=== PATIENT | male | born 1995 | race Caucasian/White ===

== ENCOUNTER 2020-03-03 11:52 | Emergency (ER) | payer SELFPAY ==
[2020-03-03 12:08] VITALS: BP 122/71; PULSE 85; RESP 16; TEMP 36.8; O2SAT 99
[2020-03-03 12:10] VITALS: BP 122/71; PULSE 85; RESP 16; TEMP 36.8; O2SAT 99
--- NOTE | 2020-03-03 12:21 | ED.URI ---
HPI - URI/Sore Throat General Chief Complaint: Upper Respiratory Infection Stated Complaint: Cold Sx Source: patient and RN notes reviewed Mode of arrival: ambulatory Limitations: no limitations History of Present Illness HPI Narrative: This is a 24-year-old white male that presented today complaining of sinus congestion and pain. Patient notes that he started having symptoms on Saturday. He did attempt to get an appointment at his doctor's office but was unable to. Patient was concerned about possible upper respiratory infection. Patient also complains of tenderness over sinuses and clear rhinorrhea. I will treat patient with antihistamine in my opinion it is too early to treat with antibiotics. The patient denies SOB, CP, palpitation, extremity numbness, lightheadedness, dizziness, constipation, diarrhea, chills, or fever. Patient did have to miss work due to his illness. Patient received a work statement and will return to work on Saturday03/07/2020. In my professional opinion patient does not need to be screened for COVID-19 he does not have a fever, dry cough, headache, loss of taste or smell, difficulty breathing, chest pain or aches or pains. MD elicited complaint: nasal congestion and sinus pain Related Data Allergies Allergy/AdvReac Type Severity Reaction Status Date / Time No Known Allergies Allergy Verified 03/03/20 12:01 Review of Systems Review of Systems: All systems reviewed & are unremarkable except as noted in HPI and below (10 point system review) Exam Narrative: Exam Narrative: GENERAL: This is a well-nourished, well-developed patient, in no apparent distress. HEAD: normocephalic, atraumatic. EYES: PERRL. Sclera clear/white. Vision is grossly intact. EARS: External ears normal, auditory canals clear and without drainage, TMs normal without perforation. Hearing grossly intact. NOSE: External nose normal with no obvious nasal discharge, nares without redness, patient has rhinorrhea, sinus tenderness THROAT: Mucous membranes moist, posterior pharynx clear. NECK: Neck supple, non-tender without lymphadenopathy, masses or thyromegaly. CARDIOVASCULAR: Regular rate and rhythm without murmurs, gallops, or rubs. RESPIRATORY: Clear to auscultation. Breath sounds equal bilaterally. No wheezes, rales, or rhonchi. GASTROINTESTINAL: Abdomen soft, non-tender, nondistended. Bowel sounds are active. No hepato-splenomegaly, or palpable masses. No guarding. SKIN: warm, intact with no suspicious lesions or rash, good texture and turgor. NEURO: awake, alert, and oriented to person, place and time. There were no obvious focal neurologic abnormalities. Steady gait EXTREMITIES: Normal range of motion. No edema. No calf tenderness. Negative Homans sign bilaterally. BACK: Nontender without deformity or crepitance. No flank tenderness. Const: General: no acute distress Course Course Emergency Course: Patient will discharge with antihistamine. Will not prescribe any antibiotics not deemed necessary at this time Vital Signs Vital signs: Vital Signs Temperature 98.2 F 03/03/20 12:08 Pulse Rate 85 03/03/20 12:08 Respiratory Rate 16 03/03/20 12:08 Blood Pressure 122/71 03/03/20 12:08 Pulse Oximetry 99 03/03/20 12:08 Temperature 98.2 F 03/03/20 12:10 Pulse Rate 85 03/03/20 12:10 Respiratory Rate 16 03/03/20 12:10 Blood Pressure 122/71 03/03/20 12:10 Pulse Oximetry 99 03/03/20 12:10 Discharge Plan Discharge Clinical Impression: Sinusitis, Upper respiratory infection Patient Disposition: Home, Self-Care Condition: Stable Instructions: Antibiotic Form, Sinusitis (ED) Additional Instructions: This is likely viral illness, no antibiotic is needed at this time. Treatment is aimed toward your specific symptoms. You must treat your symptoms in order to feel better while the virus runs it's course. Recommend antihistamine such as Benadryl at night time and Claritin/Zyrtec/Viktoriya during the
== END 2020-03-03 12:22 | disposition home or self-care (01) ==
PROVIDERS: Emergency Provider Nurse Practitioner; PCP Nurse Practitioner Family
DX: J32.9 Chronic sinusitis, unspecified (principal); J06.9 Acute upper respiratory infection, unspecified; J45.909 Unspecified asthma, uncomplicated; E11.9 Type 2 diabetes mellitus without complications
CPT/HCPCS: 99213; G0463

== ENCOUNTER 2020-11-10 16:28 | Emergency (ER) | payer OTHER, SELFPAY ==
--- NOTE | ~2020-11-10 | CT_ITS ---
EXAMINATION: CT abdomen pelvis wo con DATE: 11/10/2020 21:01 INDICATION: Abdominal pain. Vomiting. TECHNIQUE: Computed tomography (CT) of the abdomen and pelvis was performed without intravenous contr ast. Automated exposure control and iterative reconstruction technique were employed. The dose-length product was 202.18 mGy-cm. COMPARISON: None. FINDINGS: The visualized portions of the lung bases are clear without pneumonia or pleural effusion. The heart size is normal. No pericardial effusion. The liver, gallbladder, spleen, pancreas, adrenal glands, and kidneys are normal. There is no urolithiasis. There are no dilated loops of bowel. The ap pendix is normal. There are no pathologically enlarged lymph nodes. There is no free intraperitoneal fluid. There is mild thoracolumbar spondylosis. IMPRESSION: 1. No etiology for the patient's symptoms. Reviewed, dictated and finalized at location A.
--- NOTE | 2020-11-10 16:58 | ED.GENADULT ---
HPI - General Adult General Chief complaint: Nausea/Vomiting/Diarrhea Stated complaint: vomiting Time Seen by Provider: 11/10/20 16:33 Source: RN notes reviewed History of Present Illness HPI narrative: Patient presents emergency department from home for nausea vomiting. Patient states symptoms again yesterday morning if continued throughout today she has been unable to keep anything down denies any fevers or chills, chest pain shortness of breath abdominal pain diarrhea or any other symptoms states he is not taking medications for the symptoms Related Data Allergies Allergy/AdvReac Type Severity Reaction Status Date / Time No Known Allergies Allergy Verified 11/10/20 17:07 Review of Systems Review of Systems: Narrative: Gen.: Denies fevers or chills ENT: Denies congestion Respiratory: Denies shortness of breath or cough CV: Denies chest pain or palpitations GI: See HPI Musculoskeletal: Denies back pain or muscle pain Neuro: Denies numbness, tingling, weakness or focal weakness Skin: Denies rash Except as documented, all other systems reviewed and negative [facility] Past Medical History Medical History (Updated 11/10/20 @ 21:41 by Afshin Bass DO) Patient denies significant medical history Social History Social History (Updated 11/10/20 @ 16:59 by Afshin Bass DO) Smoking status: Current every day smoker Exam Narrative: Exam Narrative: APPEARANCE: No acute distress, nontoxic, resting in bed EYES: EOMI HEENT: Normocephalic, atraumatic, OMM RESPIRATORY: No respiratory distress Clear to auscultation bilaterally with no rhonchi wheezing or rales. CARDIOVASCULAR: Regular rate and rhythm without murmurs rubs or gallops. ABDOMINAL: Soft, nontender, nondistended, no rebound or guarding MUSCULOSKELETAl: Moves all extremities. No clubbing, cyanosis or edema. NEURO: Awake and alert. Following commands, speech normal, no focal deficits SKIN:: Warm, dry. No rashes lesions or abrasions PSYCHIATRIC: Normal affect/mood, Course Course Emergency Course: Patient able to eat and drink in ED states he is feeling better this time patient does states he has a history of recurrent nausea vomiting has never had formal work-up for Will refer to GI Discussed with patient results of workup and diagnosis. Repeat abdominal exam is soft and nontender. Discussed need for follow-up with primary care, proper use of medication, and reasons to return to the emergency department. Patient understands and agrees to current treatment plan Vital Signs Vital signs: Vital Signs Temperature 98.3 F 11/10/20 17:00 Pulse Rate 51 L 11/10/20 17:00 Respiratory Rate 20 11/10/20 17:00 Blood Pressure 142/70 H 11/10/20 17:00 Pulse Oximetry 95 11/10/20 17:00 Temperature 98.3 F 11/10/20 17:00 Pulse Rate 56 L 11/10/20 21:38 Respiratory Rate 18 11/10/20 21:38 Blood Pressure 105/55 L 11/10/20 21:38 Pulse Oximetry 99 11/10/20 21:38 Medical Decision Making Vital Signs Vital Signs: Vital Signs Temperature 98.3 F 11/10/20 17:00 Pulse Rate 51 L 11/10/20 17:00 Respiratory Rate 20 11/10/20 17:00 Blood Pressure 142/70 H 11/10/20 17:00 Pulse Oximetry 95 11/10/20 17:00 Temperature 98.3 F 11/10/20 17:00 Pulse Rate 56 L 11/10/20 21:38 Respiratory Rate 18 11/10/20 21:38 Blood Pressure 105/55 L 11/10/20 21:38 Pulse Oximetry 99 11/10/20 21:38 Lab Data Result diagrams: 11/10/20 17:02 11/10/20 20:14 Labs: Lab Results 11/10/20 11/10/20 11/10/20 Range/Units 17:02 17:02 18:21 WBC 15.4 H (4.5-10.0) K/mm3 RBC 5.76 (4.6-6.20) M/mm3 Hgb 17.8 (14.0-18.0) g/dL Hct 50.9 (42.0-52.0) % MCV 88.4 (80-100) fl MCH 30.9 (26-34) pg MCHC 35.0 (32-36) g/dl RDW 12.2 (11.5-14.5) % Plt Count 428 H (150-375) k/mm3 MPV 9.3 (7.4-10.4) fl Immature Gran % (Auto) 0.3 (0-0.5) % Neut % (Auto) 80.0 H (45.5-73.1) % Lymph % (A
[2020-11-10 17:00] VITALS: BP 142/70; PULSE 51; RESP 20; TEMP 36.8; O2SAT 95
[2020-11-10 17:10] LABS: Basophils Percent Auto 0.2 % (0.2-1.2); Eosinophils Percent Auto 0.1 % (0-4.4); Hematocrit 50.9 % (42.0-52.0); Hemoglobin 17.8 g/dL (14.0-18.0); Immature Granulocyte Absolute 0.05 K/mm3 (0.00-0.031); Immature Granulocyte Percent A 0.3 % (0-0.5); Lymphocytes Absolute Auto 1.63 K/mm3 (0.9-3.2); Lymphocytes Percent Auto 10.6 % (18.3-44.2); Mean Corpuscular Hemoglobin 30.9 pg (26-34); Mean Corpuscular Volume 88.4 fl (80-100); Mean Platelet Volume 9.3 fl (7.4-10.4); Monocytes Absolute Auto 1.4 K/mm3 (0.1-0.6); Monocytes Percent Auto 8.8 % (2.6-8.5); Neutrophils Absolute Auto 12.3 K/mm3 (1.3-6.7); Platelet Count Result 428 k/mm3 (150-375); Red Blood Count 5.76 M/mm3 (4.6-6.20); Red Cell Distribution Width 12.2 % (11.5-14.5); White Blood Count 15.4 K/mm3 (4.5-10.0)
[2020-11-10] MEDS: SODIUM CHLORIDE 0.9% IV 1,000 ML 999 ML IV CONT ×3 (17:21→21:36)
[2020-11-10] MEDS: ONDANSETRON INJ 4 MG/2 ML VIAL IV PUSH (17:21)
[2020-11-10 18:00] LABS: Alanine Aminotransferase 20 U/L (4-50); Albumin Level 5.4 g/dL (3.5-5.1); Alkaline Phosphatase 101 U/L (38-126); Aspartate Amino Transferase 29 U/L (17-59); Bilirubin,Total 2.1 mg/dL (0.2-1.3); Blood Urea Nitrogen 56 mg/dL (9-20); Calcium 10.4 mg/dL (8.4-10.2); Carbon Dioxide > 40 mmol/L (22-30); Chloride 72 mmol/L (98-107); Estimated Glomerular Filt Rate > 60; Glucose 168 mg/dL (75-110); Lipase 31 U/L (23-300); Potassium 3.3 mmol/L (3.4-5.0); Sodium 132 mmol/L (137-145)
[2020-11-10 18:22] VITALS: BP 143/78; PULSE 52; RESP 22; O2SAT 96
[2020-11-10 18:39] LABS: Add Urine Microscopic? YES; Appearance Urine Clear (Clear); Bacteria Urine Trace /hpf; Bilirubin Urine Negative (Negative); Blood Urine Negative (Negative); Color Urine Yellow (Yellow); Glucose Urine UA Negative (Negative); Ketones Urine 1+ mg/dL (Negative); Leukocyte Esterase Ur Negative LEU/UL (Negative); Mucus Urine Rare /lpf; Nitrate Urine Negative (Negative); Protein Urine 3+ mg/dL (Negative); RBC Urine 0-2 /hpf (0-2); Squamous Epithelial Cell Urine Rare /hpf (Few); Urobilinogen Urine Negative mg/dL (<2.0); WBC Urine 0-3 /hpf
[2020-11-10] MEDS: SODIUM CHLORIDE 0.9% IV 50 ML 100 ML (19:31)
[2020-11-10] MEDS: PROMETHAZINE HCL 25 MG/ML AMPUL 12.5 MG IV PUSH (19:31)
[2020-11-10 19:32] VITALS: BP 113/62; PULSE 52; O2SAT 97
[2020-11-10 20:36] LABS: Anion Gap 12 mmol/L (8-16); Blood Urea Nitrogen 45 mg/dL (9-20); Calcium 8.9 mg/dL (8.4-10.2); Carbon Dioxide 37 mmol/L (22-30); Chloride 84 mmol/L (98-107); Estimated Glomerular Filt Rate > 60; Glucose 143 mg/dL (75-110); Potassium 3.7 mmol/L (3.4-5.0); Sodium 133 mmol/L (137-145)
[2020-11-10 21:38] VITALS: BP 105/55; PULSE 56; RESP 18; O2SAT 99
[2020-11-10 22:55] VITALS: BP 137/73; PULSE 62; RESP 16; O2SAT 94
== END 2020-11-10 22:55 | disposition home or self-care (01) ==
PROVIDERS: Emergency Provider Emergency Medicine; PCP Nurse Practitioner Family
DX: R11.2 Nausea with vomiting, unspecified (principal); F17.200 Nicotine dependence, unspecified, uncomplicated
CPT/HCPCS: 36415; 74176; 80048; 80053; 81001; 83690; 85025; 96361; 96374; 96375; 99284; J2405; J2550; J7030

== ENCOUNTER 2021-02-17 17:37 | Emergency (ER) | payer OTHER, SELFPAY ==
[2021-02-17 17:46] VITALS: BP 119/70; PULSE 88; RESP 20; TEMP 36.7; O2SAT 100
--- NOTE | 2021-02-17 18:24 | ED.GENADULT ---
HPI - General Adult General Chief complaint: Wound/Laceration Stated complaint: insect bite Time Seen by Provider: 02/17/21 18:18 Source: patient and RN notes reviewed Mode of arrival: ambulatory Limitations: no limitations History of Present Illness HPI narrative: Patient presents today no work note. 4 days ago he was stung by a few wasps, 1 to the back of the neck, 1 to the back of the left leg, and 1 to the back of the right shoulder. For the days following this, he states he experienced some nausea and vomiting with decreased appetite and some body aches. He has not felt like going to work. The nausea and vomiting has since resolved, but the body aches have persisted. The bee stings themselves have been healing properly without any signs of infection. He has not been taking any medication for his body aches, joint aches. Patient also states he has had joint aches in the past does not necessarily believe that his current joint aches are related to the wasp stings. MD complaint: Joint pain, work note Related Data Allergies Allergy/AdvReac Type Severity Reaction Status Date / Time No Known Allergies Allergy Verified 11/10/20 17:07 Review of Systems Review of Systems: CONSTITUTIONAL: Denies fever, chills, or sweats. EYES: Denies visual changes, redness, or discharge. ENT: Denies rhinorrhea, congestion, sore throat, or otalgia. CARDIOVASCULAR: Denies chest pain, palpitations, or edema. RESPIRATORY: Denies cough or dyspnea. GASTROINTESTINAL: Denies abdominal pain, nausea, vomiting, or diarrhea. GENITOURINARY: Denies dysuria or hematuria. SKIN: Denies rash, itching, or wounds. MUSCULOSKELETAL: Denies back pain.+ Joint aches, body aches NEUROLOGIC: Denies headache, numbness, tingling, or weakness. PSYCH: Denies depression or anxiety. [facility] Past Medical History Medical History (Updated 02/17/21 @ 18:29 by Ivette Rivera, FIRST PRESS OPERATOR, ) Patient denies significant medical history Social History Social History (Updated 11/10/20 @ 16:59 by Afshin Bass DO) Smoking status: Current every day smoker Comments At time of signature, I have reviewed and agree with nursing past medical, surgical, social and family history unless otherwise noted. Please see nursing chart for further information. There is no relevant family history pertinent to the presenting complaint Exam Narrative: GENERAL: Well-appearing, well-nourished, and in no acute distress. HEAD: Normocephalic, atraumatic. EYES: EOMI. No redness or drainage. Conjunctivae normal. ENT: Mucous membranes pink and moist. NECK: Normal AROM. Supple. No lymphadenopathy. CHEST: No respiratory distress. Clear to auscultation. HEART: Regular rate and rhythm. No murmur appreciated. Normal peripheral pulses. ABDOMEN: Soft, nontender, nondistended, normal active bowel sounds. MUSCULOSKELETAL: No bony tenderness. EXTREMITIES: Normal range of motion. No edema. SKIN: Warm, dry, no rash. Capillary refill normal. Normal skin turgor. Stings to the back of the neck and shoulder are not visualized. Insect sting to the left popliteal fossa is healing appropriately without signs of bacterial infection. NEURO: No focal deficits. Alert and oriented x3. Gait steady. PSYCH: Normal affect. No signs of depression or anxiety. Course Vital Signs Vital signs: Vital Signs Temperature 98.0 F 02/17/21 17:46 Pulse Rate 88 02/17/21 17:46 Respiratory Rate 20 02/17/21 17:46 Blood Pressure 119/70 02/17/21 17:46 Pulse Oximetry 100 02/17/21 17:46 Temperature 98.0 F 02/17/21 17:46 Pulse Rate 88 02/17/21 17:46 Respiratory Rate 20 02/17/21 17:46 Blood Pressure 119/70 02/17/21 17:46 Pulse Oximetry 100 02/17/21 17:46 Reviewed Medical Decision Making Differential Diagnosis Differential Diagnosis: Viral syndrome, rheumatological disorder, nausea and vomiting, gastroenteritis, food poisoning, Vital Signs Vital Signs: Vital Signs Temperature 98.0 F 1
== END 2021-02-17 18:34 | disposition home or self-care (01) ==
PROVIDERS: Emergency Provider Nurse Practitioner; PCP Nurse Practitioner Family
DX: M25.541 Pain in joints of right hand (principal); F17.200 Nicotine dependence, unspecified, uncomplicated
CPT/HCPCS: 99212; G0463

== ENCOUNTER 2021-04-13 14:58 | Inpatient (IN) | payer OTHER, SELFPAY ==
[2021-04-13] VITALS (9 sets, daily range): BP systolic 136–167; BP diastolic 85–109; PULSE 79–100; RESP 12–18; TEMP 36.3–36.9; O2SAT 96–99; BMI 21.3
--- NOTE | ~2021-04-13 | XR_ITS ---
EXAMINATION: XR chest 2V DATE: 04/19/2021 13:50 INDICATION: Smoker presenting with cough and leukocytosis TECHNIQUE: PA and lateral views of the chest were obtained. COMPARISON: None FINDINGS: The lungs are clear with no focal airspace opacities, pulmonary edema, pleural effusion or pneumothor ax. The cardiomediastinal silhouette is normal. Mild anterior wedging of a couple adjacent mid thorac ic vertebral bodies. IMPRESSION: 1. No acute cardiopulmonary disease. Reviewed, dictated and finalized at location A. ITY MANAGER
--- NOTE | ~2021-04-13 | CT_ITS ---
EXAMINATION: CT BRAIN W/O DATE: 04/20/2021 13:18 INDICATION: Hyponatremia TECHNIQUE: Computed tomography (CT) of the head was performed without intravenous contrast. The dose- length product was 605.33 mGy-cm. Automated exposure control and iterative reconstruction technique w ere employed. COMPARISON: CT dated 06/10/2013 FINDINGS: Normal brain parenchymal volume for age. Normal bridges-white differentiation. No acute intrac ranial hemorrhage, infarction, mass or mass effect. No ventriculomegaly or midline shift. Midline sagittal images demonstrate a normal corpus callosum, c raniovertebral junction and sella turcica. Basilar cisterns are patent. Paranasal sinuses and mastoids are pneumatized. No depressed skull fractures. IMPRESSION: 1. No acute intracranial abnormality. Reviewed, dictated and finalized at location B. AL MANAGER
--- NOTE | ~2021-04-13 | CT_ITS ---
EXAMINATION: CT abdomen pelvis w con DATE: 04/13/2021 17:05 INDICATION: Abdomen pain TECHNIQUE: Computed tomography (CT) of the abdomen and pelvis was performed with 100 cc Omnipaque 350 intravenous contrast. The dose-length product was 207.53 mGy-cm. Automated exposure control and iter ative reconstruction technique were employed. COMPARISON: CT dated 11/10/2020 FINDINGS: Lung bases are normal. No significant pleural or pericardial effusion. Heart size is normal . No significant vascular abnormality. No lymphadenopathy. Fatty infiltration of the liver. The spleen, pancreas, adrenal glands and kidneys are normal. Gallbla dder is present. Nonobstructive bowel gas pattern. No abnormal pelvic masses or fluid collections. No free air or free fluid. No acute osseous abnormality. IMPRESSION: 1. No acute abdominal abnormality. No findings to account for patient's symptoms. Reviewed, dictated and finalized at location A. ARY WORKER IMPRESSION: 1. No acute abdominal abnormality. No findings to account for patient's symptom s.
--- NOTE | 2021-04-13 15:12 | ED.GENADULT ---
HPI - General Adult General Chief complaint: Nausea/Vomiting/Diarrhea Stated complaint: n/v Time Seen by Provider: 04/13/21 15:00 Source: RN notes reviewed History of Present Illness HPI narrative: Patient presents emergency room from home for weakness. Patient states he has been having nausea and vomiting for the past 6 days he states that with this he has had progressive weakness states he has a history of hypokalemia and states it feels the same as prior states nausea vomiting is associated with diffuse abdominal pain described as cramping denies any fevers or chills chest pain shortness of breath cough diarrhea or any other symptoms Related Data Allergies Allergy/AdvReac Type Severity Reaction Status Date / Time No Known Allergies Allergy Verified 11/10/20 17:07 Review of Systems Review of Systems: Gen.: Denies fevers or chills ENT: Denies congestion Respiratory: Denies shortness of breath or cough CV: Denies chest pain or palpitations GI: See HPI Musculoskeletal: Denies back pain or muscle pain Neuro: Denies numbness, tingling, weakness or focal weakness Skin: Denies rash Except as documented, all other systems reviewed and negative [facility] Past Medical History Medical History Patient denies significant medical history Social History Social History Smoking status: Current every day smoker Exam Narrative: APPEARANCE: No acute distress, nontoxic, resting in bed HEENT: Normocephalic, atraumatic, OMM RESPIRATORY: No respiratory distress, clear to auscultation bilaterally with no rhonchi wheezing or rales CARDIOVASCULAR: RRR s murmur ABDOMINAL: Soft nondistended diffusely tender palpation no rebound or guarding MUSCULOSKELETAl: Moves all extremities. No clubbing, cyanosis or edema. NEURO: Awake and alert. Following commands, speech normal, no focal deficits SKIN:: Warm, dry. Normal Color PSYCHIATRIC: Normal affect/mood Course Course Emergency Course: Discussed with pharmacy currently out of potassium bee to make potassium drip and 400 mL pharmacy states can give 100 mL peripherally and will put in pharmacist will put in order Discussed with CORINNA Muñoz for Dr Carrion presentation work-up agrees with admission at this time Discussed with patient and family results of workup and diagnosis. Discussed need for admission. Patient and family understand and agree to current treatment plan Vital Signs Vital signs: Vital Signs Temperature 97.3 F L 04/13/21 15:03 Pulse Rate 92 04/13/21 15:03 Respiratory Rate 16 04/13/21 15:03 Blood Pressure 167/109 H 04/13/21 15:03 Pulse Oximetry 98 04/13/21 15:03 Temperature 97.3 F L 04/13/21 15:03 Pulse Rate 90 04/13/21 16:24 Respiratory Rate 12 04/13/21 16:24 Blood Pressure 152/92 H 04/13/21 16:24 Pulse Oximetry 99 04/13/21 16:24 Medical Decision Making Vital Signs Vital Signs: Vital Signs Temperature 97.3 F L 04/13/21 15:03 Pulse Rate 92 04/13/21 15:03 Respiratory Rate 16 04/13/21 15:03 Blood Pressure 167/109 H 04/13/21 15:03 Pulse Oximetry 98 04/13/21 15:03 Temperature 97.3 F L 04/13/21 15:03 Pulse Rate 90 04/13/21 16:24 Respiratory Rate 12 04/13/21 16:24 Blood Pressure 152/92 H 04/13/21 16:24 Pulse Oximetry 99 04/13/21 16:24 Lab Data Result diagrams: 04/13/21 15:14 04/13/21 15:14 Labs: Lab Results 04/13/21 04/13/21 04/13/21 Range/Units 15:14 15:14 15:14 WBC 13.9 H (4.5-10.0) K/mm3 RBC 5.57 (4.6-6.20) M/mm3 Hgb 18.0 (14.0-18.0) g/dL Hct 47.5 (42.0-52.0) % MCV 85.3 (80-100) fl MCH 32.3 (26-34) pg MCHC 37.9 H (32-36) g/dl RDW 11.5 (11.5-14.5) % Plt Count 477 H (150-375) k/mm3 MPV 9.3 (7.4-10.4) fl Immature Gran % (Auto) 0.8 H (0-0.5) % Neut % (Auto) 70.5 (45.5-73.1) % Lymph % (Auto) 17.6 L (1
[2021-04-13 15:22] LABS: Basophils Percent Auto 0.3 % (0.2-1.2); Eosinophils Absolute Auto 0.1 K/mm3 (0-0.3); Eosinophils Percent Auto 0.8 % (0-4.4); Hematocrit 47.5 % (42.0-52.0); Immature Granulocyte Absolute 0.11 K/mm3 (0.00-0.031); Immature Granulocyte Percent A 0.8 % (0-0.5); Lymphocytes Absolute Auto 2.44 K/mm3 (0.9-3.2); Lymphocytes Percent Auto 17.6 % (18.3-44.2); Mean Corpuscular HGB Conc 37.9 g/dl (32-36); Mean Corpuscular Hemoglobin 32.3 pg (26-34); Mean Corpuscular Volume 85.3 fl (80-100); Mean Platelet Volume 9.3 fl (7.4-10.4); Monocytes Absolute Auto 1.4 K/mm3 (0.1-0.6); Neutrophils Absolute Auto 9.8 K/mm3 (1.3-6.7); Neutrophils Percent Auto 70.5 % (45.5-73.1); Platelet Count Result 477 k/mm3 (150-375); Red Blood Count 5.57 M/mm3 (4.6-6.20); Red Cell Distribution Width 11.5 % (11.5-14.5); White Blood Count 13.9 K/mm3 (4.5-10.0)
--- NOTE | 2021-04-13 15:40 | ECG_ITS ---
Measurements Intervals [place] Rate: 82 P: 63 UT: 135 QRS: 59 QRSD: 83 T: 20 QT: 520 QTc: 609 Interpretive Statements SINUS RHYTHM ST-T WAVE ABNORMALITY IN INFERIOR LEADS- CONSIDER ISCHEMIA BASELINE ARTIFACT- I, II, AVR, AVL, AVF, V5 ABNORMAL ECG Electronically Signed On 04-13-2021 22:00:09 [employer] by Mehrdad Rosenthal D.O.
[2021-04-13 15:41] LABS: Alanine Aminotransferase 25 U/L (4-50); Albumin Level 5.1 g/dL (3.5-5.1); Alkaline Phosphatase 91 U/L (38-126); Aspartate Amino Transferase 41 U/L (17-59); Bilirubin,Total 1.6 mg/dL (0.2-1.3); Blood Urea Nitrogen 27 mg/dL (9-20); Calcium 9.8 mg/dL (8.4-10.2); Carbon Dioxide > 40 mmol/L (22-30); Chloride 58 mmol/L (98-107); Estimated CRCL calculation 106 ml/min; Estimated Glomerular Filt Rate > 60; Glucose 254 mg/dL (65-110); Lipase 88 U/L (23-300); Magnesium 2.2 mg/dL (1.6-2.3); Potassium 2.8 mmol/L (3.4-5.0); Sodium 120 mmol/L (137-145)
[2021-04-13 15:55] LABS: Platelet Estimate Adequate (Adequate)
[2021-04-13] MEDS: SODIUM CHLORIDE 0.9% IV 1,000 ML 999 ML IV CONT (16:20)
[2021-04-13 16:25] LABS: Add Urine Microscopic? YES; Appearance Urine Cloudy (Clear); Bilirubin Urine Negative (Negative); Blood Urine Negative (Negative); Color Urine Amber (Yellow); Glucose Urine UA 3+ mg/dL (Negative); Ketones Urine 1+ mg/dL (Negative); Leukocyte Esterase Ur Negative LEU/UL (Negative); Mucus Urine Moderate /lpf; Nitrate Urine Negative (Negative); Protein Urine 2+ mg/dL (Negative); Specific Grav Ur 1.023 (1.001-1.035); Squamous Epithelial Cell Urine Rare /hpf (Few)
[2021-04-13 16:42] LABS: Alveolar/Arterial O2 Gradient 17.4 mmHg; Base Excess ABG 16.8 mEq/l (+/-2.0); Fractional Inspired Oxygen 21 %; HCO3 ABG 41.5 mEq/l (22.0-26.0); Oxygen Content ABG 22.3 %vol (16.0-22.0); Oxygen Saturation ABG 96.7 % (95.0-100.0); PCO2 ABG 46.7 mmHg (35.0-45.0); PO2 ABG 76.4 mmHg (80.0-100.0); PO2 FiO2 Ratio Arterial Blood 3.64 %; Total Hemoglobin 17.1 g/dL (12.0-18.0)
[2021-04-13 16:45] LABS: Device ROOM AIR; Modified Allen's Test Pass; Site Drawn LEFT RADIAL; pH ABG 7.567 (7.350-7.450)
[2021-04-13] MEDS: POTASSIUM CHLORIDE 20 MEQ TABLET 40 MEQ PO (17:30)
--- NOTE | 2021-04-13 19:16 | PC.NURSE ---
IV NS not fully infused, sent up to floor.
--- NOTE | 2021-04-13 19:36 | ADMGEN ---
This patient, Jose L Enriquez, was admitted to IMU Room 207-01 at 1930 on 04/13/21. Patient/family oriented to hospital policies and general routines including ID bracelet, bed and alarms, visiting hours, pain management, procedures, bathroom and other care routines, personal items, smoking policy, room service/diet, and visiting hours. Information on how to activate the Rapid Response Team has been discussed. Patient/Family are encouraged to report perceived risks to care and to ask questions if they do not understand what they are told or what they should do.
--- NOTE | 2021-04-13 20:00 | PM.IMHP ---
H&P: HPI History of Present Illness Date/Time: 04/13/21 20:00 Chief Complaint: Nausea, vomiting, and weakness. Narrative: This is a 26-year-old male smoker with history of GERD, diabetes, asthma, depression, and anxiety who presented to the emergency department earlier today from home for evaluation of nausea, vomiting, and weakness. Per patient report he began having nausea and vomiting last Saturday though he is unable to further qualify. It sounds as though he has not been able to keep much down and over the past couple of days he has gotten increasingly more weak with lightheadedness/dizziness upon standing. He has also noticed that his heart seems to be racing and that his urine output has decreased with darker colored urine. Within the last day or so he developed cramps in his legs similar to when he was hospitalized earlier this year at [facility] with hypokalemia and he came in today for evaluation. He was found to have several electrolyte abnormalities including a sodium of 120, potassium 2.8, chloride 58, and a serum carbon dioxide of greater than 40. He has potassium supplements at home that he will take if he feels that he needs them but he does not take them daily. According to the external medication history, he has not had any prescriptions filled since November 2020. He does not have visually take any [id number] medications or supplements though does admit to occasionally taking Tums for GERD or MiraLax if he feels as though he is getting constipated. No known personal or family history of genetic kidney disorder. Review of Systems Review of Systems: Twelve systems were reviewed. Weight has remained stable. No fever, chills, or sweats. No recent cold or flu symptoms. He denies sick contacts. No chest pain or shortness of breath. No cough. No diarrhea. No dysuria. Except as documented, all other systems were reviewed and are negative. [facility] Past Medical History Medical History (Updated 04/13/21 @ 21:15 by Wanda Tariq PA-C) Anxiety Asthma Depression Gastroesophageal reflux disease Tobacco dependence Type 2 diabetes mellitus Surgical History Surgical History (Updated 04/13/21 @ 21:03 by Wanda Tariq PA-C) No history of previous surgery Family History Family History (Updated 04/13/21 @ 21:03 by Wanda G. Gerling, PA-C) Mother Thyroid disease Social History Social History (Updated 04/13/21 @ 21:04 by Wanda Tariq PA-C) Social History: Surrogate decision maker: Tobi Whitlock, father. Code status: Full code. Smoking packs per day: 1 Smoking cigarettes per day: 20.0 Years smoked: 8 Smoking pack-years: 8.00 Smoking status: Current every day smoker Tobacco type: cigarettes Second hand tobacco smoke exposure: Yes Alcohol intake: former Substance use type: marijuana Additional living arrangements comments: Resides in [place]. Additional occupation/education comments: Works for an [employer]. Meds Home Medications and Allergies Home Medications Medication Instructions Recorded Confirmed Type famotidine [Pepcid] 20 mg PO DAILY #14 tablet 11/10/20 Rx Allergies Allergy/AdvReac Type Severity Reaction Status Date / Time No Known Allergies Allergy Verified 11/10/20 17:07 Vital Signs Vital Signs - 24 hr 04/13/21 15:03 04/13/21 16:24 04/13/21 18:24 Temperature 97.3 F L Pulse Rate 92 90 79 Respiratory Rate 16 12 Blood Pressure 167/109 H 152/92 H 136/88 Pulse Oximetry 98 99 04/13/21 18:25 04/13/21 18:27 04/13/21 20:00 Temperature 98.2 F Pulse Rate 96 99 100 Respiratory Rate 18 Blood Pressure 155/101 H 146/90 H 138/95 H Pulse Oximetry 97 04/13/21 20:18 Temperature Pulse Rate Respiratory Rate Blood Pressure Pulse Oximetry 98 Exam Narrative: General: Well-developed male supine in bed in no distress. Weight: 58.2 kg. BMI: 21.4. HEENT: PERRL, EOMI. Sclerae anicteric. Tacky mucous membranes. Neck: Supple. Res
[2021-04-13 20:06] LABS: Glucose Point of Care 135 mg/dl (65-105)
[2021-04-13 22:18] LABS: Total Protein Urine Random 11 mg/dL
[2021-04-13 22:20] LABS: Potassium Urine Random 35.8 meq/L; Sodium Urine Random 80 meq/L
[2021-04-13 22:30] LABS: Hemoglobin A1C 6.1 % (<5.7)
[2021-04-13 22:37] LABS: Blood Urea Nitrogen 23 mg/dL (9-20); Calcium 9.4 mg/dL (8.4-10.2); Carbon Dioxide > 40 mmol/L (22-30); Chloride 64 mmol/L (98-107); Estimated CRCL calculation 114 ml/min; Estimated Glomerular Filt Rate > 60; Glucose 164 mg/dL (65-110); Magnesium 2.2 mg/dL (1.6-2.3); Phosphorus 2.6 mg/dL (2.5-4.5); Potassium 2.5 mmol/L (3.4-5.0); Sodium 120 mmol/L (137-145)
[2021-04-13 23:25] LABS: Glucose Point of Care 181 mg/dl (65-105)
[2021-04-13] MEDS: POTASSIUM CHLORIDE 20 MEQ PACKET (FOR LIQUID) 40 MEQ PO (23:26)
[2021-04-14] VITALS (11 sets, daily range): BP systolic 122–137; BP diastolic 58–84; PULSE 64–94; RESP 16–18; TEMP 36.2–36.6; O2SAT 9–100
[2021-04-14 00:37] LABS: Free T4 Free Thyroxine Reflex 1.82 ng/dL (0.78-2.19)
[2021-04-14] MEDS: FAMOTIDINE 20 MG/2 ML VIAL IV PUSH ×3 (01:10→20:09)
[2021-04-14 01:26] LABS: Total Triiodothyronine (T3) 1.22 NG/ML (0.97-1.69)
[2021-04-14] MEDS: SODIUM CHLORIDE 0.9% IV 1,000 ML 125 ML IV CONT ×3 (01:35→17:36)
[2021-04-14 04:58] LABS: Hematocrit 39.1 % (42.0-52.0); Hemoglobin 14.6 g/dL (14.0-18.0); Mean Corpuscular HGB Conc 37.3 g/dl (32-36); Mean Corpuscular Hemoglobin 31.5 pg (26-34); Mean Corpuscular Volume 84.4 fl (80-100); Mean Platelet Volume 9.2 fl (7.4-10.4); Platelet Count Result 425 k/mm3 (150-375); Red Blood Count 4.63 M/mm3 (4.6-6.20); Red Cell Distribution Width 11.6 % (11.5-14.5); White Blood Count 14.1 K/mm3 (4.5-10.0)
[2021-04-14 05:20] LABS: Blood Urea Nitrogen 19 mg/dL (9-20); Calcium 9.1 mg/dL (8.4-10.2); Carbon Dioxide > 40 mmol/L (22-30); Chloride 76 mmol/L (98-107); Estimated CRCL calculation 114 ml/min; Estimated Glomerular Filt Rate > 60; Glucose 133 mg/dL (65-110); Magnesium 2.2 mg/dL (1.6-2.3); Potassium 3.4 mmol/L (3.4-5.0); Sodium 120 mmol/L (137-145)
[2021-04-14] MEDS: KCL 20 MEQ/SW 100 ML 100 ML 50 MEQ IVPB ×2 (07:34→10:19)
[2021-04-14 09:48] LABS: Glucose Point of Care 114 mg/dl (65-105)
[2021-04-14 12:49] LABS: Glucose Point of Care 133 mg/dl (65-105)
--- NOTE | 2021-04-14 13:17 | PM.CNNEP ---
Assessment and Plan Assessment and plan (1) Hyponatremia: Code(s): E87.1 - Hypo-osmolality and hyponatremia Status: Acute Assessment and Plan: history would suggest hypovolemia as etiology however, minimal improvement with normal saline IVFs TSH and cortisol okay check SPEP and UPEP; follow-up on serum/urine omolality continue IVFs for now noted initiation of salt tabs... follow repeat sodium levels (2) Hypokalemia: Code(s): E87.6 - Hypokalemia Status: Acute Assessment and Plan: presumably due to GI loss and diminished oral intake improving with K+ supplementation monitor magnesium as well (3) Metabolic alkalosis: Code(s): E87.3 - Alkalosis Status: Chronic Assessment and Plan: somewhat of a chronic issue from review of records related to GI issues(?) versus some other etiology.... follow for now (4) Nausea and vomiting: Code(s): R11.2 - Nausea with vomiting, unspecified Status: Acute Assessment and Plan: supportive treatment IVFs and IV antiemetics Will continue to follow History of Present Illness Reason for Consult Consult date: 04/14/21 Reason for consult: hyponatremia and hypokalemia Chief Complaint Chief complaint: Hypnoatremia,Hypokalemia, Nausea Vomiting, Prolong History of Present Illness Narrative: The patient is a 26-year-old male with a past medical history as outlined below who presented to [facility] Emergency room with complaints of nausea, vomiting, and generalized weakness According to the patient, he started having issues and problems with nausea and vomiting about a week ago but he is unable to give details in terms of how many times he vomited and how long each episode lasted. In any case, due to the nausea and vomiting, he has had poor oral intake for last several days if not longer. He reports that he has also noted increasing weakness and has had difficulty with lightheadedness and dizziness as well. He also reports subjective symptoms of tachycardia and that his urine output seems to be less than normal. He subsequently presented to the hospital emergency room for further evaluation Workup and evaluation emergency room demonstrated the patient be hemodynamically stable) effect a somewhat hypertensive) but in moderate distress secondary to the nausea vomiting and fatigue. Routine blood test demonstrated multiple electrolyte abnormalities including a sodium of 120, potassium of 2.8 climb a chloride of 58, and a serum carbon dioxide greater than 40. from review of his records, some of these electrolyte abnormalities are not a new finding. He was given supplemental potassium as well as IV fluids and subsequently admitted to the hospital for further evaluation and therapy. Since admission, his potassium has been slowly improving with aggressive supplementation but his serum sodium has been slow to do so in spite of IV fluid resuscitation. His nausea and vomiting appear to be doing better as he was eating a meal at the time of my visit without any problems/issues. Renal consultation was requested due to his hyponatremia as well as hypokalemia on presentation to the hospital. As already mentioned, his potassium appears to be improving with aggressive supplementation but his sodium level has not changed all that significantly. As already mentioned, he denies any history of excessive free water intake and if anything, his fluid intake has been suboptimal in the last week given his nausea and vomiting. He is not on any specific medications with regard to SSRIs, seizure medications, or narcotics although his urine tox screen did show evidence of marijuana and opioids. Currently, at the time my visit, he appears to be in no acute distress. Review of Systems Review of Systems: As per HPI. [facility] Past Medical History Medical History (Updated 04/15/21 @ 07:06 by Zheng Reza MD) Anxiety Ast
[2021-04-14 13:43] LABS: Amphetamine Screen Urine Negative (Negative); Barbiturate Screen Urine Negative (Negative); Benzodiazepines Screen Urine Negative (Negative); Cannabinoid Screen Urine Positive (Negative); Cocaine Screen Urine Negative (Negative); Methadone Screen Urine Negative (Negative); Opiate Screen Urine Positive (Negative); Phencyclidine Screen Urine Negative (Negative)
[2021-04-14 13:46] LABS: Potassium Urine Random 36.6 meq/L; Sodium Urine Random 36 meq/L
[2021-04-14 17:03] LABS: Glucose Point of Care 138 mg/dl (65-105)
[2021-04-14] MEDS: SODIUM CHLORIDE 1 GM TABLET PO (17:37)
[2021-04-14 18:10] LABS: Albumin Level 3.7 g/dL (3.5-5.1); Anion Gap 7 mmol/L (8-16); Blood Urea Nitrogen 21 mg/dL (9-20); Calcium 8.3 mg/dL (8.4-10.2); Carbon Dioxide 33 mmol/L (22-30); Chloride 82 mmol/L (98-107); Estimated CRCL calculation 91 ml/min; Estimated Glomerular Filt Rate > 60; Glucose 115 mg/dL (65-110); Phosphorus 1.2 mg/dL (2.5-4.5); Potassium 3.4 mmol/L (3.4-5.0); Sodium 122 mmol/L (137-145)
--- NOTE | 2021-04-14 18:45 | PM.IMPN ---
Progress Note: A&P Assessment and Plan (1) Volume depletion: Code(s): E86.9 - Volume depletion, unspecified Status: Acute Assessment and Plan: The patient originally presented to the emergency department with complaints of persistent nausea vomiting and weakness since last Saturday. He reports several day of vomiting and poor oral intake. Urine toxicology screen is positive for opiates and cannabinoid. At presentation patient was stable and afebrile. He was actually hypertensive with a blood pressure of 167/109. Repeat blood pressure was 152/92 in the emergency department. Initial chemistry revealed profound electrolyte disturbances with hyponatremia serum sodium of 120, potassium of 2.5, chloride of 64, bicarbonate of 40, BUN 23, creatinine 0.7. Calcium magnesium and phosphorous were normal 9.4, 2.2 and 2.6 respectively. Patient was started on supplementation with potassium is potassium was normalized this morning. (2) Hypokalemia: Code(s): E87.6 - Hypokalemia Status: Acute Assessment and Plan: Patient has reported persistent vomiting for several days. Urine tox screen is positive for cannabinoid. He may have had hyperemesis disorder secondary to cannabinoid ingestion. Potassium was improved after repletion. (3) Hyponatremia: Code(s): E87.1 - Hypo-osmolality and hyponatremia Status: Acute Assessment and Plan: The etiology of his hypo natremia isn't clear. His urine toxicology revealed opiates and cannabinoid. He is hypertensive at presentation with a blood pressure of 167/109. He started on high IV fluids with mild improvement of serum sodium from 120-122. Nephrology has been consulted. (4) Hypochloremia: Code(s): E87.8 - Other disorders of electrolyte and fluid balance, not elsewhere classified Status: Acute Assessment and Plan: Patient presents significant metabolic alkalosis and hypochloremia. Currently being evaluated by Nephrology for and hydrated electrolytic disorder. (5) Metabolic alkalosis: Code(s): E87.3 - Alkalosis Status: Acute Assessment and Plan: As above. (6) Prolonged QT interval: Code(s): R94.31 - Abnormal electrocardiogram [ECG] [EKG] Status: Acute Assessment and Plan: Repeat EKG after correction of potassium (7) Gastroesophageal reflux disease: Code(s): K21.9 - Gastro-esophageal reflux disease without esophagitis Status: Acute Assessment and Plan: Start PPI. (8) Type 2 diabetes mellitus with hyperglycemia: Code(s): E11.65 - Type 2 diabetes mellitus with hyperglycemia Status: Acute Assessment and Plan: His A1c 6.1. Send C-peptide. Nonicteric Accu-Cheks every 6 hours. Start insulin sliding scale coverage. (9) Tobacco dependence: Code(s): F17.200 - Nicotine dependence, unspecified, uncomplicated Status: Acute Assessment and Plan: Counseled. (10) Nausea and vomiting: Code(s): R11.2 - Nausea with vomiting, unspecified Status: Acute Assessment and Plan: If Zofran p.r.n.. Patient counseled to stop cannabinoid likely the culprit. Additional Plan The patient presented to the emergency department today with nausea, vomiting, and progressive weakness since last Saturday. He is quite dehydrated with multiple electrolyte abnormalities as detailed above with evidence of metabolic alkalosis on ABG. At this time he will be admitted to the IMU for closer monitoring given electrolyte abnormalities and prolonged QT (due to electrolyte abnormalities?). His electrolytes will be replaced and monitored closely and he will be hydrated overnight. Will check urine electrolytes given multiple abnormalities. I did offer him some water this evening and he began to vomit again thus we will continue with NPO status for now as I am hesitant to give him any antiemetics given his long QT. CT of the abdomen pelvis did not show any a
[2021-04-14] MEDS: PANTOPRAZOLE 40 MG TABLET PO (20:09)
[2021-04-14] MEDS: POTASSIUM/PHOSPHORUS/SODIUM 1.5 GM PACKET 1 PACKET PO (20:09)
--- NOTE | 2021-04-14 20:45 | PC.NURSE ---
This patient, Jose L Enriquez, was transferred to [facility] on 04/14/21 at 2035. Personal belongings sent with patient. Report given to Lesa JIMENEZ. Appropriate documentation sent with patient.
--- NOTE | 2021-04-14 22:19 | PC.NURSE ---
This patient, Jose L Enriquez, was received from [ IMU] on 04/14/21 at 2030. Patient/family oriented to unit policies and routines
[2021-04-15] VITALS (13 sets, daily range): BP systolic 124–141; BP diastolic 66–85; PULSE 76–94; RESP 16; TEMP 36.3–36.7; O2SAT 98–99
[2021-04-15] MEDS: SODIUM CHLORIDE 0.9% IV 1,000 ML 125 ML IV CONT (03:26)
[2021-04-15 06:46] LABS: Hematocrit 35.4 % (42.0-52.0); Hemoglobin 12.9 g/dL (14.0-18.0); Mean Corpuscular HGB Conc 36.4 g/dl (32-36); Mean Corpuscular Hemoglobin 32.7 pg (26-34); Mean Corpuscular Volume 89.6 fl (80-100); Mean Platelet Volume 9.4 fl (7.4-10.4); Platelet Count Result 303 k/mm3 (150-375); Red Blood Count 3.95 M/mm3 (4.6-6.20); Red Cell Distribution Width 11.6 % (11.5-14.5); White Blood Count 10.3 K/mm3 (4.5-10.0)
[2021-04-15 08:15] LABS: Glucose Point of Care 133 mg/dl (65-105)
[2021-04-15] MEDS: SODIUM CHLORIDE 1 GM TABLET PO (08:48)
[2021-04-15] MEDS: FAMOTIDINE 20 MG/2 ML VIAL IV PUSH ×2 (08:48→20:35)
[2021-04-15] MEDS: POTASSIUM CHLORIDE 20 MEQ PACKET (FOR LIQUID) 40 MEQ PO (08:48)
[2021-04-15] MEDS: PANTOPRAZOLE 40 MG TABLET PO ×2 (08:48→20:35)
[2021-04-15 09:00] LABS: Anion Gap 5 mmol/L (8-16); Blood Urea Nitrogen 11 mg/dL (9-20); Calcium 8.8 mg/dL (8.4-10.2); Carbon Dioxide 36 mmol/L (22-30); Chloride 88 mmol/L (98-107); Estimated CRCL calculation 114 ml/min; Estimated Glomerular Filt Rate > 60; Glucose 119 mg/dL (65-110); Magnesium 1.8 mg/dL (1.6-2.3); Potassium 3.8 mmol/L (3.4-5.0); Sodium 129 mmol/L (137-145)
--- NOTE | 2021-04-15 09:33 | PM.IMPN ---
Progress Note: A&P Assessment and Plan (1) Volume depletion: Code(s): E86.9 - Volume depletion, unspecified Status: Acute Assessment and Plan: The patient originally presented to the emergency department with complaints of persistent nausea vomiting and weakness since last Saturday. He reports several days of vomiting and poor oral intake. Urine toxicology screen is positive for opiates and cannabinoid. At presentation patient was stable and afebrile. He was actually hypertensive with a blood pressure of 167/109. Repeat blood pressure was 152/92 in the emergency department. Blood pressure today is 138/85. Initial chemistry revealed profound electrolyte disturbances with hyponatremia serum sodium of 120, potassium of 2.5, chloride of 64, bicarbonate of 40, BUN 23, creatinine 0.7. Calcium magnesium and phosphorous were normal 9.4, 2.2 and 2.6 respectively. Patient was started on IV fluid resuscitation, was repleted with potassium. His serum sodium improved from 120 to 129 within the last 24 hours. (2) Hypokalemia: Code(s): E87.6 - Hypokalemia Status: Acute Assessment and Plan: Patient has reported persistent vomiting for several days. Urine tox screen is positive for cannabinoid. He may have had hyperemesis disorder secondary to cannabinoid ingestion. Potassium was improved after repletion. Patient was counseled to quit using marijuana. (3) Hyponatremia: Code(s): E87.1 - Hypo-osmolality and hyponatremia Status: Acute Assessment and Plan: Initially with mild improvement of serum sodium from 120 to 122. Overnight the serum sodium had improved from 120 to 129 with the last 24 hours. IV normal saline and salt tablets were stopped. Patient was started on dextrose and receive 1 dose of DDAVP per Renal recommendation. Will follow-up the next serum sodium closely. (4) Hypochloremia: Code(s): E87.8 - Other disorders of electrolyte and fluid balance, not elsewhere classified Status: Acute Assessment and Plan: Patient presents significant metabolic alkalosis and hypochloremia. This seems to have been a chronic issue for him. He is improving with IV fluid resuscitation. Follow-up Nephrology recommendations. (5) Metabolic alkalosis: Code(s): E87.3 - Alkalosis Status: Chronic Assessment and Plan: As above. (6) Prolonged QT interval: Code(s): R94.31 - Abnormal electrocardiogram [ECG] [EKG] Status: Acute Assessment and Plan: Repeat EKG today. (7) Gastroesophageal reflux disease: Code(s): K21.9 - Gastro-esophageal reflux disease without esophagitis Status: Acute Assessment and Plan: Continue PPI. give tums as needed for indigestion. (8) Type 2 diabetes mellitus with hyperglycemia: Code(s): E11.65 - Type 2 diabetes mellitus with hyperglycemia Status: Acute Assessment and Plan: His A1c 6.1. C-peptide is pending. TSH was normal. random cortisol was low at 15. We will send cosyntropin stimulation test per Nephrology recommendation. (9) Tobacco dependence: Code(s): F17.200 - Nicotine dependence, unspecified, uncomplicated Status: Acute Assessment and Plan: Counseled. (10) Nausea and vomiting: Code(s): R11.2 - Nausea with vomiting, unspecified Status: Acute Assessment and Plan: Continue Zofran p.r.n.. Patient counseled to stop cannabinoid which appears to be the culprit. Subjective Date/time seen: 04/15/21 09:33 S: Patient was examined at the bedside. He is feeling better. He still reports some low back pain with vomiting. Muscle pain is improving. Review of Systems Review of Systems: All systems reviewed & are unremarkable except as noted in HPI and below Constitutional: Constitutional: Reports as per HPI, Reports fatigue, Reports lethargy and Reports poor appetite Eyes: Eyes: Reports as per HPI and Reports no additional eye co
[2021-04-15] MEDS: DEXTROSE 5% IN WATER 500 ML 180 ML IV CONT (10:41)
[2021-04-15] MEDS: DESMOPRESSIN ACETATE 4 MCG/ML AMP 2 MCG IV PUSH ×2 (10:42→14:41)
--- NOTE | 2021-04-15 11:23 | PM.PNNEP ---
Progress Note: A&P Assessment and Plan (1) Hyponatremia: Code(s): E87.1 - Hypo-osmolality and hyponatremia Status: Acute Assessment and Plan: Hyponatremia. TSH okay, and cortisol is below 15. Will check Cortrosyn stim test. check SPEP and UPEP; follow-up on serum/urine omolality Sodium corrected from 120-129 over the last 24hours. Will give D5W for 2hours and a shot of DDAVP and follow his sodium levels. He is getting salt tablets plus saline. Will check a sodium level after the D 5 W is in. Then go from there. (2) Hypokalemia: Code(s): E87.6 - Hypokalemia Status: Acute Assessment and Plan: presumably due to GI loss and diminished oral intake (3) Metabolic alkalosis: Code(s): E87.3 - Alkalosis Status: Chronic Assessment and Plan: somewhat of a chronic issue from review of records May be due to GI issues. May be due to hypokalemia. follow for now (4) Nausea and vomiting: Code(s): R11.2 - Nausea with vomiting, unspecified Status: Acute Assessment and Plan: This is improved. Getting D5W now. Depending on sodium level may restart saline or half-normal saline after that. Subjective Date/time seen: 04/15/21 11:23 Interval history: Patient feels better. He still has some lower back pain that came with vomiting. Exam Narrative: GENERAL APPEARANCE: well developed well nourished male in no acute distress HEENT: normocephalic, atraumatic, CARDIOVASCULAR: RRR, normal S1 and S2, no rub or gallop RESPIRATORY: clear ABDOMEN: soft, nontender, nondistended, positive bowel sounds present EXTREMITIES: no evidence of cyanosis, clubbing, or edema Objective Data Vital Signs Vital Signs: Vital Signs - 24 hr 04/14/21 12:00 04/14/21 16:00 04/14/21 20:50 Temperature 36.6 C 36.6 C Pulse Rate 77 77 85 Respiratory Rate 18 16 Blood Pressure 127/58 L 137/84 Pulse Oximetry 100 100 04/14/21 23:19 04/15/21 06:00 04/15/21 08:00 Temperature 36.5 C Pulse Rate 76 76 Respiratory Rate 16 16 Blood Pressure 124/66 Pulse Oximetry 99 99 99 Intake/Output Intake/Output: Intake & Output 04/12/21 04/13/21 04/14/21 04/15/21 23:59 23:59 23:59 23:59 Intake Total 3500 1790 Output Total 1400 600 Balance 2100 1190 Meds/Results Medications: Active Medications Generic Name Dose Route Start Last Admin Trade Name Freq PRN Reason Stop Dose Admin Dextrose 12.5 gm 04/13/21 21:13 Dextrose 50% 25 Gm/50 Ml Syringe IV PUSH PRN PRN Hypoglycemia Protocol Diphenhydramine HCl 25 mg 04/14/21 18:56 Diphenhydramine Hcl Cap 25 Mg Capsule PO Q6H PRN nausea and vomiting Famotidine 20 mg 04/13/21 21:00 04/15/21 08:48 Famotidine 20 Mg/2 Ml Vial IV PUSH 20 mg Q12HR JANNA Administration Glucagon 1 mg 04/13/21 21:13 Glucagon For Inj 1 Mg Vial IM PRN PRN Hypoglycemia Protocol Glucose 15 gm 04/13/21 21:13 Glucose Oral Gel 15 Gm Of Glucse In 37.5 Gm Tube PO PRN PRN Hypoglycemia Protocol Dextrose 1,000 mls @ 100 mls/hr 04/13/21 21:13 Dextrose 5% 1,000 Ml IVPB PRN PRN Hypoglycemia Protocol Dextrose 500 mls @ 180 mls/hr 04/15/21 09:50 04/15/21 10:41 Dextrose 5% In Water IV CONT 04/15/21 11:49 180 mls/hr .[id number] JANNA Administration Insulin Aspart 2 - 5 units 04/14/21 08:00 04/15/21 08:03 Insulin Aspart (*Bkc) 100 Units/Ml SUB-Q Not Given TIDWM JANNA Protocol Pantoprazole Sodium 40 mg 04/14/21 21:00 04/15/21 08:48 Pantoprazole 40 Mg Tablet PO 40 mg Q12HR JANNA Administration Potassium Chloride 40 meq 04/15/21 09:00 04/15/21 08:48 Potassium Chloride 20 Meq Packet (For Liquid) PO 40 meq DAILY JANNA Administration Radiology Results: ITS Impressions Abdomen/Pelvis CT 04/13/21 17:07 IMPRESSION: 1. No acute abdominal abnormality. No findings to account for patient's symptom
[2021-04-15 11:54] LABS: Glucose Point of Care 138 mg/dl (65-105)
[2021-04-15 12:47] LABS: Sodium 129 mmol/L (137-145)
[2021-04-15 12:51] LABS: Anion Gap 5 mmol/L (8-16); Blood Urea Nitrogen 11 mg/dL (9-20); Calcium 8.7 mg/dL (8.4-10.2); Carbon Dioxide 35 mmol/L (22-30); Chloride 88 mmol/L (98-107); Estimated CRCL calculation 114 ml/min; Estimated Glomerular Filt Rate > 60; Glucose 106 mg/dL (65-110); Potassium 3.8 mmol/L (3.4-5.0); Sodium 128 mmol/L (137-145)
[2021-04-15 12:51] LABS: Phosphorus 1.4 mg/dL (2.5-4.5)
[2021-04-15] MEDS: diphenhydrAMINE HCl CAP 25 MG CAPSULE PO (12:58)
--- NOTE | 2021-04-15 13:19 | PM.EVENT ---
Event Note Event Note Event Note: Patient repeat serum sodium is 129. Will repeat DDAVP single dose and start dextrose at 180 cc/hour follow-up serum sodium 1 hour after DDAVP. His phosphorous remains low at 1.6. We will start supplementation with Neutra-Phos a pack 3 times a day for 2 days. Case was discussed with Dr. Varela, power technician.
--- NOTE | 2021-04-15 14:07 | ECG_ITS ---
Measurements Intervals [place] Rate: 68 P: 26 NV: 141 QRS: 27 QRSD: 83 T: 9 QT: 440 QTc: 470 Interpretive Statements SINUS RHYTHM NONSPECIFIC ST ELEVATION IN ANTERIOR LEADS BORDERLINE T WAVE ABNORMALITY- INFERIOR LEADS BORDERLINE ECG Electronically Signed On 04-15-2021 15:58:55 COMMODITIES CLERK by Mehrdad Rosenthal D.O.
[2021-04-15] MEDS: POTASSIUM/PHOSPHORUS/SODIUM 1.5 GM PACKET 1 PACKET PO ×2 (14:41→18:01)
[2021-04-15] MEDS: DEXTROSE 5% 1,000 ML 1,000 ML 180 ML IV CONT ×2 (14:41→23:09)
[2021-04-15 15:11] LABS: Sodium 123 mmol/L (137-145)
[2021-04-15 16:38] LABS: Glucose Point of Care 112 mg/dl (65-105)
[2021-04-15 16:49] LABS: Phosphorus 1.8 mg/dL (2.5-4.5)
[2021-04-15 20:18] LABS: Sodium 121 mmol/L (137-145)
[2021-04-16] VITALS (7 sets, daily range): BP systolic 132–145; BP diastolic 70–86; PULSE 79–93; RESP 16–18; TEMP 36.2–36.6; O2SAT 99–100
[2021-04-16] MEDS: DEXTROSE 5% 1,000 ML 1,000 ML 180 ML IV CONT ×2 (03:36→18:07)
[2021-04-16 05:01] LABS: Osmolality, Urine 711 mOsm/kg (50-1200)
[2021-04-16 06:11] LABS: C-Peptide 1.43 ng/mL (0.80-3.85)
[2021-04-16 06:51] LABS: Hematocrit 34.6 % (42.0-52.0); Hemoglobin 12.9 g/dL (14.0-18.0); Mean Corpuscular HGB Conc 37.3 g/dl (32-36); Mean Corpuscular Hemoglobin 33.2 pg (26-34); Mean Corpuscular Volume 89.2 fl (80-100); Mean Platelet Volume 9.5 fl (7.4-10.4); Platelet Count Result 358 k/mm3 (150-375); Red Blood Count 3.88 M/mm3 (4.6-6.20); Red Cell Distribution Width 11.6 % (11.5-14.5); White Blood Count 12.1 K/mm3 (4.5-10.0)
[2021-04-16 07:07] LABS: Albumin Level 3.6 g/dL (3.5-5.1); Anion Gap 4 mmol/L (8-16); Blood Urea Nitrogen 7 mg/dL (9-20); Calcium 8.8 mg/dL (8.4-10.2); Carbon Dioxide 31 mmol/L (22-30); Chloride 87 mmol/L (98-107); Estimated CRCL calculation 132 ml/min; Estimated Glomerular Filt Rate > 60; Glucose 166 mg/dL (65-110); Magnesium 1.6 mg/dL (1.6-2.3); Phosphorus 1.7 mg/dL (2.5-4.5); Potassium 3.7 mmol/L (3.4-5.0); Sodium 122 mmol/L (137-145)
[2021-04-16 08:42] LABS: Glucose Point of Care 135 mg/dl (65-105)
--- NOTE | 2021-04-16 09:04 | PM.IMPN ---
Progress Note: A&P Assessment and Plan (1) Volume depletion: Code(s): E86.9 - Volume depletion, unspecified Status: Acute Assessment and Plan: The patient originally presented to the emergency department with complaints of persistent nausea vomiting and weakness since last Saturday. He reports several days of vomiting and poor oral intake. Urine toxicology screen is positive for opiates and cannabinoid. At presentation patient was stable and afebrile. He was actually hypertensive with a blood pressure of 167/109. Repeat blood pressure was 152/92 in the emergency department. Blood pressure today is 138/85. Initial chemistry revealed profound electrolyte disturbances with hyponatremia serum sodium of 120, potassium of 2.5, chloride of 64, bicarbonate of 40, BUN 23, creatinine 0.7. Calcium magnesium and phosphorous were normal 9.4, 2.2 and 2.6 respectively. Patient was started on IV fluid resuscitation, was repleted with potassium. His serum sodium improved from 120 to 129 within the last 24 hours. 04/16/2021 Patient is feeling slightly better now, will continue current treatment. Monitor electrolytes. (2) Hypokalemia: Code(s): E87.6 - Hypokalemia Status: Acute Assessment and Plan: Patient has reported persistent vomiting for several days. Urine tox screen is positive for cannabinoid. He may have had hyperemesis disorder secondary to cannabinoid ingestion. Potassium was improved after repletion. Patient was counseled to quit using marijuana. 04/16/2021 Improving slightly, will continue to monitor electrolytes. (3) Hyponatremia: Code(s): E87.1 - Hypo-osmolality and hyponatremia Status: Acute Assessment and Plan: Initially with mild improvement of serum sodium from 120 to 122. Overnight the serum sodium had improved from 120 to 129 with the last 24 hours. IV normal saline and salt tablets were stopped. Patient was started on dextrose and receive 1 dose of DDAVP per Renal recommendation. Will follow-up the next serum sodium closely. 04/16/2021 Sodium is still low, will continue to monitor. Nephrology consult noted (4) Hypochloremia: Code(s): E87.8 - Other disorders of electrolyte and fluid balance, not elsewhere classified Status: Acute Assessment and Plan: Patient presents significant metabolic alkalosis and hypochloremia. This seems to have been a chronic issue for him. He is improving with IV fluid resuscitation. Follow-up Nephrology recommendations. (5) Metabolic alkalosis: Code(s): E87.3 - Alkalosis Status: Chronic Assessment and Plan: As above. (6) Prolonged QT interval: Code(s): R94.31 - Abnormal electrocardiogram [ECG] [EKG] Status: Acute Assessment and Plan: Repeat EKG today. (7) Gastroesophageal reflux disease: Code(s): K21.9 - Gastro-esophageal reflux disease without esophagitis Status: Acute Assessment and Plan: Continue PPI. give tums as needed for indigestion. (8) Type 2 diabetes mellitus with hyperglycemia: Code(s): E11.65 - Type 2 diabetes mellitus with hyperglycemia Status: Acute Assessment and Plan: His A1c 6.1. C-peptide is pending. TSH was normal. random cortisol was low at 15. We will send cosyntropin stimulation test per Nephrology recommendation. (9) Tobacco dependence: Code(s): F17.200 - Nicotine dependence, unspecified, uncomplicated Status: Acute Assessment and Plan: Counseled. (10) Nausea and vomiting: Code(s): R11.2 - Nausea with vomiting, unspecified Status: Acute Assessment and Plan: Continue Zofran p.r.n.. Patient counseled to stop cannabinoid which appears to be the culprit. Additional Plan 04/16/2021 Patient is feeling slightly better. Decrease nausea and vomiting. Electrolytes are slightly better. Plan is to continue current plan of care and treatment. Repeat labs in the morning.
[2021-04-16] MEDS: POTASSIUM CHLORIDE 20 MEQ PACKET (FOR LIQUID) 40 MEQ PO (09:40)
[2021-04-16] MEDS: FAMOTIDINE 20 MG/2 ML VIAL IV PUSH ×2 (09:40→21:18)
[2021-04-16] MEDS: PANTOPRAZOLE 40 MG TABLET PO ×2 (09:41→21:18)
[2021-04-16] MEDS: POTASSIUM/PHOSPHORUS/SODIUM 1.5 GM PACKET 1 PACKET PO ×3 (09:41→18:07)
--- NOTE | 2021-04-16 11:04 | PM.PNNEP ---
Progress Note: A&P Assessment and Plan (1) Hyponatremia: Code(s): E87.1 - Hypo-osmolality and hyponatremia Status: Acute Assessment and Plan: Hyponatremia. TSH okay, and cortisol is below 15. Will check Cortrosyn stim test. check SPEP and UPEP; follow-up on serum/urine omolality Sodium corrected from 120-129 over the last 24hours. he was given D5W for 2hours and a shot of DDAVP and follow his sodium levels. the sodium level did not change. I talked with Dr. Hearn who ordered D5W for another 2hours. He did received more D5W overnight. Now sodium level is 122. He is urinating a lot he says. Will stop the D5W. He could over correct once again. Will check a sodium level at 1:00 p.m. and determine under go from there. (2) Hypokalemia: Code(s): E87.6 - Hypokalemia Status: Acute Assessment and Plan: presumably due to GI loss and diminished oral intake his phosphorus was low as well. This is being corrected (3) Metabolic alkalosis: Code(s): E87.3 - Alkalosis Status: Chronic Assessment and Plan: somewhat of a chronic issue from review of records May be due to GI issues. May be due to hypokalemia. This is improved. (4) Nausea and vomiting: Code(s): R11.2 - Nausea with vomiting, unspecified Status: Acute Assessment and Plan: This is improved. Subjective Date/time seen: 04/16/21 11:04 Interval history: Jose L feels okay. No chest pain or shortness of breath. Exam Narrative: GENERAL APPEARANCE: well developed well nourished male in no acute distress HEENT: normocephalic, atraumatic, CARDIOVASCULAR: RRR, normal S1 and S2, no rub or gallop RESPIRATORY: clear bilaterally ABDOMEN: soft, nontender, nondistended, positive bowel sounds present EXTREMITIES: no edema Objective Data Vital Signs Vital Signs: Vital Signs - 24 hr 04/15/21 12:00 04/15/21 12:25 04/15/21 12:30 Temperature Pulse Rate 94 Respiratory Rate Blood Pressure 141/69 H 137/79 Pulse Oximetry 04/15/21 12:35 04/15/21 15:45 04/15/21 16:00 Temperature 36.7 C Pulse Rate 78 92 Respiratory Rate 16 Blood Pressure 138/85 135/76 Pulse Oximetry 99 04/15/21 20:00 04/15/21 20:05 04/15/21 20:10 Temperature Pulse Rate Respiratory Rate Blood Pressure 130/84 135/84 124/79 Pulse Oximetry 04/15/21 21:59 04/15/21 23:03 04/16/21 06:00 Temperature 36.3 C L 36.6 C Pulse Rate 82 86 Respiratory Rate 16 16 Blood Pressure 130/84 132/74 Pulse Oximetry 99 98 99 04/16/21 08:00 Temperature Pulse Rate 86 Respiratory Rate 16 Blood Pressure Pulse Oximetry 99 Intake/Output Intake/Output: Intake & Output 04/13/21 04/14/21 04/15/21 04/16/21 23:59 23:59 23:59 23:59 Intake Total 3500 4005 1840 Output Total 1400 600 Balance 2100 3405 1840 Meds/Results Medications: Active Medications Generic Name Dose Route Start Last Admin Trade Name Freq PRN Reason Stop Dose Admin Dextrose 12.5 gm 04/13/21 21:13 Dextrose 50% 25 Gm/50 Ml Syringe IV PUSH PRN PRN Hypoglycemia Protocol Diphenhydramine HCl 25 mg 04/14/21 18:56 04/15/21 12:58 Diphenhydramine Hcl Cap 25 Mg Capsule PO 25 mg Q6H PRN Administration nausea and vomiting Enoxaparin Sodium 40 mg 04/16/21 09:00 Enoxaparin 40 Mg/0.4 Ml Syringe SUB-Q DAILY JANNA Famotidine 20 mg 04/13/21 21:00 04/16/21 09:40 Famotidine 20 Mg/2 Ml Vial IV PUSH 20 mg Q12HR JANNA Administration Glucagon 1 mg 04/13/21 21:13 Glucagon For Inj 1 Mg Vial IM PRN PRN Hypoglycemia Protocol Glucose 15 gm 04/13/21 21:13 Glucose Oral Gel 15 Gm Of Glucse In 37.5 Gm Tube PO PRN PRN Hypoglycemia Protocol Dextrose 1,000 mls @ 100 mls/hr 04/13/21 21:13 Dextrose 5% 1,000 Ml IVPB PRN PRN Hypoglycemia Protocol Dextrose 1,000 mls @ 180 mls/hr 04/15/21 13:20
[2021-04-16 12:19] LABS: Glucose Point of Care 136 mg/dl (65-105)
[2021-04-16] MEDS: ENOXAPARIN 40 MG/0.4 ML SYRINGE SUB-Q (13:09)
[2021-04-16 13:26] LABS: Sodium 130 mmol/L (137-145)
[2021-04-16] MEDS: DESMOPRESSIN ACETATE 4 MCG/ML AMP 2 MCG IV PUSH (14:50)
[2021-04-16] MEDS: NICOTINE (*PBKC) 21 MG PATCH 1 PATCH TRANSDERM (15:08)
[2021-04-16 16:15] LABS: Glucose Point of Care 212 mg/dl (65-105)
[2021-04-16 17:41] LABS: Sodium 133 mmol/L (137-145)
[2021-04-16 17:45] LABS: Phosphorus 2.1 mg/dL (2.5-4.5)
[2021-04-16] MEDS: INSULIN ASPART (*BKC) 100 UNITS/ML SUB-Q (18:04)
--- NOTE | 2021-04-16 18:07 | PM.EVENT ---
Event Note Event Note Event Note: Patient anxious due to somewhat prolonged hospital course and need for multiple blood draws a day. Will give ativan 0.5 mg po x1.
[2021-04-16] MEDS: LORazepam (*CRX) 0.5 MG TABLET PO (18:15)
[2021-04-16 21:00] LABS: Sodium 127 mmol/L (137-145)
[2021-04-17] VITALS (12 sets, daily range): BP systolic 130–145; BP diastolic 71–84; PULSE 62–114; RESP 14–18; TEMP 35.9–36.9; O2SAT 98–100
[2021-04-17 01:18] LABS: Sodium 129 mmol/L (137-145)
[2021-04-17 07:48] LABS: Hematocrit 38.2 % (42.0-52.0); Hemoglobin 13.7 g/dL (14.0-18.0); Mean Corpuscular HGB Conc 35.9 g/dl (32-36); Mean Corpuscular Hemoglobin 31.9 pg (26-34); Mean Platelet Volume 9.1 fl (7.4-10.4); Platelet Count Result 408 k/mm3 (150-375); Red Blood Count 4.29 M/mm3 (4.6-6.20); Red Cell Distribution Width 11.8 % (11.5-14.5); White Blood Count 13.1 K/mm3 (4.5-10.0)
[2021-04-17 07:54] LABS: Alanine Aminotransferase 42 U/L (4-50); Albumin Level 3.8 g/dL (3.5-5.1); Alkaline Phosphatase 55 U/L (38-126); Anion Gap 7 mmol/L (8-16); Aspartate Amino Transferase 38 U/L (17-59); Bilirubin,Total 0.3 mg/dL (0.2-1.3); Blood Urea Nitrogen 8 mg/dL (9-20); Carbon Dioxide 28 mmol/L (22-30); Chloride 94 mmol/L (98-107); Estimated CRCL calculation 131 ml/min; Estimated Glomerular Filt Rate > 60; Glucose 143 mg/dL (65-110); Potassium 4.3 mmol/L (3.4-5.0); Sodium 129 mmol/L (137-145)
[2021-04-17 08:05] LABS: Phosphorus 2.5 mg/dL (2.5-4.5)
[2021-04-17 08:16] LABS: Glucose Point of Care 141 mg/dl (65-105)
--- NOTE | 2021-04-17 09:17 | PM.PNNEP ---
Progress Note: A&P Assessment and Plan (1) Hyponatremia: Code(s): E87.1 - Hypo-osmolality and hyponatremia Status: Acute Assessment and Plan: Hyponatremia. TSH okay, and cortisol repeat is fine. check SPEP and UPEP; follow-up on serum/urine omolality 11/10/20 Na 132 04/13 Na 120 04/14 Na 120 04/15 Na 129 given d52 and ddavp 04/16 Na 122 then 130 then 133. given d5w and then 127 04/17 Na 129. on 2000 fluids and given ddavp 1mcg. (2) Hypokalemia: Code(s): E87.6 - Hypokalemia Status: Acute Assessment and Plan: presumably due to GI loss and diminished oral intake phos okay (3) Metabolic alkalosis: Code(s): E87.3 - Alkalosis Status: Chronic Assessment and Plan: resolved (4) Nausea and vomiting: Code(s): R11.2 - Nausea with vomiting, unspecified Status: Acute Assessment and Plan: This is improved. Subjective Date/time seen: 04/17/21 09:17 Interval history: Jose L feels okay. He had some belly pain last evening but since he slept well last night he has not had any more pain. He is a bit anxious. No chest pain or shortness of breath. Exam Narrative: GENERAL APPEARANCE: well developed well nourished male in no acute distress HEENT: normocephalic, atraumatic, CARDIOVASCULAR: RRR, normal S1 and S2, no rub RESPIRATORY: clear bilaterally ABDOMEN: soft, nontender, nondistended, positive bowel sounds present EXTREMITIES: no edema Or cyanosis Objective Data Vital Signs Vital Signs: Vital Signs - 24 hr 04/16/21 12:00 04/16/21 14:00 04/16/21 15:08 Temperature 36.2 C L Pulse Rate 85 84 Respiratory Rate 18 Blood Pressure 140/70 143/74 H Pulse Oximetry 100 04/16/21 16:00 04/16/21 22:00 04/17/21 00:41 Temperature 36.3 C L Pulse Rate 93 79 Respiratory Rate 16 Blood Pressure 135/70 Pulse Oximetry 100 98 04/17/21 06:00 Temperature 36.4 C Pulse Rate 77 Respiratory Rate 16 Blood Pressure 134/84 Pulse Oximetry 100 Intake/Output Intake/Output: Intake & Output 04/14/21 04/15/21 04/16/21 04/17/21 23:59 23:59 23:59 23:59 Intake Total 3500 4005 3320 200 Output Total 4930 710 4435 Balance 2100 3405 3320 -1300 Meds/Results Medications: Active Medications Generic Name Dose Route Start Last Admin Trade Name Freq PRN Reason Stop Dose Admin Dextrose 12.5 gm 04/13/21 21:13 Dextrose 50% 25 Gm/50 Ml Syringe IV PUSH PRN PRN Hypoglycemia Protocol Diphenhydramine HCl 25 mg 04/14/21 18:56 04/15/21 12:58 Diphenhydramine Hcl Cap 25 Mg Capsule PO 25 mg Q6H PRN Administration nausea and vomiting Enoxaparin Sodium 40 mg 04/16/21 09:00 04/16/21 13:09 Enoxaparin 40 Mg/0.4 Ml Syringe SUB-Q 40 mg DAILY JANNA Administration Famotidine 20 mg 04/13/21 21:00 04/16/21 21:18 Famotidine 20 Mg/2 Ml Vial IV PUSH 20 mg Q12HR JANNA Administration Glucagon 1 mg 04/13/21 21:13 Glucagon For Inj 1 Mg Vial IM PRN PRN Hypoglycemia Protocol Glucose 15 gm 04/13/21 21:13 Glucose Oral Gel 15 Gm Of Glucse In 37.5 Gm Tube PO PRN PRN Hypoglycemia Protocol Dextrose 1,000 mls @ 100 mls/hr 04/13/21 21:13 Dextrose 5% 1,000 Ml IVPB PRN PRN Hypoglycemia Protocol Insulin Aspart 2 - 5 units 04/14/21 08:00 04/17/21 08:57 Insulin Aspart (*Bkc) 100 Units/Ml SUB-Q Not Given TIDWM JANNA Protocol Nicotine 1 patch 04/16/21 09:00 04/16/21 15:08 Nicotine (*Pbkc) 21 Mg Patch TRANSDERM 1 patch QAM JANNA Administration Pantoprazole Sodium 40 mg 04/14/21 21:00 04/16/21 21:18 Pantoprazole 40 Mg Tablet PO 40 mg Q12HR JANNA Administration Potassium Chloride 40 meq 04/15/21 09:00 04/16/21 09:40 Potassium Chloride 20 Meq Packet (For Liquid) PO 40 meq DAILY JANNA Administration Radiology Results: ITS Impressions Abdomen/Pelvis CT 04/13/21 17:07 IMPRESSION
[2021-04-17] MEDS: PANTOPRAZOLE 40 MG TABLET PO ×2 (09:23→20:37)
[2021-04-17] MEDS: FAMOTIDINE 20 MG/2 ML VIAL IV PUSH ×2 (09:23→20:37)
[2021-04-17] MEDS: ENOXAPARIN 40 MG/0.4 ML SYRINGE SUB-Q (09:23)
[2021-04-17] MEDS: POTASSIUM CHLORIDE 20 MEQ PACKET (FOR LIQUID) 40 MEQ PO (09:23)
[2021-04-17] MEDS: NICOTINE (*PBKC) 21 MG PATCH 1 PATCH TRANSDERM (09:23)
[2021-04-17] MEDS: POTASSIUM/PHOSPHORUS/SODIUM 1.5 GM PACKET 1 PACKET PO (09:24)
[2021-04-17] MEDS: DESMOPRESSIN ACETATE 4 MCG/ML AMP 1 MCG IV PUSH (12:30)
[2021-04-17 12:34] LABS: Glucose Point of Care 161 mg/dl (65-105)
[2021-04-17 12:58] LABS: Sodium 130 mmol/L (137-145)
--- NOTE | 2021-04-17 14:48 | PM.IMPN ---
Progress Note: A&P Assessment and Plan (1) Volume depletion: Code(s): E86.9 - Volume depletion, unspecified Status: Acute Assessment and Plan: Presented to ED with complaints of persistent nausea vomiting and weakness since last Saturday with several days of vomiting and poor oral intake Urine toxicology screen is positive for opiates and cannabinoid Hypertensive on admission, now stable Initial chemistry revealed profound electrolyte disturbances, improved with IVF Monitor (2) Hypokalemia: Code(s): E87.6 - Hypokalemia Status: Acute Assessment and Plan: Resolved K+ 4.3 today Multifactorial, Likely 2/2 above and cannabinoid ingestion Patient was counseled to quit using marijuana Monitor (3) Hyponatremia: Code(s): E87.1 - Hypo-osmolality and hyponatremia Status: Acute Assessment and Plan: Initially with mild improvement of serum sodium from 120 to 122 Then improved from 120 to 129 within 24 hours IV normal saline and salt tablets were stopped Nephrology following, recommendations apprecaited Continue D5 S/P DDAVP x2 doses per Renal recommendation Na+ 129-->130 today Monitor closely (4) Hypochloremia: Code(s): E87.8 - Other disorders of electrolyte and fluid balance, not elsewhere classified Status: Acute Assessment and Plan: Patient presented with significant metabolic alkalosis and hypochloremia Appears chronic Improving with IV fluid resuscitation Nephrology following, recommendations appreciated (5) Metabolic alkalosis: Code(s): E87.3 - Alkalosis Status: Chronic Assessment and Plan: Treatment as above (6) Prolonged QT interval: Code(s): R94.31 - Abnormal electrocardiogram [ECG] [EKG] Status: Acute Assessment and Plan: Last ECG showed SR, nonspecific ST elevation on 04/15 (7) Gastroesophageal reflux disease: Code(s): K21.9 - Gastro-esophageal reflux disease without esophagitis Status: Acute Assessment and Plan: Continue PPI Tums as needed for indigestion (8) Type 2 diabetes mellitus with hyperglycemia: Code(s): E11.65 - Type 2 diabetes mellitus with hyperglycemia Status: Acute Assessment and Plan: A1c 6.1 C-peptide 1.43 TSH was normal Random cortisol was low at 15 ?cosyntropin stimulation test per Nephrology recommendation, no results Accuchecks, SSI Monitor (9) Tobacco dependence: Code(s): F17.200 - Nicotine dependence, unspecified, uncomplicated Status: Acute Assessment and Plan: Counseled NicoDerm available if needed (10) Nausea and vomiting: Code(s): R11.2 - Nausea with vomiting, unspecified Status: Acute Assessment and Plan: Continue Zofran p.r.n Patient counseled to stop cannabinoid which appears to be the culprit Additional Plan Discharge pending recovery Subjective Date/time seen: 04/17/21 14:48 Interval history: Pt seen this a.m.; labs, vs, diagnostic results, consult notes reviewed; pt noted with anxiety last evening; no new complaints; still feels weak Review of Systems Review of Systems: All systems reviewed & are unremarkable except as noted in HPI and below Exam Const: General: no acute distress, alert and awake Orientation/consciousness: patient oriented x3 HENMT: Head: normocephalic and atraumatic Ears: hearing grossly normal bilaterally and external ears normal Face and sinus: face symmetric Mouth: Yes Normal oral and palatal mucosa present Eyes: EOM: EOMs intact bilaterally Neck: Neck: full ROM, trachea midline and no JVD Resp: Effort & Inspection: normal respiratory effort Auscultation: clear to auscultation bilaterally Cardio: Jugular venous distension: no JVD Rate: regular rate Rhythm: regular rhythm Heart sounds: S1 normal heart sound present and S2 normal heart sound present GI: GI Palp: Yes Soft to palpation Percussion: Yes normal to percussion Auscultation: no
[2021-04-17] MEDS: LORazepam (*CRX) 0.5 MG TABLET 0.25 MG PO (16:49)
[2021-04-17 17:16] LABS: Glucose Point of Care 133 mg/dl (65-105)
[2021-04-17 18:43] LABS: Sodium 126 mmol/L (137-145)
[2021-04-17 19:02] LABS: Hematocrit 40.5 % (42.0-52.0); Hemoglobin 14.3 g/dL (14.0-18.0)
[2021-04-18] VITALS (11 sets, daily range): BP systolic 118–138; BP diastolic 60–93; PULSE 70–102; RESP 14–24; TEMP 36.1–37.6; O2SAT 97–100
[2021-04-18] MEDS: LORazepam (*CRX) 0.5 MG TABLET 0.25 MG PO ×2 (00:06→16:35)
[2021-04-18 00:35] LABS: Hemoglobin 14.3 g/dL (14.0-18.0)
[2021-04-18 05:12] LABS: Calcium/Creatinine Ratio, Ur 138 mg/g creat (10-240); Urine Calcium, Random 16.3 mg/dL (***); Urine Creatinine, Random 118 mg/dL (20-320)
[2021-04-18 06:46] LABS: Hemoglobin 13.9 g/dL (14.0-18.0); Mean Corpuscular HGB Conc 34.8 g/dl (32-36); Mean Corpuscular Volume 92.2 fl (80-100); Platelet Count Result 446 k/mm3 (150-375); Red Blood Count 4.34 M/mm3 (4.6-6.20); Red Cell Distribution Width 12.2 % (11.5-14.5); White Blood Count 16.5 K/mm3 (4.5-10.0)
[2021-04-18 06:56] LABS: Anion Gap 7 mmol/L (8-16); Blood Urea Nitrogen 13 mg/dL (9-20); Calcium 9.5 mg/dL (8.4-10.2); Carbon Dioxide 27 mmol/L (22-30); Chloride 97 mmol/L (98-107); Estimated CRCL calculation 114 ml/min; Estimated Glomerular Filt Rate > 60; Glucose 155 mg/dL (65-110); Potassium 4.7 mmol/L (3.4-5.0); Sodium 131 mmol/L (137-145)
--- NOTE | 2021-04-18 07:16 | WPDGICN ---
Assessment and Plan Assessment and plan (1) Nausea and vomiting: Code(s): R11.2 - Nausea with vomiting, unspecified Status: Acute Assessment and Plan: this was present for almost a week before admission and present the 1st few days here. Now he is able to eat without vomiting. He denies seen blood in his emesis (2) Blood in stool: Code(s): K92.1 - Melena Status: Acute Assessment and Plan: this occurred once yesterday after a bowel movement. Was bright red but not a large amount. He had never seen blood in his stools in the past. He does not have chronic diarrhea or other symptoms of chronic colitis (3) Hypokalemia: Code(s): E87.6 - Hypokalemia Status: Acute Assessment and Plan: this has resolved. The assumption is that it was likely due at least in part to his vomiting. He is being followed by Nephrology. He was also hyponatremic with a sodium of 120. Chloride at admission was 40. (4) Abdominal pain: Code(s): R10.9 - Unspecified abdominal pain Status: Acute Assessment and Plan: given that this has been present for about a year and now with vomiting and nausea, the possibility of peptic ulcer disease is significant. I will schedule him for an EGD to be done today GI Consult Note Consult date/time: 04/18/21 07:16 HPI: Jose L Enriquez is a 26 year old male Who was admitted several days ago with a history of having had nausea and vomiting for several days. Consequently he was found to have electrolyte disorders with low sodium and low potassium. He states that he is able to eat over the last few days but still does have some abdominal pain that has been present for the past year. This is an upper abdominal pain present in the epigastric area and generalized across the upper abdomen. It is not affected by anything in particular but waxes and wanes. He denies using NSAIDs on a regular basis. He has no history of peptic ulcer disease or gallbladder disease. He has similar situation in June of this year. He was hospitalized somewhere else with hypokalemia. He has had a about 10 lb weight loss in last year. He denies excessive physical work resulting in sweating. 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 Yesterday after having a fairly normal bowel movement without straining he passed some red blood. This occurred only once. A stool Hemoccult has been ordered. He had been started on Lovenox but it was discontinued Review of Systems Review of Systems: All systems reviewed & are unremarkable except as noted in HPI and below PMFSH Past Medical History Medical History Anxiety Asthma Depression Gastroesophageal reflux disease Tobacco dependence Type 2 diabetes mellitus Surgical History Surgical History No history of previous surgery Family History Family History Mother Thyroid disease Social History Social History Social History: Surrogate decision maker: Tobi Whitlock, father. Code status: Full code. Smoking packs per day: 1 Smoking cigarettes per day: 20.0 Years smoked: 8 Smoking pack-years: 8.00 Smoking status: Current every day smoker Tobacco type: cigarettes Second hand tobacco smoke exposure: Yes Alcohol intake: former Substance use type: marijuana Additional living arrangements comments: Resides in [place]. Additional occupation/education comments: Works for an [employer] auction. Meds Home Medications and Allergies Home Medications Medication Instructions Recorded Confirmed Type famotidine [Pepcid] 20 mg PO DAILY #14 tablet 11/10/20 04/14/21 Rx Allergies Allergy/AdvReac Type Severity Reaction Status Date / Time No Known Allergie
--- NOTE | 2021-04-18 08:07 | PM.PNNEP ---
Progress Note: A&P Assessment and Plan (1) Hyponatremia: Code(s): E87.1 - Hypo-osmolality and hyponatremia Status: Acute Assessment and Plan: Hyponatremia. TSH okay, and cortisol repeat is fine. check SPEP and UPEP; follow-up on serum/urine omolality 11/10/20 Na 132 04/13 Na 120 04/14 Na 120 04/15 Na 129 given d52 and ddavp 04/16 Na 122 then 130 then 133. given d5w and then 127 04/17 Na 129. on 1999cc fluids and given ddavp 1mcg. then 127 04/18 Na 131 Continue fluid restriction of 1999. (2) Hypokalemia: Code(s): E87.6 - Hypokalemia Status: Acute Assessment and Plan: presumably due to GI loss and diminished oral intake phos okay (3) Metabolic alkalosis: Code(s): E87.3 - Alkalosis Status: Chronic Assessment and Plan: resolved (4) Nausea and vomiting: Code(s): R11.2 - Nausea with vomiting, unspecified Status: Acute Assessment and Plan: This is improved. Now GI bleeding. GI involved Subjective Date/time seen: 04/18/21 08:07 Interval history: Jose L feels okay. He developed bloody stools yesterday. No more bloody stools overnight. GI has been consulted. He is NPO for scoping. He slept pretty well. No chest pain or shortness of breath. Exam Narrative: GENERAL APPEARANCE: well developed well nourished male in no acute distress HEENT: normocephalic, atraumatic, CARDIOVASCULAR: RRR, normal S1 and S2, no rub or gallop RESPIRATORY: clear to auscultation ABDOMEN: soft, nontender, nondistended, positive bowel sounds present EXTREMITIES: no edema Or cyanosis Objective Data Vital Signs Vital Signs: Vital Signs - 24 hr 04/17/21 08:10 04/17/21 12:00 04/17/21 14:16 Temperature 36.9 C Pulse Rate 104 H 101 H 86 Respiratory Rate 14 Blood Pressure 134/76 130/71 Pulse Oximetry 100 04/17/21 16:00 04/17/21 20:00 04/17/21 21:52 Temperature 35.9 C L Pulse Rate 95 86 101 H Respiratory Rate 18 Blood Pressure 145/80 H 142/73 H Pulse Oximetry 99 99 04/17/21 21:53 04/17/21 21:54 04/18/21 05:51 Temperature 35.9 C L 36.1 C L Pulse Rate 114 H 86 90 Respiratory Rate 18 18 Blood Pressure 133/81 145/80 H 131/60 Pulse Oximetry 100 99 100 Intake/Output Intake/Output: Intake & Output 04/15/21 04/16/21 04/17/21 04/18/21 23:59 23:59 23:59 23:59 Intake Total 4005 3320 2570 400 Output Total 600 1500 Balance 3405 3320 1070 400 Meds/Results Medications: Active Medications Generic Name Dose Route Start Last Admin Trade Name Freq PRN Reason Stop Dose Admin Dextrose 12.5 gm 04/13/21 21:13 Dextrose 50% 25 Gm/50 Ml Syringe IV PUSH PRN PRN Hypoglycemia Protocol Diphenhydramine HCl 25 mg 04/14/21 18:56 04/15/21 12:58 Diphenhydramine Hcl Cap 25 Mg Capsule PO 25 mg Q6H PRN Administration nausea and vomiting Famotidine 20 mg 04/13/21 21:00 04/17/21 20:37 Famotidine 20 Mg/2 Ml Vial IV PUSH 20 mg Q12HR JANNA Administration Glucagon 1 mg 04/13/21 21:13 Glucagon For Inj 1 Mg Vial IM PRN PRN Hypoglycemia Protocol Glucose 15 gm 04/13/21 21:13 Glucose Oral Gel 15 Gm Of Glucse In 37.5 Gm Tube PO PRN PRN Hypoglycemia Protocol Dextrose 1,000 mls @ 100 mls/hr 04/13/21 21:13 Dextrose 5% 1,000 Ml IVPB PRN PRN Hypoglycemia Protocol Insulin Aspart 2 - 5 units 04/17/21 17:00 04/18/21 08:06 Insulin Aspart (*Bkc) 100 Units/Ml SUB-Q Not Given TIDWM JANNA Protocol Lorazepam 0.25 mg 04/17/21 15:02 04/18/21 00:06 Lorazepam (*Crx) 0.5 Mg Tablet PO 0.25 mg TID PRN Administration Anxiety Nicotine 1 patch 04/16/21 09:00 04/17/21 09:23 Nicotine (*Pbkc) 21 Mg Patch TRANSDERM 1 patch QAM JANNA Administration Pantoprazole Sodium 40 mg 04/14/21 21:00 04/17/21 20:37 Pantoprazole 40 Mg Tablet PO 40 mg Q12HR JANNA Administration Potassium Chloride 4
[2021-04-18] MEDS: NICOTINE (*PBKC) 21 MG PATCH 1 PATCH TRANSDERM (08:14)
[2021-04-18] MEDS: FAMOTIDINE 20 MG/2 ML VIAL IV PUSH ×2 (08:16→21:07)
[2021-04-18] MEDS: POTASSIUM CHLORIDE 20 MEQ PACKET (FOR LIQUID) 40 MEQ PO (08:17)
[2021-04-18] MEDS: PANTOPRAZOLE 40 MG TABLET PO ×2 (08:17→21:07)
[2021-04-18 08:22] LABS: Glucose Point of Care 155 mg/dl (65-105)
--- NOTE | 2021-04-18 11:03 | PC.NURSE ---
On 04/18/21, the student, [ Sabra Olsen], provided care and completed [facility] documentation on this patient. I have reviewed the student's documentation and agree with the findings.
[2021-04-18 11:51] LABS: Glucose Point of Care 142 mg/dl (65-105)
[2021-04-18] MEDS: LACTATED RINGERS 1,000 ML 150 ML IV CONT (12:56)
[2021-04-18 12:57] LABS: Glucose Point of Care 121 mg/dl (65-105)
--- NOTE | 2021-04-18 13:17 | WPDANESEPPF ---
Anes - Initial Pre Proc Eval Procedure: Operation Date: 04/18/21 13:45 Proposed Procedures p Esophagogastroduodenoscopy - Cuco Gould MD Date/Time: 04/18/21 13:17 Surgeon: Dylon Carrion MD Pre Op Diagnosis: Hypnoatremia,Hypokalemia, Nausea Vomiting, Prolong Patient Data Age: 26 Gender: M Height: 1.65 m Weight: 58.1 kg Last Vital Signs Temp 97.1 F L 04/18/21 13:06 Pulse 85 04/18/21 13:06 Resp 18 04/18/21 13:06 BP 138/71 04/18/21 13:06 Pulse Ox 100 04/18/21 13:06 Allergies Allergy/AdvReac Type Severity Reaction Status Date / Time No Known Allergies Allergy Verified 11/10/20 17:07 Home Medications Medication Instructions Recorded Confirmed Type famotidine [Pepcid] 20 mg PO DAILY #14 tablet 11/10/20 04/14/21 Rx Laboratory Tests 04/13/21 04/14/21 04/17/21 21:57 12:37 17:13 WBC RBC Hgb Hct MCV MCH MCHC RDW Plt Count MPV Sodium Potassium Chloride Carbon Dioxide Anion Gap BUN Creatinine Estim Creat Clear Calc Estimated GFR Glucose POC Capillary Glucose 133 mg/dl H mg/dl (65-105) Calcium Ur Random Creatinine 118 mg/dL mg/dL (20-320) Ur Random Phosphorus 44 mg/dL mg/dL () Ur Random Calcium 16.3 mg/dL mg/dL () Calcium/Creat Ratio 138 mg/g creat mg/g creat (10-240) 04/17/21 04/17/21 04/18/21 17:30 17:33 00:12 WBC RBC Hgb 14.3 g/dL g/dL 14.3 g/dL g/dL (14.0-18.0) (14.0-18.0) Hct 40.5 % L % 40.0 % L % (42.0-52.0) (42.0-52.0) MCV MCH MCHC RDW Plt Count MPV Sodium 126 mmol/L L mmol/L (137-145) Potassium Chloride Carbon Dioxide Anion Gap BUN Creatinine Estim Creat Clear Calc Estimated GFR Glucose POC Capillary Glucose Calcium Ur Random Creatinine Ur Random Phosphorus Ur Random Calcium Calcium/Creat Ratio 04/18/21 04/18/21 04/18/21 05:57 05:57 07:58 WBC 16.5 K/mm3 H K/mm3 (4.5-10.0) RBC 4.34 M/mm3 L M/mm3 (4.6-6.20) Hgb 13.9 g/dL L g/dL (14.0-18.0) Hct 40.0 % L % (42.0-52.0) MCV 92.2 fl fl (80-100) MCH 32.0 pg pg (26-34) MCHC 34.8 g/dl g/dl (32-36) RDW 12.2 % % (11.5-14.5) Plt Count 446 k/mm3 H k/mm3 (150-375) MPV 9.0 fl fl (7.4-10.4) Sodium 131 mmol/L L mmol/L (137-145) Potassium 4.7 mmol/L mmol/L (3.4-5.0) Chloride 97 mmol/L L mmol/L (98-107) Carbon Dioxide 27 mmol/L mmol/L (22-30) Anion Gap 7 mmol/L L mmol/L (8-16) BUN 13 mg/dL D mg/dL (9-20) Creatinine 0.70 mg/dL mg/dL (0.7-1.3) Estim Creat Clear Calc 114 ml/min ml/min Estimated GFR > 60 (59 - ) Glucose 155 mg/dL H mg/dL (65-110) POC Capillary Glucose 155 mg/dl H mg/dl (65-105) Calcium 9.5 mg/dL mg/dL (8.4-10.2) Ur Random Creatinine Ur Random Phosphorus Ur Random Calcium Calcium/Creat Ratio 04/18/21 04/18/21 11:30 12:53 WBC RBC Hgb Hct MCV MCH MCHC RDW Plt Count MPV Sodium Potassium Chloride Carbon Dioxide Anion Gap BUN Creatinine Estim Creat Clear Calc Estimated GFR Glucose
--- NOTE | 2021-04-18 14:28 | PM.IMPN ---
Progress Note: A&P Assessment and Plan (1) Volume depletion: Code(s): E86.9 - Volume depletion, unspecified Status: Acute Assessment and Plan: Presented to ED with complaints of persistent nausea vomiting and weakness since last Saturday with several days of vomiting and poor oral intake Urine toxicology screen is positive for opiates (denies use) and cannabinoid Hypertensive on admission, now stable Initial chemistry revealed profound electrolyte disturbances, improved with IVF Monitor (2) Hypokalemia: Code(s): E87.6 - Hypokalemia Status: Acute Assessment and Plan: Resolved K+ 4.3-->4.7 today Multifactorial, Likely 2/2 above and cannabinoid ingestion Patient was counseled to quit using marijuana Monitor (3) Hyponatremia: Code(s): E87.1 - Hypo-osmolality and hyponatremia Status: Acute Assessment and Plan: Initially with mild improvement of serum sodium from 120 to 122 Then improved from 120 to 129 within 24 hours IV normal saline and salt tablets were stopped Nephrology following, recommendations appreciated Continue D5 S/P DDAVP x2 doses per Renal recommendation Na+ 129-->130-->131 today Monitor closely (4) Hypochloremia: Code(s): E87.8 - Other disorders of electrolyte and fluid balance, not elsewhere classified Status: Acute Assessment and Plan: Patient presented with significant metabolic alkalosis and hypochloremia Appears chronic Improving with IV fluid resuscitation Nephrology following, recommendations appreciated (5) Metabolic alkalosis: Code(s): E87.3 - Alkalosis Status: Chronic Assessment and Plan: Treatment as above (6) Prolonged QT interval: Code(s): R94.31 - Abnormal electrocardiogram [ECG] [EKG] Status: Acute Assessment and Plan: Last ECG showed SR, nonspecific ST elevation on 04/15 (7) Gastroesophageal reflux disease: Code(s): K21.9 - Gastro-esophageal reflux disease without esophagitis Status: Acute Assessment and Plan: Continue PPI Tums as needed for indigestion (8) Type 2 diabetes mellitus with hyperglycemia: Code(s): E11.65 - Type 2 diabetes mellitus with hyperglycemia Status: Acute Assessment and Plan: A1c 6.1 C-peptide 1.43 TSH was normal Random cortisol was low at 15 ?cosyntropin stimulation test per Nephrology recommendation, no results Accuchecks, SSI Monitor (9) Tobacco dependence: Code(s): F17.200 - Nicotine dependence, unspecified, uncomplicated Status: Acute Assessment and Plan: Counseled NicoDerm available if needed (10) Nausea and vomiting: Code(s): R11.2 - Nausea with vomiting, unspecified Status: Acute Assessment and Plan: Continue Zofran p.r.n Patient counseled to stop cannabinoid which appears to be the culprit GI consulted EGD today-->reflux esophagitis, biopsies taken (11) Blood in stool: Code(s): K92.1 - Melena Status: Acute Assessment and Plan: Reported small amount of bright red blood in the stool, no previous occurrences GI consulted Stool occult ordered Digital rectal exam per GI-->no masses and blood Lovenox d/c'd Additional Plan Discharge pending recovery Subjective Date/time seen: 04/18/21 14:28 Interval history: 04/17 Pt seen this a.m.; labs, vs, diagnostic results, consult notes reviewed; pt noted with anxiety last evening; no new complaints; still feels weak Pt seen this a.m.; pt reported blood in his stool last evening; melena Review of Systems Review of Systems: All systems reviewed & are unremarkable except as noted in HPI and below Exam Const: General: no acute distress, alert and awake Orientation/consciousness: patient oriented x3 HENMT: Head: normocephalic and atraumatic Ears: hearing grossly normal bilaterally and external ears normal Face and sinus: face symmetric Mouth: Yes Normal oral and palatal mucosa presen
[2021-04-18 14:41] LABS: Glucose Point of Care 124 mg/dl (65-105)
[2021-04-18 14:59] LABS: Chloride Rand Ur 60 mmol/L (32-290); Chloride/Creatinine Rand Ur 462 (23-275); Creatinine Random Urine 13 mg/dL (20-320)
[2021-04-18 15:13] LABS: Albumin 3.4 g/dL (3.8-4.8); Alpha 1 Globulin 0.3 g/dL (0.2-0.3); Alpha 2 Globulin 0.6 g/dL (0.5-0.9); Beta 1 Globulin 0.4 g/dL (0.4-0.6); Gamma Globulin 0.7 g/dL (0.8-1.7); Interpretation Consistent with; Protein, Total 5.7 g/dL (6.1-8.1)
[2021-04-18 16:39] LABS: Phosphorus 4.1 mg/dL (2.5-4.5)
[2021-04-18 16:42] LABS: Kappa\\Lambda Light Chains 1.33 (0.26-1.65); Lambda Light Chain 14.4 mg/L (5.7-26.3)
[2021-04-18 16:47] LABS: Glucose Point of Care 185 mg/dl (65-105)
[2021-04-19] VITALS (9 sets, daily range): BP systolic 118–132; BP diastolic 77–92; PULSE 69–104; RESP 16–20; TEMP 36.8–37.4; O2SAT 99–100
[2021-04-19 04:10] LABS: Sodium 134 mmol/L (137-145)
[2021-04-19 06:31] LABS: Hematocrit 40.4 % (42.0-52.0); Mean Corpuscular HGB Conc 34.7 g/dl (32-36); Mean Corpuscular Hemoglobin 32.4 pg (26-34); Mean Corpuscular Volume 93.5 fl (80-100); Mean Platelet Volume 8.8 fl (7.4-10.4); Platelet Count Result 480 k/mm3 (150-375); Red Blood Count 4.32 M/mm3 (4.6-6.20); Red Cell Distribution Width 12.5 % (11.5-14.5); White Blood Count 17.7 K/mm3 (4.5-10.0)
[2021-04-19 07:38] LABS: Glucose Point of Care 163 mg/dl (65-105)
[2021-04-19 08:44] LABS: Albumin Level 4.1 g/dL (3.5-5.1); Anion Gap 10 mmol/L (8-16); Blood Urea Nitrogen 13 mg/dL (9-20); Calcium 9.9 mg/dL (8.4-10.2); Carbon Dioxide 23 mmol/L (22-30); Chloride 100 mmol/L (98-107); Estimated CRCL calculation 131 ml/min; Estimated Glomerular Filt Rate > 60; Glucose 167 mg/dL (65-110); Phosphorus 4.1 mg/dL (2.5-4.5); Sodium 133 mmol/L (137-145)
--- NOTE | 2021-04-19 09:17 | WPDGIPROGNO ---
Progress Note: A&P Assessment and Plan (1) Nausea and vomiting: Code(s): R11.2 - Nausea with vomiting, unspecified Status: Acute Assessment and Plan: these symptoms have resolved. I believe that his marijuana use probably does contribute to his presenting symptoms. (2) Blood in stool: Code(s): K92.1 - Melena Status: Acute Assessment and Plan: I told that at this point I do not think he needs to have a colonoscopy, but he should call if he sees any further bleeding. Subjective Date/time seen: 04/19/21 09:17 he feels good today. I told that his H pylori was negative. He did have a bowel movement last evening and there was no blood seen Review of Systems Review of Systems: All systems reviewed & are unremarkable except as noted in HPI and below Exam Const: General: alert Orientation/consciousness: patient oriented x3 Resp: Auscultation: clear to auscultation bilaterally Cardio: Rhythm: regular rhythm GI: GI Palp: Yes Soft to palpation and No Tenderness to palpation present (GI) Neuro: General: patient oriented x3 Objective Data Vital Signs Vital Signs: Vital Signs - 24 hr 04/18/21 12:00 04/18/21 13:06 04/18/21 13:53 Temperature 36.2 C L Pulse Rate 88 85 102 H Respiratory Rate 18 24 H Blood Pressure 137/92 H 138/71 128/64 Pulse Oximetry 100 97 04/18/21 14:00 04/18/21 14:03 04/18/21 14:13 Temperature 37.1 C Pulse Rate 72 86 94 Respiratory Rate 16 21 H 23 H Blood Pressure 118/79 118/78 119/80 Pulse Oximetry 100 98 98 04/18/21 20:00 04/18/21 21:52 04/19/21 05:49 Temperature 37.6 C H 36.8 C Pulse Rate 85 85 69 Respiratory Rate 18 18 18 Blood Pressure 132/75 126/77 Pulse Oximetry 99 99 100 Intake/Output Intake/Output: Intake & Output 04/16/21 04/17/21 04/18/21 04/19/21 23:59 23:59 23:59 23:59 Intake Total 3320 2570 1510 590 Output Total 1500 Balance 3320 1070 1510 590 Meds/Results Medications: Active Medications Generic Name Dose Route Start Last Admin Trade Name Freq PRN Reason Stop Dose Admin Dextrose 12.5 gm 04/13/21 21:13 Dextrose 50% 25 Gm/50 Ml Syringe IV PUSH PRN PRN Hypoglycemia Protocol Diphenhydramine HCl 25 mg 04/14/21 18:56 04/15/21 12:58 Diphenhydramine Hcl Cap 25 Mg Capsule PO 25 mg Q6H PRN Administration nausea and vomiting Famotidine 20 mg 04/13/21 21:00 04/18/21 21:07 Famotidine 20 Mg/2 Ml Vial IV PUSH 20 mg Q12HR JANNA Administration Glucagon 1 mg 04/13/21 21:13 Glucagon For Inj 1 Mg Vial IM PRN PRN Hypoglycemia Protocol Glucose 15 gm 04/13/21 21:13 Glucose Oral Gel 15 Gm Of Glucse In 37.5 Gm Tube PO PRN PRN Hypoglycemia Protocol Dextrose 1,000 mls @ 100 mls/hr 04/13/21 21:13 Dextrose 5% 1,000 Ml IVPB PRN PRN Hypoglycemia Protocol Insulin Aspart 2 - 5 units 04/17/21 17:00 04/18/21 16:48 Insulin Aspart (*Bkc) 100 Units/Ml SUB-Q Not Given TIDWM JANNA Protocol Lorazepam 0.25 mg 04/17/21 15:02 04/18/21 16:35 Lorazepam (*Crx) 0.5 Mg Tablet PO 0.25 mg TID PRN Administration Anxiety Nicotine 1 patch 04/16/21 09:00 04/18/21 08:14 Nicotine (*Pbkc) 21 Mg Patch TRANSDERM 1 patch QAM JANNA Administration Pantoprazole Sodium 40 mg 04/14/21 21:00 04/18/21 21:07 Pantoprazole 40 Mg Tablet PO 40 mg Q12HR JANNA Administration Potassium Chloride 40 meq 04/15/21 09:00 04/18/21 08:17 Potassium Chloride 20 Meq Packet (For Liquid) PO 40 meq DAILY JANNA Administration Radiology Results: ITS Impressions Abdomen/Pelvis CT 04/13/21 17:07 IMPRESSION: 1. No acute abdominal abnormality. No findings to account for patient's symptoms. Labs Labs: Laboratory Results - last 24 hr 04/15/21 04/16/21 04/16/21 09:44 05:59 05:59 WBC RBC Hgb Hct MCV MCH MCHC RDW Plt Count MPV Sodium Potassium Chloride
[2021-04-19] MEDS: LORazepam (*CRX) 0.5 MG TABLET 0.25 MG PO ×2 (10:31→17:39)
[2021-04-19] MEDS: PANTOPRAZOLE 40 MG TABLET PO ×2 (10:32→22:15)
[2021-04-19] MEDS: NICOTINE (*PBKC) 21 MG PATCH 1 PATCH TRANSDERM (10:32)
[2021-04-19] MEDS: FAMOTIDINE 20 MG/2 ML VIAL IV PUSH ×2 (10:32→22:15)
[2021-04-19 11:57] LABS: Glucose Point of Care 160 mg/dl (65-105)
[2021-04-19 12:27] LABS: Lactic Acid Reflex 2.6 mmol/L (0.7-2.1)
--- NOTE | 2021-04-19 13:19 | PM.IMPN ---
Progress Note: A&P Assessment and Plan (1) Volume depletion: Code(s): E86.9 - Volume depletion, unspecified Status: Acute Assessment and Plan: Presented to ED with complaints of persistent nausea vomiting and weakness since last Saturday with several days of vomiting and poor oral intake Urine toxicology screen is positive for opiates (denies use) and cannabinoid Hypertensive on admission, now stable Initial chemistry revealed profound electrolyte disturbances, improved with IVF Monitor (2) Hypokalemia: Code(s): E87.6 - Hypokalemia Status: Acute Assessment and Plan: Resolved K+ 4.3-->4.7-->5 today Multifactorial, Likely 2/2 above and cannabinoid ingestion Patient was counseled to quit using marijuana Monitor (3) Hyponatremia: Code(s): E87.1 - Hypo-osmolality and hyponatremia Status: Acute Assessment and Plan: Initially with mild improvement of serum sodium from 120 to 122 Then improved from 120 to 129 within 24 hours IV normal saline and salt tablets were stopped Nephrology following, recommendations appreciated Continue D5 S/P DDAVP x2 doses per Renal recommendation Na+ 129-->130-->131-->133 today Monitor closely (4) Hypochloremia: Code(s): E87.8 - Other disorders of electrolyte and fluid balance, not elsewhere classified Status: Acute Assessment and Plan: Resolved S/p IV fluid resuscitation Nephrology following, recommendations appreciated (5) Metabolic alkalosis: Code(s): E87.3 - Alkalosis Status: Chronic Assessment and Plan: Treatment as above (6) Prolonged QT interval: Code(s): R94.31 - Abnormal electrocardiogram [ECG] [EKG] Status: Acute Assessment and Plan: Last ECG showed SR, nonspecific ST elevation on 04/15 (7) Gastroesophageal reflux disease: Code(s): K21.9 - Gastro-esophageal reflux disease without esophagitis Status: Acute Assessment and Plan: Continue PPI Tums as needed for indigestion (8) Type 2 diabetes mellitus with hyperglycemia: Code(s): E11.65 - Type 2 diabetes mellitus with hyperglycemia Status: Acute Assessment and Plan: A1c 6.1 C-peptide 1.43 TSH was normal Random cortisol was low at 15 ?cosyntropin stimulation test per Nephrology recommendation, no results Accuchecks, SSI Monitor (9) Tobacco dependence: Code(s): F17.200 - Nicotine dependence, unspecified, uncomplicated Status: Acute Assessment and Plan: Counseled NicoDerm available if needed (10) Nausea and vomiting: Code(s): R11.2 - Nausea with vomiting, unspecified Status: Acute Assessment and Plan: Continue Zofran p.r.n Patient counseled to stop cannabinoid which appears to be the culprit GI consulted EGD today-->reflux esophagitis, biopsies taken (11) Blood in stool: Code(s): K92.1 - Melena Status: Acute Assessment and Plan: Reported small amount of bright red blood in the stool, no previous occurrences GI consulted Stool occult ordered Digital rectal exam per GI-->no masses and blood Lovenox d/c'd (12) Elevated WBC count: Code(s): D72.829 - Elevated white blood cell count, unspecified Status: Acute Assessment and Plan: No obvious signs of infection No recent sick contacts, no know COVID exposure Check BC, CBCD Check D-dimer, PCT, CRP, LDH, PT/INR, ferritin (13) Thrombocytosis: Code(s): D75.839 - Thrombocytosis, unspecified Status: Acute Assessment and Plan: Etiology unclear ?reactive, ?infection Will check CBCD, ferritin Repeat labs, f/u with PCP Additional Plan Discharge pending recovery Subjective Date/time seen: 04/19/21 13:19 Interval history: 04/17 Pt seen this a.m.; labs, vs, diagnostic results, consult notes reviewed; pt noted with anxiety last evening; no new complaints; still feels weak 04/18 Pt seen this a.m.; pt reported blood in his sto
[2021-04-19 13:40] LABS: Basophils Absolute Auto 0.1 K/mm3 (0.0-0.1); Basophils Percent Auto 0.3 % (0.2-1.2); Eosinophils Absolute Auto 0.3 K/mm3 (0-0.3); Eosinophils Percent Auto 1.5 % (0-4.4); Hematocrit 38.6 % (42.0-52.0); Hemoglobin 13.9 g/dL (14.0-18.0); Immature Granulocyte Absolute 0.27 K/mm3 (0.00-0.031); Immature Granulocyte Percent A 1.5 % (0-0.5); Lymphocytes Absolute Auto 2.49 K/mm3 (0.9-3.2); Lymphocytes Percent Auto 13.5 % (18.3-44.2); Mean Corpuscular Hemoglobin 32.9 pg (26-34); Mean Corpuscular Volume 91.5 fl (80-100); Mean Platelet Volume 8.7 fl (7.4-10.4); Monocytes Absolute Auto 0.9 K/mm3 (0.1-0.6); Monocytes Percent Auto 4.8 % (2.6-8.5); Neutrophils Absolute Auto 14.4 K/mm3 (1.3-6.7); Neutrophils Percent Auto 78.4 % (45.5-73.1); Platelet Count Result 497 k/mm3 (150-375); Red Blood Count 4.22 M/mm3 (4.6-6.20); Red Cell Distribution Width 12.7 % (11.5-14.5); White Blood Count 18.4 K/mm3 (4.5-10.0)
[2021-04-19 13:47] LABS: Alanine Aminotransferase 40 U/L (4-50); Albumin Level 4.5 g/dL (3.5-5.1); Alkaline Phosphatase 70 U/L (38-126); Anion Gap 13 mmol/L (8-16); Aspartate Amino Transferase 29 U/L (17-59); Bilirubin,Total 0.2 mg/dL (0.2-1.3); Blood Urea Nitrogen 14 mg/dL (9-20); CRP < 0.5 mg/dL (<1.0); Carbon Dioxide 19 mmol/L (22-30); Chloride 99 mmol/L (98-107); Estimated CRCL calculation 131 ml/min; Estimated Glomerular Filt Rate > 60; Glucose 156 mg/dL (65-110); Lactate Dehydrogenase 452 U/L (313-618); Potassium 4.7 mmol/L (3.4-5.0); Sodium 131 mmol/L (137-145)
[2021-04-19 13:48] LABS: D Dimer 0.28 ug/mL (<0.48)
[2021-04-19 15:08] LABS: Reflex Lactic Acid Yes or No Add Lactic
[2021-04-19 15:38] LABS: Lactic Acid 2.2 mmol/L (0.7-2.1)
[2021-04-19 17:07] LABS: Glucose Point of Care 130 mg/dl (65-105)
[2021-04-19 17:23] LABS: Add Urine Microscopic? YES; Amorphous Sediment Urine Few; Appearance Urine Cloudy (Clear); Bacteria Urine Trace /hpf; Bilirubin Urine Negative (Negative); Blood Urine Negative (Negative); Color Urine Yellow (Yellow); Glucose Urine UA 2+ mg/dL (Negative); Ketones Urine Negative (Negative); Leukocyte Esterase Ur Negative LEU/UL (Negative); Mucus Urine Rare /lpf; Nitrate Urine Negative (Negative); Protein Urine Negative (Negative); Specific Grav Ur 1.021 (1.001-1.035); Urobilinogen Urine Negative mg/dL (<2.0); WBC Urine 0-3 /hpf
--- NOTE | 2021-04-19 20:54 | PM.PNNEP ---
Progress Note: A&P Assessment and Plan (1) Hyponatremia: Code(s): E87.1 - Hypo-osmolality and hyponatremia Status: Acute Assessment and Plan: Hyponatremia. TSH okay, and cortisol repeat is fine. SPEP negative. Serum osmolality was calculated. Urine osmolality is high. Urine sodium not extremely low. Hyponatremia due to pre renal azotemia. He is also on pantoprazole which could do this. But with the GI bleed we cannot stop this. 11/10/20 Na 132 04/13 Na 120 04/14 Na 120 04/15 Na 129 given d52 and ddavp 04/16 Na 122 then 130 then 133. given d5w and then 127 04/17 Na 129. on 2000cc fluids and given ddavp 1mcg. then 127 04/18 Na 131 04/19 Na 133 then 131. enhance fluid restriction to 1000cc. (2) Hypokalemia: Code(s): E87.6 - Hypokalemia Status: Acute Assessment and Plan: presumably due to GI loss and diminished oral intake phos okay (3) Metabolic alkalosis: Code(s): E87.3 - Alkalosis Status: Chronic Assessment and Plan: resolved (4) Nausea and vomiting: Code(s): R11.2 - Nausea with vomiting, unspecified Status: Acute Assessment and Plan: This is improved. Now GI bleeding. GI involved Subjective Date/time seen: 04/19/21 20:54 Interval history: Jose L feels okay. No more bloody stools. He slept pretty well. No chest pain or shortness of breath. Exam Narrative: GENERAL APPEARANCE: well developed well nourished male in no acute distress HEENT: normocephalic, CARDIOVASCULAR: RRR, normal S1 and S2, no rub or gallop RESPIRATORY: clear ABDOMEN: soft, nontender, nondistended, positive bowel sounds present EXTREMITIES: no edema Objective Data Vital Signs Vital Signs: Vital Signs - 24 hr 04/18/21 21:52 04/19/21 05:49 04/19/21 08:00 Temperature 37.6 C H 36.8 C Pulse Rate 85 69 Respiratory Rate 18 18 Blood Pressure 132/75 126/77 124/77 Pulse Oximetry 99 100 04/19/21 14:00 04/19/21 14:17 Temperature 36.9 C Pulse Rate 83 Respiratory Rate 16 Blood Pressure 124/77 118/82 Pulse Oximetry 99 Intake/Output Intake/Output: Intake & Output 04/16/21 04/17/21 04/18/21 04/19/21 23:59 23:59 23:59 23:59 Intake Total 3320 2570 1510 2190 Output Total 1500 750 Balance 3320 1070 1510 1440 Meds/Results Medications: Active Medications Generic Name Dose Route Start Last Admin Trade Name Freq PRN Reason Stop Dose Admin Acetaminophen 650 mg 04/19/21 20:10 Acetaminophen 325 Mg Tablet PO Q6H PRN Mild Pain (1-3) or Fever Dextrose 12.5 gm 04/13/21 21:13 Dextrose 50% 25 Gm/50 Ml Syringe IV PUSH PRN PRN Hypoglycemia Protocol Diphenhydramine HCl 25 mg 04/14/21 18:56 04/15/21 12:58 Diphenhydramine Hcl Cap 25 Mg Capsule PO 25 mg Q6H PRN Administration nausea and vomiting Famotidine 20 mg 04/13/21 21:00 04/19/21 10:32 Famotidine 20 Mg/2 Ml Vial IV PUSH 20 mg Q12HR JANNA Administration Glucagon 1 mg 04/13/21 21:13 Glucagon For Inj 1 Mg Vial IM PRN PRN Hypoglycemia Protocol Glucose 15 gm 04/13/21 21:13 Glucose Oral Gel 15 Gm Of Glucse In 37.5 Gm Tube PO PRN PRN Hypoglycemia Protocol Dextrose 1,000 mls @ 100 mls/hr 04/13/21 21:13 Dextrose 5% 1,000 Ml IVPB PRN PRN Hypoglycemia Protocol Insulin Aspart 2 - 5 units 04/17/21 17:00 04/19/21 19:58 Insulin Aspart (*Bkc) 100 Units/Ml SUB-Q Not Given TIDWM JANNA Protocol Lorazepam 0.25 mg 04/17/21 15:02 04/19/21 17:39 Lorazepam (*Crx) 0.5 Mg Tablet PO 0.25 mg TID PRN Administration Anxiety Nicotine 1 patch 04/16/21 09:00 04/19/21 10:32 Nicotine (*Pbkc) 21 Mg Patch TRANSDERM 1 patch QAM JANNA Administration Pantoprazole Sodium 40 mg 04/14/21 21:00 04/19/21 10:32 Pantoprazole 40 Mg Tablet PO 40 mg Q12HR JANNA Administration Potassium Chloride 40 meq 04/15/21 09:0
[2021-04-19 22:36] LABS: Glucose Point of Care 135 mg/dl (65-105)
[2021-04-19] MEDS: diphenhydrAMINE HCl CAP 25 MG CAPSULE 50 MG PO (23:20)
[2021-04-20 04:32] VITALS: BP 118/81; PULSE 65; RESP 18; TEMP 36.5; O2SAT 100
[2021-04-20 07:46] LABS: Hematocrit 40.6 % (42.0-52.0); Hemoglobin 14.1 g/dL (14.0-18.0); Mean Corpuscular HGB Conc 34.7 g/dl (32-36); Mean Corpuscular Hemoglobin 32.3 pg (26-34); Mean Corpuscular Volume 92.9 fl (80-100); Mean Platelet Volume 8.7 fl (7.4-10.4); Platelet Count Result 483 k/mm3 (150-375); Red Blood Count 4.37 M/mm3 (4.6-6.20); Red Cell Distribution Width 12.6 % (11.5-14.5); White Blood Count 12.3 K/mm3 (4.5-10.0)
[2021-04-20 08:00] VITALS: BP 122/76; PULSE 76; RESP 18; TEMP 37.1; O2SAT 100
[2021-04-20 08:05] VITALS: BP 126/88; PULSE 84; RESP 18; TEMP 37.1; O2SAT 100
[2021-04-20 08:10] VITALS: BP 122/80; PULSE 76; RESP 18; TEMP 37.1; O2SAT 100
[2021-04-20 08:15] VITALS: BP 134/90; PULSE 100; RESP 19; TEMP 37.1; O2SAT 99
[2021-04-20 08:26] LABS: Albumin Level 4.3 g/dL (3.5-5.1); Anion Gap 8 mmol/L (8-16); Blood Urea Nitrogen 15 mg/dL (9-20); Calcium 9.7 mg/dL (8.4-10.2); Carbon Dioxide 25 mmol/L (22-30); Chloride 100 mmol/L (98-107); Estimated CRCL calculation 107 ml/min; Estimated Glomerular Filt Rate > 60; Glucose 149 mg/dL (65-110); Phosphorus 4.1 mg/dL (2.5-4.5); Potassium 4.6 mmol/L (3.4-5.0); Sodium 133 mmol/L (137-145)
[2021-04-20] MEDS: LORazepam (*CRX) 0.5 MG TABLET 0.25 MG PO (10:07)
[2021-04-20] MEDS: FAMOTIDINE 20 MG/2 ML VIAL IV PUSH (10:07)
[2021-04-20] MEDS: NICOTINE (*PBKC) 21 MG PATCH 1 PATCH TRANSDERM (10:07)
[2021-04-20] MEDS: PANTOPRAZOLE 40 MG TABLET PO (10:08)
[2021-04-20] MEDS: POTASSIUM CHLORIDE 20 MEQ PACKET (FOR LIQUID) 40 MEQ PO (10:08)
--- NOTE | 2021-04-20 12:25 | PM.PNNEP ---
Progress Note: A&P Assessment and Plan (1) Hyponatremia: Code(s): E87.1 - Hypo-osmolality and hyponatremia Status: Acute Assessment and Plan: Hyponatremia. TSH okay, and cortisol repeat is fine. SPEP negative. Serum osmolality was = to calculated. Urine osmolality is high. Urine sodium not extremely low. chest x-ray okay. Abdominal pelvic CT okay. Will check CT of the head. Hyponatremia due to pre renal azotemia. He is also on pantoprazole which could do this. But with the GI bleed we cannot stop this. Etiology of the hyponatremia is unclear. Possibly the pantoprazole. Check a head CT to be sure there is nothing going on there. But no neurologic symptoms. 11/10/20 Na 132 04/13 Na 120 04/14 Na 120 04/15 Na 129 given d52 and ddavp 04/16 Na 122 then 130 then 133. given d5w and then 127 04/17 Na 129. on 2000cc fluids and given ddavp 1mcg. then 127 04/18 Na 131 04/19 Na 133 then 131. 04/20 Na 133 keep fluid restriction at 1000cc (2) Hypokalemia: Code(s): E87.6 - Hypokalemia Status: Acute Assessment and Plan: presumably due to GI loss and diminished oral intake phos okay (3) Metabolic alkalosis: Code(s): E87.3 - Alkalosis Status: Chronic Assessment and Plan: resolved (4) Nausea and vomiting: Code(s): R11.2 - Nausea with vomiting, unspecified Status: Acute Assessment and Plan: This is improved. Now GI bleeding. GI involved Subjective Date/time seen: 04/20/21 12:25 Interval history: Jose L feels okay. No more bloody stools. A little belly pain. Not much. Exam Narrative: GENERAL APPEARANCE: well developed well nourished male in no acute distress HEENT: normocephalic, CARDIOVASCULAR: RRR, normal S1 and S2, no rub or gallop RESPIRATORY: clear bilaterally ABDOMEN: soft, nontender, nondistended, positive bowel sounds present EXTREMITIES: no edema or cyanosis Objective Data Vital Signs Vital Signs: Vital Signs - 24 hr 04/19/21 14:00 04/19/21 14:17 04/19/21 20:00 Temperature 36.9 C Pulse Rate 83 77 Respiratory Rate 16 18 Blood Pressure 124/77 118/82 Pulse Oximetry 99 99 04/19/21 21:25 04/19/21 21:31 04/19/21 21:32 Temperature 37.4 C 37.4 C 37.4 C Pulse Rate 77 87 104 H Respiratory Rate 18 20 Blood Pressure 126/79 128/92 H 131/92 H Pulse Oximetry 99 100 100 04/19/21 21:35 04/20/21 04:32 04/20/21 08:00 Temperature 37.4 C 36.5 C 37.1 C Pulse Rate 77 65 76 Respiratory Rate 18 18 18 Blood Pressure 126/79 118/81 122/76 Pulse Oximetry 99 100 100 04/20/21 08:05 04/20/21 08:10 04/20/21 08:15 Temperature 37.1 C 37.1 C 37.1 C Pulse Rate 84 76 100 Respiratory Rate 18 18 19 Blood Pressure 126/88 122/80 134/90 Pulse Oximetry 100 100 99 Intake/Output Intake/Output: Intake & Output 04/17/21 04/18/21 04/19/21 04/20/21 23:59 23:59 23:59 23:59 Intake Total 2570 1510 2190 120 Output Total 1500 750 200 Balance 1070 1510 1440 -80 Meds/Results Medications: Active Medications Generic Name Dose Route Start Last Admin Trade Name Freq PRN Reason Stop Dose Admin Acetaminophen 650 mg 04/19/21 20:10 Acetaminophen 325 Mg Tablet PO Q6H PRN Mild Pain (1-3) or Fever Dextrose 12.5 gm 04/13/21 21:13 Dextrose 50% 25 Gm/50 Ml Syringe IV PUSH PRN PRN Hypoglycemia Protocol Diphenhydramine HCl 50 mg 04/19/21 22:25 04/19/21 23:20 Diphenhydramine Hcl Cap 25 Mg Capsule PO 50 mg Q6H PRN Administration Nausea And Vomiting Famotidine 20 mg 04/13/21 21:00 04/20/21 10:07 Famotidine 20 Mg/2 Ml Vial IV PUSH 20 mg Q12HR JANNA Administration Glucagon 1 mg 04/13/21 21:13 Glucagon For Inj 1 Mg Vial IM PRN PRN Hypoglycemia Protocol Glucose 15 gm 04/13/21 21:13 Glucose Oral Gel 15 Gm Of Glucse In 37.5 Gm Tube PO PRN PRN Hypoglycemia Protocol Dextrose 1,000 mls @ 100 m
[2021-04-20 14:00] VITALS: BP 117/70; PULSE 102; RESP 19; TEMP 36.5; O2SAT 100
--- NOTE | 2021-04-20 14:31 | PM.DS ---
DS: Admitting Diagnosis Discharge Date 04/20/2021 Admitting Diagnosis Dehydration DS: Discharge Diagnosis Discharge Diagnosis (1) Volume depletion: Code(s): E86.9 - Volume depletion, unspecified Status: Acute Assessment and Plan: Presented to ED with complaints of persistent nausea vomiting and weakness since last Saturday with several days of vomiting and poor oral intake Urine toxicology screen is positive for opiates (denies use) and cannabinoid Hypertensive on admission, now stable Initial chemistry revealed profound electrolyte disturbances, improved with IVF (2) Hypokalemia: Code(s): E87.6 - Hypokalemia Status: Acute Assessment and Plan: Resolved K+ 4.3-->4.7-->5-->4.6 today Multifactorial, Likely 2/2 above and cannabinoid ingestion Patient was counseled to quit using marijuana Monitor (3) Hyponatremia: Code(s): E87.1 - Hypo-osmolality and hyponatremia Status: Acute Assessment and Plan: Initially with mild improvement of serum sodium from 120 to 122 Then improved from 120 to 129 within 24 hours IV normal saline and salt tablets were stopped Nephrology following, recommendations appreciated Continue D5 S/P DDAVP x2 doses per Renal recommendation Na+ 129-->130-->131-->133 today Monitor closely (4) Hypochloremia: Code(s): E87.8 - Other disorders of electrolyte and fluid balance, not elsewhere classified Status: Acute Assessment and Plan: Resolved S/p IV fluid resuscitation Nephrology following, recommendations appreciated (5) Metabolic alkalosis: Code(s): E87.3 - Alkalosis Status: Chronic Assessment and Plan: Treatment as above (6) Prolonged QT interval: Code(s): R94.31 - Abnormal electrocardiogram [ECG] [EKG] Status: Acute Assessment and Plan: Last ECG showed SR, nonspecific ST elevation on 04/15 (7) Gastroesophageal reflux disease: Code(s): K21.9 - Gastro-esophageal reflux disease without esophagitis Status: Acute Assessment and Plan: PPI Tums as needed for indigestion (8) Type 2 diabetes mellitus with hyperglycemia: Code(s): E11.65 - Type 2 diabetes mellitus with hyperglycemia Status: Acute Assessment and Plan: A1c 6.1 C-peptide 1.43 TSH was normal Random cortisol was low at 15 ?cosyntropin stimulation test per Nephrology recommendation, no results Accuchecks, SSI Monitor (9) Tobacco dependence: Code(s): F17.200 - Nicotine dependence, unspecified, uncomplicated Status: Acute Assessment and Plan: Counseled NicoDerm available if needed (10) Nausea and vomiting: Code(s): R11.2 - Nausea with vomiting, unspecified Status: Acute Assessment and Plan: Continue Zofran p.r.n Patient counseled to stop cannabinoid which appears to be the culprit GI consulted EGD today-->reflux esophagitis, biopsies taken (11) Blood in stool: Code(s): K92.1 - Melena Status: Acute Assessment and Plan: Reported small amount of bright red blood in the stool, no previous occurrences GI consulted Stool occult ordered Digital rectal exam per GI-->no masses and blood Lovenox d/c'd (12) Elevated WBC count: Code(s): D72.829 - Elevated white blood cell count, unspecified Status: Acute Assessment and Plan: Trending down No obvious signs of infection No recent sick contacts, no know COVID exposure Check BC, CBCD D-dimer, PCT, CRP, LDH, PT/INR, ferritin wnl (13) Thrombocytosis: Code(s): D75.839 - Thrombocytosis, unspecified Status: Acute Assessment and Plan: Etiology unclear ?reactive, no obvious signs of infection Repeat CBCD Repeat labs, f/u with PCP DS: Summary Hospital Course Hospital Course: 26-year-old male smoker with history of GERD, diabetes, asthma, depression, and anxiety who presented to the emergency department earlier today from home for evaluation of nause
[2021-04-20 15:15] LABS: Creatinine, Random Urine 27 mg/dL (20-320); Total Protein/Creatinine Ratio 185 mg/g creat (22-128)
[2021-04-20 16:18] LABS: Glucose Point of Care 156 mg/dl (65-105)
[2021-04-20 16:18] LABS: Glucose Point of Care 138 mg/dl (65-105)
== END 2021-04-20 15:21 | disposition home or self-care (01) | DRG 641 ==
LOC: ANHED 16:37 → ANHIMU 17:21 → ANH3MEDSUR 04-14 20:46
PROVIDERS: Emergency Medicine; Internal Medicine; Internal Medicine Gastroenterology; Internal Medicine Nephrology; Physician Assistant; Admitting Provider Internal Medicine; Emergency Provider Emergency Medicine; PCP Nurse Practitioner Family; Visit Provider Nurse Practitioner Adult Health
PROC: 0DJ08ZZ Inspection of Upper Intestinal Tract, Via Natural or Artificial Opening Endoscopic (ICD-10-PCS; CPT 43235; principal; 2021-04-18 13:45)
DX: E86.9 Volume depletion, unspecified (principal); K92.1 Melena; E87.1 Hypo-osmolality and hyponatremia; E87.3 Alkalosis; E87.6 Hypokalemia; E87.8 Other disorders of electrolyte and fluid balance, not elsewhere classified; R94.31 Abnormal electrocardiogram [ECG] [EKG]; R11.2 Nausea with vomiting, unspecified; K21.00 Gastro-esophageal reflux disease with esophagitis, without bleeding; E11.65 Type 2 diabetes mellitus with hyperglycemia; F17.210 Nicotine dependence, cigarettes, uncomplicated; J45.909 Unspecified asthma, uncomplicated; F32.A Depression, unspecified; F41.9 Anxiety disorder, unspecified; R10.9 Unspecified abdominal pain; R82.5 Elevated urine levels of drugs, medicaments and biological substances; D72.829 Elevated white blood cell count, unspecified; D75.839 Thrombocytosis, unspecified; Z28.21 Immunization not carried out because of patient refusal
CPT/HCPCS: 36415; 36600; 70450; 71046; 74177; 80048; 80053; 80069; 80307; 81001; 81050; 82310; 82436; 82533; 82570; 82728; 82805; 82948; 83036; 83605; 83615; 83690; 83735; 83883; 83930; 83935; 84100; 84105; 84133; 84145; 84155; 84156; 84165; 84166; 84295; 84300; 84439; 84443; 84480; 84681; 85014; 85018; 85025; 85027; 85380; 85610; 86140; 87040; 87081; 87086; 87088; 88305; 93005; 96361; 96365; 96366; 96374; 96375; 96376; 99285; A9270; G0378; J1650; J1815; J2597; J2704; J3480; J7030; J7060; J7070; J7120; Q9967

== ENCOUNTER 2021-11-26 04:49 | Observation (INO) | payer OTHER, SELFPAY ==
[2021-11-26] VITALS (17 sets, daily range): BP systolic 122–153; BP diastolic 66–95; PULSE 65–94; RESP 13–20; TEMP 36.2–37.2; O2SAT 94–98; BMI 26.3
--- NOTE | 2021-11-26 04:56 | ED.NAVMDI ---
HPI - Nausea/Vomiting/Diarrhea General Chief complaint: Nausea/Vomiting/Diarrhea Stated complaint: vomiting diabetic Time Seen by Provider: 11/26/21 04:52 Source: patient History of Present Illness HPI Narrative: Patient presents with nausea vomiting and diarrhea. Patient also reports diffuse abdominal pain that is crampy, constant, no clear aggravating or alleviating factors, radiates across his entire abdomen. Reports he had similar symptoms on time ago and does not member his diagnosis but does remember having low sodium and low potassium he was admitted here at [facility] and felt improved and went home. Denies any fevers at home denies any sick contacts denies any recent travel outside the area denies any recent antibiotics. Does report some blood-tinged emesis has been unable to keep anything down for the past couple days he came to the ER for further evaluation. Related Data Allergies Allergy/AdvReac Type Severity Reaction Status Date / Time No Known Allergies Allergy Verified 11/26/21 04:54 Review of Systems Review of Systems: CONSTITUTIONAL: Denies fever, chills, or sweats. EYES: Denies visual changes, redness, or discharge. ENT: Denies rhinorrhea, congestion, sore throat, or otalgia. CARDIOVASCULAR: Denies chest pain, palpitations, or edema. RESPIRATORY: Denies cough or dyspnea. GASTROINTESTINAL: Abdominal pain with nausea vomiting diarrhea GENITOURINARY: Denies dysuria or hematuria. SKIN: Denies rash or itching. MUSCULOSKELETAL: Denies back pain, joint pain, or myalgia. NEUROLOGIC: Denies headache, numbness, dizziness, or weakness. PSYCHIATRIC: Denies anxiety or depression. All systems reviewed & are unremarkable except as noted in HPI and below PMFSH Past Medical History Medical History Anxiety Asthma Depression Gastroesophageal reflux disease Tobacco dependence Type 2 diabetes mellitus Surgical History Surgical History No history of previous surgery Family History Family History Mother Thyroid disease Social History Social History Social History: Surrogate decision maker: Tobi Whitlock, father. Code status: Full code. Smoking packs per day: 1 Smoking cigarettes per day: 20.0 Years smoked: 8 Smoking pack-years: 8.00 Smoking status: Current every day smoker Tobacco type: cigarettes Second hand tobacco smoke exposure: Yes Alcohol intake: former Substance use type: marijuana Additional living arrangements comments: Resides in [place]. Additional occupation/education comments: Works for an [employer]. Exam Narrative: GENERAL: Well-appearing, well-nourished, and in no acute distress. HEAD: Normocephalic, atraumatic. EYES: PERRLA and EOMI. ENT: Nares clear, no rhinorrhea or epistaxis. Mucous membranes moist. NECK: Supple. No masses. No JVD CHEST: Clear to auscultation. No respiratory distress. No wheezes rales or rhonchi HEART: Regular rate and rhythm. No murmur heard. Normal peripheral pulses. ABDOMEN: Mild diffuse abdominal pain with deep palpation soft, nondistended. EXTREMITIES: Normal range of motion. No edema. SKIN: Warm, dry, no rash. NEURO: No focal deficits. Alert and oriented x3. PSYCH: Normal mood and affect. Course Consultations Consultation #1: Case cussed with hospitalist team who will admit for further management. Date: 11/26/21 Time: 06:41 Vital Signs Vital signs: Vital Signs Temperature 36.3 C L 11/26/21 04:49 Pulse Rate 94 11/26/21 04:49 Respiratory Rate 18 11/26/21 04:49 Blood Pressure 141/95 H 11/26/21 04:49 Pulse Oximetry 94 11/26/21 04:49 Oxygen Delivery Room Air 11/26/21 04:49 Temperature 36.3 C L 11/26/21 04:49 Pulse Rate 78 11/26/21 07:02 Respiratory Rate 18 11/26/21 07:02 Blood Pre
[2021-11-26] MEDS: SODIUM CHLORIDE 0.9% IV 1,000 ML 999 ML IV CONT ×3 (04:58→07:00)
[2021-11-26] MEDS: ONDANSETRON INJ 4 MG/2 ML VIAL IV PUSH (04:58)
[2021-11-26 05:01] LABS: Glucose Point of Care 275 mg/dl (65-105)
[2021-11-26 05:03] LABS: Basophils Percent Auto 0.2 % (0.2-1.2); Eosinophils Absolute Auto 0.1 K/mm3 (0-0.3); Eosinophils Percent Auto 0.5 % (0-4.4); Hematocrit 52.1 % (42.0-52.0); Hemoglobin 18.9 g/dL (14.0-18.0); Immature Granulocyte Absolute 0.07 K/mm3 (0.00-0.031); Immature Granulocyte Percent A 0.5 % (0-0.5); Lymphocytes Absolute Auto 2.33 K/mm3 (0.9-3.2); Lymphocytes Percent Auto 17.4 % (18.3-44.2); Mean Corpuscular HGB Conc 36.3 g/dl (32-36); Mean Corpuscular Hemoglobin 31.1 pg (26-34); Mean Corpuscular Volume 85.8 fl (80-100); Mean Platelet Volume 8.9 fl (7.4-10.4); Monocytes Absolute Auto 1.4 K/mm3 (0.1-0.6); Monocytes Percent Auto 10.5 % (2.6-8.5); Neutrophils Absolute Auto 9.5 K/mm3 (1.3-6.7); Neutrophils Percent Auto 70.9 % (45.5-73.1); Platelet Count Result 518 k/mm3 (150-375); Red Blood Count 6.07 M/mm3 (4.6-6.20); Red Cell Distribution Width 11.5 % (11.5-14.5); White Blood Count 13.4 K/mm3 (4.5-10.0)
[2021-11-26 05:21] LABS: Alanine Aminotransferase 30 U/L (6-50); Albumin Level 5.1 g/dL (3.5-5.1); Alkaline Phosphatase 94 U/L (38-126); Aspartate Amino Transferase 39 U/L (17-59); Bilirubin,Total 1.9 mg/dL (0.2-1.3); Blood Urea Nitrogen 47 mg/dL (9-20); Calcium 8.8 mg/dL (8.4-10.2); Carbon Dioxide > 40 mmol/L (22-30); Chloride 61 mmol/L (98-107); Estimated CRCL calculation 99 ml/min; Estimated Glomerular Filt Rate > 60; Glucose 247 mg/dL (65-110); Lipase 49 U/L (23-300); Potassium 2.6 mmol/L (3.4-5.0); Sodium 121 mmol/L (137-145)
--- NOTE | 2021-11-26 05:30 | ECG_ITS ---
Measurements Intervals Gleason Rate: 78 P: 34 TN: 120 QRS: 41 QRSD: 89 T: -11 QT: 437 QTc: 498 Interpretive Statements SINUS RHYTHM WITH MARKED SINUS ARRHYTHMIA ST-T WAVE ABNORMALITY IN ANTEROLAT/INF LEADS- CONSIDER ISCHEMIA BASELINE ARTIFACT- I, AVL ABNORMAL ECG Electronically Signed On 11-26-2021 21:19:45 CDT by Mehrdad Rosenthal D.O.
[2021-11-26 05:39] LABS: Alveolar/Arterial O2 Gradient 23.3 mmHg; Base Excess ABG 16.8 mEq/l (+/-2.0); Fractional Inspired Oxygen 21 %; Oxygen Content ABG 22.8 %vol (16.0-22.0); Oxygen Saturation ABG 95.5 % (95.0-100.0); Oxyhemoglobin 91.8 % THb (90.0-100.0); PCO2 ABG 48.4 mmHg (35.0-45.0); PO2 ABG 68.5 mmHg (80.0-100.0); PO2 FiO2 Ratio Arterial Blood 3.26 %; Total Hemoglobin 17.7 g/dL (12.0-18.0)
[2021-11-26 05:41] LABS: Device ROOM AIR; Modified Allen's Test Pass; Site Drawn RIGHT RADIAL; pH ABG 7.556 (7.350-7.450)
[2021-11-26] MEDS: POTASSIUM CHLORIDE INJ 40 MEQ in SODIUM CHLORIDE 0.9% IV 500 ML 130 MEQ IVPB (05:47)
[2021-11-26] MEDS: PANTOPRAZOLE SODIUM IV 40 MG VIAL 80 MG IV PUSH (07:01)
--- NOTE | 2021-11-26 07:20 | PC.NURSE ---
Patient report received from BARBARA Mullins. All questions answered and care of patient assumed.
[2021-11-26 07:26] LABS: Magnesium 2.6 mg/dL (1.6-2.3); Phosphorus 3.4 mg/dL (2.5-4.5)
--- NOTE | 2021-11-26 07:30 | PC.NURSE ---
This RN spoke with Dr. Kirk regarding the postassium infusion orders. Per verbal order patient is to complete infusion of 40meq in NS and then begin the 20meq in 1/2 NS after.
--- NOTE | 2021-11-26 07:33 | PC.NURSE ---
Patient resting quietly in stretcher with call-light in reach. Awaiting bed assignment.
[2021-11-26 08:17] LABS: Appearance Urine Clear (Clear); Bilirubin Urine Negative (Negative); Blood Urine Negative (Negative); Color Urine Yellow (Yellow); Glucose Urine UA Trace mg/dL (Negative); Ketones Urine 2+ mg/dL (Negative); Leukocyte Esterase Ur Negative LEU/UL (Negative); Nitrate Urine Negative (Negative); Protein Urine 1+ mg/dL (Negative); Specific Grav Ur 1.015 (1.001-1.035); Urobilinogen Urine 0.2 mg/dL (<2.0); pH Urine 8.5 (5.0-9.0)
[2021-11-26 08:26] LABS: Add Urine Microscopic? YES
[2021-11-26 08:33] LABS: RBC Urine 0-2 /hpf (0-2); Squamous Epithelial Cell Urine Rare /hpf (Few); WBC Urine 0-3 /hpf
[2021-11-26 08:34] LABS: Amphetamine Screen Urine Negative (Negative); Barbiturate Screen Urine Negative (Negative); Benzodiazepines Screen Urine Negative (Negative); Cannabinoid Screen Urine Positive (Negative); Cocaine Screen Urine Negative (Negative); Methadone Screen Urine Negative (Negative); Opiate Screen Urine Negative (Negative); Phencyclidine Screen Urine Negative (Negative)
[2021-11-26 09:02] LABS: Blood Urea Nitrogen 33 mg/dL (9-20); Calcium 7.1 mg/dL (8.4-10.2); Carbon Dioxide > 40 mmol/L (22-30); Chloride 83 mmol/L (98-107); Estimated CRCL calculation 99 ml/min; Estimated Glomerular Filt Rate > 60; Glucose 151 mg/dL (65-110); Potassium 2.7 mmol/L (3.4-5.0); Sodium 126 mmol/L (137-145)
--- NOTE | 2021-11-26 09:05 | ADMGEN ---
This patient, Jose L Enriquez, was admitted to 2 Medical Room 254-01. Patient/family oriented to hospital policies and general routines including ID bracelet, bed and alarms, visiting hours, pain management, procedures, bathroom and other care routines, personal items, smoking policy, room service/diet, and visiting hours. Information on how to activate the Rapid Response Team has been discussed. Patient/Family are encouraged to report perceived risks to care and to ask questions if they do not understand what they are told or what they should do.
[2021-11-26 09:23] LABS: Glucose Point of Care 153 mg/dl (65-105)
[2021-11-26 11:26] LABS: Glucose Point of Care 179 mg/dl (65-105)
[2021-11-26] MEDS: KCL 20 MEQ/D5/0.45% SOD CHL 1,000 ML 150 ML IV CONT (11:54)
--- NOTE | 2021-11-26 13:14 | PM.IMHP ---
H&P: HPI History of Present Illness Date/Time: 11/26/21 13:14 Chief Complaint: Patient presents with nausea vomiting and diarrhea.? Patient also reports diffuse abdominal pain that is crampy, constant, no clear aggravating or alleviating factors, radiates across his entire abdomen.? Reports he had similar symptoms on time ago and does not member his diagnosis but does remember having low sodium and low potassium he was admitted here at [facility] and felt improved and went home.? Denies any fevers at home denies any sick contacts denies any recent travel outside the area denies any recent antibiotics.? Does report some blood-tinged emesis has been unable to keep anything down for the past couple days he came to the ER for further evaluation. by the time I had seen the patient, he had reported that he had no loose stools and no diarrhea. Patient also reported to me that this started on Saturday after he ate some line choice. Review of Systems Review of Systems: 10 point ROS negative except as stated in HPI / Subjective PMFSH Past Medical History Medical History Anxiety Asthma Depression Gastroesophageal reflux disease Tobacco dependence Type 2 diabetes mellitus Surgical History Surgical History No history of previous surgery Family History Family History Mother Thyroid disease Social History Social History Social History: Surrogate decision maker: Tobi Whitlock, father. Code status: Full code. Smoking packs per day: 1 Smoking cigarettes per day: 20.0 Years smoked: 8 Smoking pack-years: 8.00 Smoking status: Current every day smoker Second hand tobacco smoke exposure: Yes Alcohol intake: former Substance use: current Substance use type: marijuana Last use: 11/21/21 Additional living arrangements comments: Resides in [place]. Additional occupation/education comments: Works for an [employer]. Spiritual care concerns: No Meds Home Medications and Allergies Home Medications Medication Instructions Recorded Confirmed Type famotidine 20 mg tablet (Pepcid) 20 mg PO DAILY #14 tabs 11/10/20 04/14/21 Rx Allergies Allergy/AdvReac Type Severity Reaction Status Date / Time No Known Allergies Allergy Verified 11/26/21 10:01 Vital Signs Vital Signs - 24 hr 11/26/21 04:49 11/26/21 05:47 11/26/21 07:02 Temperature 97.4 F L Pulse Rate 94 81 78 Respiratory Rate 18 14 18 Blood Pressure 141/95 H 130/86 139/81 Pulse Oximetry 94 94 98 Oxygen Delivery Room Air 11/26/21 07:30 11/26/21 07:40 11/26/21 07:45 Temperature Pulse Rate 78 75 79 Respiratory Rate 13 Blood Pressure 139/81 Pulse Oximetry 97 96 98 Oxygen Delivery 11/26/21 08:00 11/26/21 10:16 11/26/21 10:40 Temperature 98.9 F Pulse Rate 82 70 Respiratory Rate 20 20 Blood Pressure 153/66 H Pulse Oximetry 98 98 Oxygen Delivery Room Air 11/26/21 12:01 Temperature Pulse Rate 70 Respiratory Rate Blood Pressure Pulse Oximetry Oxygen Delivery H&P: Results Labs Labs: Short CBC 11/26/21 Range/Units 04:55 WBC 13.4 H (4.5-10.0) K/mm3 Hgb 18.9 H D (14.0-18.0) g/dL Hct 52.1 H (42.0-52.0) % Plt Count 518 H (150-375) k/mm3 BMP 11/26/21 11/26/21 04:55 08:44 Sodium 121 L 126 L Potassium 2.6 L* 2.7 L* Chloride 61 L 83 L Carbon Dioxide > 40 H > 40 H BUN 47 H D 33 H D Creatinine 0.90 0.90 Glucose 247 H 151 H Calcium 8.8 7.1 L Liver Function 11/26/21 Range/Units 04:55 Total Bilirubin 1.9 H (0.2-1.3) mg/dL AST 39 (17-59) U/L ALT 30 (6-50) U/L Alkaline Phosphatase 94 (38-126) U/L Albumin 5.1 (3.5-5.1) g/dL Urine 11/26/21 Range/Units 08:09 Urine Color Yellow (Yellow) Uri
[2021-11-26 16:33] LABS: Glucose Point of Care 186 mg/dl (65-105)
[2021-11-26] MEDS: SODIUM CHLORIDE 0.9% IV 1,000 ML 75 ML IV CONT (18:51)
[2021-11-27] VITALS: PULSE 66
[2021-11-27 04:00] VITALS: BP 171/91; PULSE 65; PULSE 79; RESP 18; TEMP 37.1; O2SAT 100
[2021-11-27 04:16] VITALS: BP 115/60
[2021-11-27] MEDS: ONDANSETRON INJ 4 MG/2 ML VIAL IV PUSH (06:22)
[2021-11-27 06:23] LABS: Hematocrit 42.9 % (42.0-52.0); Hemoglobin 15.3 g/dL (14.0-18.0); Mean Corpuscular HGB Conc 35.7 g/dl (32-36); Mean Corpuscular Hemoglobin 31.4 pg (26-34); Mean Corpuscular Volume 88.1 fl (80-100); Platelet Count Result 370 k/mm3 (150-375); Red Blood Count 4.87 M/mm3 (4.6-6.20); Red Cell Distribution Width 11.4 % (11.5-14.5); White Blood Count 11.3 K/mm3 (4.5-10.0)
[2021-11-27 08:00] VITALS: PULSE 68
[2021-11-27 08:03] LABS: Glucose Point of Care 153 mg/dl (65-105)
[2021-11-27 08:08] LABS: Anion Gap 3 mmol/L (8-16); Blood Urea Nitrogen 16 mg/dL (9-20); Calcium 8.6 mg/dL (8.4-10.2); Carbon Dioxide 35 mmol/L (22-30); Chloride 91 mmol/L (98-107); Estimated CRCL calculation 144 ml/min; Estimated Glomerular Filt Rate > 60; Glucose 141 mg/dL (65-110); Potassium 3.1 mmol/L (3.4-5.0); Sodium 129 mmol/L (137-145)
[2021-11-27] MEDS: SODIUM CHLORIDE 0.9% IV 1,000 ML 75 ML IV CONT (08:14)
[2021-11-27 08:42] VITALS: O2SAT 97
[2021-11-27] MEDS: POTASSIUM CHLORIDE 20 MEQ PACKET (FOR LIQUID) 40 MEQ PO (09:25)
[2021-11-27 10:16] VITALS: BP 136/82; PULSE 66; RESP 18; TEMP 36.9; O2SAT 96
--- NOTE | 2021-11-27 11:24 | PM.IMPN ---
Progress Note: A&P Assessment and Plan (1) Hypokalemia: Code(s): E87.6 - Hypokalemia Status: Acute Assessment and Plan: secondary dehydration, monitor and replace as needed (2) Hyponatremia: Code(s): E87.1 - Hypo-osmolality and hyponatremia Status: Acute Assessment and Plan: Secondary to the hydration. Monitor. improving (3) Nausea & vomiting: Qualifiers: Vomiting type: unspecified Qualified Code(s): R11.2 - Nausea with vomiting, unspecified Code(s): R11.2 - Nausea with vomiting, unspecified Status: Acute Assessment and Plan: No episode since she has pain in the hospital. Question food poisoning. P.r.n. medications in IV fluids. feeling somewhat better. Ate about half this breakfast. Plan Likely discharge in 1-2 days Subjective Date/time seen: 11/27/21 11:24 No diarrhea. No emesis is since early yesterday. Feeling a little bit better. Still pretty weak Exam Narrative: General: alert and oriented Psych: appropriate mood nad affect Eyes: PERRLA Neck: Trachea midline, no new lesions Skin: no changes Lungs: CTA Cardiac: Normal S1,S2, no MGR ABD: soft, nd, nt, nbs Ext: no new lesions, no cce Vasc: Pulses intact Objective Data Vital Signs Vital Signs: Vital Signs - 24 hr 11/26/21 12:01 11/26/21 14:00 11/26/21 16:03 Temperature 98.2 F Pulse Rate 70 67 67 Respiratory Rate 20 Blood Pressure 136/81 Pulse Oximetry 94 Oxygen Delivery 11/26/21 16:00 11/26/21 19:34 11/26/21 22:27 Temperature 97.2 F L 98.6 F Pulse Rate 70 70 Respiratory Rate 20 16 Blood Pressure 139/78 141/77 H Pulse Oximetry 98 94 95 Oxygen Delivery Room Air 11/26/21 23:58 11/27/21 04:00 11/27/21 04:16 Temperature 98.8 F 98.8 F Pulse Rate 65 79 Respiratory Rate 18 18 Blood Pressure 122/71 171/91 H 115/60 Pulse Oximetry 97 100 Oxygen Delivery 11/26/21 20:00 11/27/21 00:00 11/27/21 04:00 Temperature Pulse Rate 70 66 65 Respiratory Rate Blood Pressure Pulse Oximetry Oxygen Delivery 11/27/21 08:00 11/27/21 08:42 11/27/21 10:16 Temperature 98.5 F Pulse Rate 68 66 Respiratory Rate 18 Blood Pressure 136/82 Pulse Oximetry 97 96 Oxygen Delivery Room Air Intake/Output Intake/Output: Intake & Output 11/24/21 11/25/21 11/26/21 11/27/21 23:59 23:59 23:59 23:59 Intake Total 5140 1520 Balance 5140 1520 Meds/Results Medications: Active Medications Generic Name Dose Route Start Last Admin Trade Name Freq PRN Reason Stop Dose Admin Sodium Chloride 1,000 mls @ 75 mls/hr 11/26/21 15:00 11/27/21 08:14 Normal Saline Iv IV CONT 75 mls/hr .[id number] JANNA Administration Ondansetron HCl 4 mg 11/26/21 06:49 11/27/21 06:22 Ondansetron Inj 4 Mg/2 Ml Vial IV PUSH 4 mg Q4H PRN Administration Nausea And Vomiting Labs Labs: Laboratory Results - last 24 hr 11/26/21 11/26/21 11/27/21 11:21 16:23 05:52 WBC 11.3 H RBC 4.87 Hgb 15.3 D Hct 42.9 MCV 88.1 MCH 31.4 MCHC 35.7 RDW 11.4 L Plt Count 370 MPV 9.0 Sodium Potassium Chloride Carbon Dioxide Anion Gap BUN Creatinine Estim Creat Clear Calc Estimated GFR Glucose POC Capillary Glucose 179 H 186 H Calcium 11/27/21 11/27/21 07:22 08:01 WBC RBC Hgb Hct MCV MCH MCHC RDW Plt Count MPV Sodium 129 L Potassium 3.1 L Chloride 91 L Carbon Dioxide 35 H Anion Gap 3 L BUN 16 D Creatinine 0.60 L Estim Creat Clear Calc 144 Estimated GFR > 60 Glucose 141 H POC Capillary Glucose 153 H Calcium 8.6
[2021-11-27 12:06] LABS: Glucose Point of Care 131 mg/dl (65-105)
--- NOTE | 2021-12-05 14:23 | PM.DS ---
DS: Admitting Diagnosis Discharge Date 11/28/21 Admitting Diagnosis Nausea vomiting DS: Discharge Diagnosis Discharge Diagnosis (1) Hypokalemia: Code(s): E87.6 - Hypokalemia Status: Acute Assessment and Plan: secondary dehydration, monitor and replace as needed (2) Hyponatremia: Code(s): E87.1 - Hypo-osmolality and hyponatremia Status: Acute Assessment and Plan: Secondary to the hydration. Monitor. improving (3) Nausea & vomiting: Qualifiers: Vomiting type: unspecified Qualified Code(s): R11.2 - Nausea with vomiting, unspecified Code(s): R11.2 - Nausea with vomiting, unspecified Status: Acute Assessment and Plan: No episode since she has pain in the hospital. Question food poisoning. P.r.n. medications in IV fluids. feeling somewhat better. Ate about half this breakfast. Plan Likely discharge in 1-2 days DS: Summary Hospital Course Hospital Course: Below are listed discharge diagnoses and treatment plans. To note patient left on November 28, 2021 against medical advice. I did not evaluate the patient. Time Spent with Patient Time attestation: Total time spent providing and/or coordinating discharge services: Discharge Plan Discharge Consulting providers: Karl Hoffmann ; Kristofer Flannery ; Mehrdad Rosenthal Patient Disposition: Left Against Medical Advice Discharge Medications: No Action No Home Medications Date of admission: 11/26/21 06:47 Primary Care Provider: PHYSICIAN,LICENSING OFFICER Admitting Provider: Fanta Coreas Attending physician on admission: Fanta Coreas Condition: Stable
== END 2021-11-27 14:48 | disposition left against medical advice (07) ==
LOC: ANHED 06:47 → ANH2MED 08:19
PROVIDERS: Chiropractor; Admitting Provider Internal Medicine; Emergency Provider Emergency Medicine; Visit Provider Internal Medicine
DX: E87.6 Hypokalemia (principal); E87.1 Hypo-osmolality and hyponatremia; E87.8 Other disorders of electrolyte and fluid balance, not elsewhere classified; R79.89 Other specified abnormal findings of blood chemistry; R11.2 Nausea with vomiting, unspecified; R19.7 Diarrhea, unspecified; E11.9 Type 2 diabetes mellitus without complications; J45.909 Unspecified asthma, uncomplicated; F41.9 Anxiety disorder, unspecified; F32.A Depression, unspecified; F17.210 Nicotine dependence, cigarettes, uncomplicated; F12.90 Cannabis use, unspecified, uncomplicated; Z79.899 Other long term (current) drug therapy
CPT/HCPCS: 36415; 36600; 80048; 80053; 80307; 81001; 82805; 82948; 83690; 83735; 84100; 85025; 85027; 93005; 96361; 96365; 96366; 96374; 96375; 99285; A9270; C9113; G0378; J2405; J3480; J7030; J7040

== ENCOUNTER 2021-11-29 13:15 | Emergency (ER) | payer OTHER, SELFPAY ==
[2021-11-29] VITALS (17 sets, daily range): BP systolic 103–136; BP diastolic 58–90; PULSE 74–101; RESP 14–25; TEMP 37; O2SAT 96–100
--- NOTE | 2021-11-29 13:50 | ECG_ITS ---
Measurements Intervals [place] Rate: 74 P: 32 [place]: 142 QRS: 3 QRSD: 90 T: -1 QT: 435 QTc: 483 Interpretive Statements SINUS RHYTHM BORDERLINE T WAVE ABNORMALITY- INFERIOR LEADS BORDERLINE ECG Electronically Signed On 11-29-2021 19:44:44 CDT by Mehrdad Rosenthal D.O.
--- NOTE | 2021-11-29 14:14 | ED.GENADULT ---
HPI - General Adult General Chief complaint: Recheck/Abnormal Lab/Rx Stated complaint: weakness - recently discharged from hospital Time Seen by Provider: 11/29/21 13:27 Source: patient, RN notes reviewed and old records reviewed Mode of arrival: ambulatory Limitations: no limitations History of Present Illness HPI narrative: This is a 26 year old male who presents for evaluation of weakness. Patient presented to ER on 11/26/21 for weakness with vomiting and diarrhea. He was found to have dehydration with hypokalemia and hyponatremia. Patient states he was admitted to hospital but he left AMA on Saturday after admission. HE states he has continued to have weakness since he left. He states today he got up to go to the bathroom and he became dizzy. He states he fell onto the ground but he was able to get up. He denies hitting his head or LOC. He denies having vomiting and diarrhea since leaving. Onset (ago): day(s) Related Data Home Medications Medication Instructions Recorded Confirmed No Home Medications 11/29/21 11/29/21 Allergies Allergy/AdvReac Type Severity Reaction Status Date / Time No Known Allergies Allergy Verified 11/29/21 13:36 Review of Systems Review of Systems: All systems reviewed & are unremarkable except as noted in HPI and below Constitutional: Constitutional: Denies chills, Reports fatigue and Denies fever(s) Cardiovascular: Cardiovascular: Denies chest pain Respiratory: Respiratory: Denies chest congestion and Denies cough Gastrointestinal: Gastrointestinal: Denies abdominal pain, Denies bloating and Reports nausea Neurologic: Denies focal weakness, Denies numbness and Reports weakness PMFSH Past Medical History Medical History Anxiety Asthma Depression Gastroesophageal reflux disease Tobacco dependence Type 2 diabetes mellitus Surgical History Surgical History No history of previous surgery Family History Family History (Updated 11/26/21 @ 18:56 by Emily Lopez RN) Mother Graves disease Avi thyroiditis, fibrous variant Thyroid disease Rheumatoid arthritis Social History Social History (Updated 11/29/21 @ 14:19 by Zahida Thomas MD) Social History: Surrogate decision maker: Tobi Whitlock, father. Code status: Full code. Smoking packs per day: 1 Smoking cigarettes per day: 20.0 Years smoked: 8 Smoking pack-years: 8.00 Smoking status: Current every day smoker Second hand tobacco smoke exposure: Yes Alcohol intake: former Substance use: current Substance use type: marijuana and heroin Other substance usage details: he states he has not used heroin in 6 months Last use: 11/21/21 Additional living arrangements comments: Resides in [place]. Additional occupation/education comments: Works for an [employer]. Spiritual care concerns: No Exam Narrative: GENERAL: Well-appearing, well-nourished, and in no acute distress. HEAD: Normocephalic, atraumatic EYES: PERRLA and EOMI, conjunctiva clear without discharge EARS: TM's clear bilaterally without erythema or dullness THROAT:Mucous membranes moist, Oropharynx normal without erythema, exudate, peritonsillar swelling or fluctuance NECK: Supple, without lymphadenopathy or mass RESPIRATORY: No respiratory distress, Airway patent, Respirations non-labored, Clear to auscultation without rales, rhonchi or wheeze HEART: Regular rate and rhythm. No murmur heard. Normal peripheral pulses. ABDOMEN: Soft, nontender, nondistended, normal active bowel sounds. No masses. No rebound or guarding, No organomegaly. EXTREMITIES: No edema, normal strength with full range of motion. SKIN: Warm, dry, normal color without rash NEURO: Alert and oriented x3. CN 2-12 grossly intact. No focal deficits. PSYCH: Normal mood and affect. Course Reevaluation(s) Reevaluation #1: I Reviewed andrew
[2021-11-29] MEDS: SODIUM CHLORIDE 0.9% IV 1,000 ML 999 ML IV CONT (14:15)
[2021-11-29 14:31] LABS: Basophils Absolute Auto 0.1 K/mm3 (0.0-0.1); Basophils Percent Auto 0.4 % (0.2-1.2); Eosinophils Absolute Auto 0.4 K/mm3 (0-0.3); Hematocrit 42.1 % (42.0-52.0); Hemoglobin 14.9 g/dL (14.0-18.0); Immature Granulocyte Absolute 0.07 K/mm3 (0.00-0.031); Immature Granulocyte Percent A 0.6 % (0-0.5); Lymphocytes Percent Auto 27.3 % (18.3-44.2); Mean Corpuscular HGB Conc 35.4 g/dl (32-36); Mean Corpuscular Hemoglobin 31.4 pg (26-34); Mean Corpuscular Volume 88.8 fl (80-100); Mean Platelet Volume 9.1 fl (7.4-10.4); Monocytes Absolute Auto 0.9 K/mm3 (0.1-0.6); Monocytes Percent Auto 7.2 % (2.6-8.5); Neutrophils Absolute Auto 7.7 K/mm3 (1.3-6.7); Neutrophils Percent Auto 61.5 % (45.5-73.1); Platelet Count Result 416 k/mm3 (150-375); Red Blood Count 4.74 M/mm3 (4.6-6.20); Red Cell Distribution Width 11.6 % (11.5-14.5); White Blood Count 12.5 K/mm3 (4.5-10.0)
[2021-11-29 14:41] LABS: Alanine Aminotransferase 28 U/L (6-50); Albumin Level 4.5 g/dL (3.5-5.1); Alkaline Phosphatase 65 U/L (38-126); Anion Gap 6 mmol/L (8-16); Aspartate Amino Transferase 29 U/L (17-59); Bilirubin,Total 0.6 mg/dL (0.2-1.3); Blood Urea Nitrogen 14 mg/dL (9-20); Carbon Dioxide 31 mmol/L (22-30); Chloride 98 mmol/L (98-107); Estimated CRCL calculation 121 ml/min; Estimated Glomerular Filt Rate > 60; Glucose 172 mg/dL (65-110); Magnesium 2.2 mg/dL (1.6-2.3); Potassium 3.1 mmol/L (3.4-5.0); Sodium 135 mmol/L (137-145)
[2021-11-29 14:44] LABS: INR 1.1; Prothrombin Time 13.5 Seconds (11.1-14.7)
[2021-11-29 14:45] LABS: Partial Thromboplastin Time 23.8 SECONDS (22.3-36.8)
[2021-11-29 15:17] LABS: Appearance Urine Clear (Clear); Bilirubin Urine Negative (Negative); Blood Urine Negative (Negative); Color Urine Yellow (Yellow); Glucose Urine UA 2+ mg/dL (Negative); Ketones Urine Trace mg/dL (Negative); Leukocyte Esterase Ur Negative LEU/UL (Negative); Nitrate Urine Negative (Negative); Protein Urine Negative (Negative); pH Urine 7.5 (5.0-9.0)
[2021-11-29] MEDS: POTASSIUM CHLORIDE 20 MEQ TABLET 40 MEQ PO (15:20)
[2021-11-29 15:23] LABS: Mucus Urine Rare /lpf; RBC Urine 0-2 /hpf (0-2); WBC Urine 0-3 /hpf
[2021-11-29 15:24] LABS: Add Urine Microscopic? YES
[2021-11-29 16:24] LABS: Barbiturate Screen Urine Negative (Negative); Benzodiazepines Screen Urine Negative (Negative)
[2021-11-29 16:32] LABS: Amphetamine Screen Urine Negative (Negative); Cannabinoid Screen Urine Positive (Negative); Cocaine Screen Urine Negative (Negative); Methadone Screen Urine Negative (Negative); Opiate Screen Urine Negative (Negative); Phencyclidine Screen Urine Negative (Negative)
== END 2021-11-29 17:58 | disposition home or self-care (01) ==
PROVIDERS: Emergency Provider General Practice
DX: E87.6 Hypokalemia (principal); E11.9 Type 2 diabetes mellitus without complications; F17.210 Nicotine dependence, cigarettes, uncomplicated
CPT/HCPCS: 36415; 80053; 80307; 81001; 83735; 85025; 85610; 85730; 93005; 96360; 99283; A9270; J7030

== ENCOUNTER 2024-07-07 17:36 | Emergency (ER) | payer SELFPAY ==
[2024-07-07 17:45] VITALS: BP 133/70; PULSE 66; RESP 16; TEMP 36.7; O2SAT 100
--- NOTE | 2024-07-07 18:28 | ED.MALEGU ---
HPI - Male Genitourinary General Chief complaint: Urogenital-Male Stated complaint: STD/Nausea Time Seen by Provider: 07/07/24 18:41 Source: patient, RN notes reviewed and old records reviewed Mode of arrival: ambulatory Limitations: no limitations History of Present Illness HPI Narrative: Patient presents with complaints of nausea throughout the day today, improving as the day goes on. He is also concerned because his girlfriend was diagnosed with chlamydia at her most recent Dr. Visit. Patient denies any symptoms of chlamydia up but is requesting testing and treatment given the circumstances. He is also requesting work note, as he called into work today due to his nausea Related Data Allergies Allergy/AdvReac Type Severity Reaction Status Date / Time No Known Allergies Allergy Verified 07/07/24 17:40 Review of Systems Review of Systems: All systems reviewed & are unremarkable except as noted in HPI and below Constitutional: Constitutional: Reports no additional constitutional complaints ENT: Reports system reviewed and no additional complaints, except as documented Cardiovascular: Cardiovascular: Reports no additional cardiovascular complaints Respiratory: Respiratory: Reports no additional respiratory complaints Gastrointestinal: Gastrointestinal: Reports no additional gastrointestinal complaints and Reports nausea Genitourinary: Genitourinary: Reports other (Reports positive chlamydia exposure) [facility] Past Medical History Medical History Tobacco dependence Asthma Gastroesophageal reflux disease Type 2 diabetes mellitus Anxiety Depression Surgical History Surgical History No history of previous surgery Family History Family History Mother Graves disease Avi thyroiditis, fibrous variant Thyroid disease Rheumatoid arthritis Social History Social History Social History: Surrogate decision maker: Tobi Whitlock, father. Code status: Full code. Smoking packs per day: 1 Smoking cigarettes per day: 20.0 Years smoked: 8 Smoking pack-years: 8.00 Smoking status: Current every day smoker Second hand tobacco smoke exposure: Yes Alcohol intake: former Substance use: current Substance use type: marijuana and heroin Other substance usage details: he states he has not used heroin in 6 months Last use: 11/21/21 Additional living arrangements comments: Resides in [place]. Additional occupation/education comments: Works for an [employer]. Spiritual care concerns: No Comments At the time of my signature, I reviewed and agree with the nursing past medical, surgical, social, and family history. There is no relevant family history pertinent to the patient complaint. Exam Const: General: cooperative, no acute distress, alert and awake Orientation/consciousness: oriented to person, oriented to place and oriented to time HENMT: Head: normal to inspection Resp: Effort & Inspection: normal respiratory effort and able to speak in complete sentences Auscultation: clear to auscultation bilaterally, no crackles, no rales, no rhonchi and no wheezes Cardio: Palpation: normal PMI Rate: regular rate Rhythm: regular rhythm Heart sounds: S1 normal heart sound present and S2 normal heart sound present GI: GI Palp: Yes Soft to palpation, No Tenderness to palpation present (GI) and No Guarding due to palpation present (GI) Auscultation: normal bowel sounds Neuro: General: oriented to person, oriented to place and oriented to time Cranial nerves: Yes CN's II-XII intact bilaterally Psych: Appearance: grossly normal Thought process: Normal thought process present Insight: Good insight present (Psych) Judgement: Good judgement present (Psych) Course Course Level of Care: Express Care Visit Vital Signs Vital signs: Vital Signs Temperature 98.0 F 07/07/24 17:45 Pulse Rate 66 07/07/24 17:45 Respiratory Rate 16 07/07/24 17:45 Blood Pressure 133/70 07/07/24 17:45 Pulse Oximetry 100 07/07/24 17:45 Oxygen Delivery Room Air 07/07/24 17:45 Temperature 98.0 F 07/07/24 17:45 Pulse Rate 66 07/07/24 17:45 Respiratory Rate 16 07/07/24 17:45 Blood Pressure 133/70 07/07/24 17:45 Pulse Oximetry 100 07/07/24 17:45 Oxygen Delivery Room Air 07/07/24 17:45 Reviewed MDM - Male Genitourinary MDM Narrative Medical decision making narrative: Negative COVID, negative flu. Urine sent for cultures. Treat presumptively for chlamydia given positive contact. Zofran for nausea. Discharge instructions reviewed with patient, as well as provided in writing per nursing staff. The instructions also include specific and strict return/GO TO THE ER as well as f/u information. All questions have been answered, and the patient deny any further questions with discharge and discharge plan. Some parts of this dictation were generated by voice recognition software and may contain typographical and/or grammatical inaccuracies. Lab Data Labs: Lab Results 07/07/24 Range/Units 18:48 POC Influenza A Ag Negative (Negative) POC Influenza B Ag Negative (Negative) POC SARS CoV-2 Ag Negative (Negative) Discharge Plan Discharge Clinical Impression: Nausea, Chlamydia contact Patient Disposition: Home, Self-Care Condition: Stable Instructions: Antibiotic Form, Chlamydia (ED) Additional Instructions: Take medications as prescribed. Follow with primary care provider. Emergency department for any new or worse symptoms Patient Language: Albanian Prescriptions: New ondansetron 4 mg tablet,disintegrating 4 mg PO Q8H PRN (Reason: nausea and vomiting) Qty: 14 0RF doxycycline hyclate 100 mg capsule 100 mg PO BID Qty: 14 0RF ondansetron 4 mg tablet,disintegrating 4 mg PO Q8H PRN (Reason: nausea and vomiting) Qty: 14 0RF doxycycline hyclate 100 mg capsule 100 mg PO BID Qty: 14 0RF Follow-up/Referrals: PHYSICIAN,EXTRACTIVE METALLURGIST [Primary Care Provider] - Stand Alone Forms: Work/School Release IP
[2024-07-07 19:07] LABS: EDCOVIDSCREEN Negative (Negative); EDINFLUASCREEN Negative (Negative); EDINFLUBSCREEN Negative (Negative)
[2024-07-08 21:27] LABS: Trichomonas Vag PCR NOT DETECTED (NOT DETECTE)
[2024-07-08 21:49] LABS: Chlamydia trachomatis NOT DETECTED (NOT DETECTE); Neisseria gonorrhoeae PCR NOT DETECTED (NOT DETECTE)
== END 2024-07-07 19:07 | disposition home or self-care (01) ==
PROVIDERS: Emergency Provider Nurse Practitioner Family
DX: R11.0 Nausea (principal); Z20.2 Contact with and (suspected) exposure to infections with a predominantly sexual mode of transmission; Z20.822 Contact with and (suspected) exposure to COVID-19; F17.210 Nicotine dependence, cigarettes, uncomplicated; J45.909 Unspecified asthma, uncomplicated; K21.9 Gastro-esophageal reflux disease without esophagitis; E11.9 Type 2 diabetes mellitus without complications
CPT/HCPCS: 87426; 87491; 87591; 87661; 87804; 99213; G0463

== ENCOUNTER 2024-07-30 19:35 | Emergency (ER) | payer BC, SELFPAY ==
--- NOTE | 2024-07-30 19:39 | ED_ITS ---
HPI - Nausea/Vomiting/Diarrhea General Chief complaint: Nausea/Vomiting/Diarrhea Stated complaint: Diarrhea/Vomiting Time Seen by Provider: 07/30/24 19:36 Source: patient Mode of arrival: ambulatory Limitations: no limitations History of Present Illness HPI Narrative: Jose L is a 21-year-old male patient presenting to the clinic today with complaints of body aches, nausea, vomiting, and diarrhea x2 days. He reports no known fever. States he has vomited numerous times over the past 24 hours however he has not vomited since this morning. Last diarrhea episode was last night after taking some Imodium. He is starting to feel little bit better but has started a new job and is needing/requesting a work note. He denies any chest pain or shortness of breath. Related Data Allergies Allergy/AdvReac Type Severity Reaction Status Date / Time No Known Allergies Allergy Verified 07/30/24 19:37 Review of Systems Review of Systems: Pertinent positives per HPI. Patient denies any fever, chills, rash, headache, visual changes, dizziness, cough, runny nose, sore throat, shortness of breath, chest pain, palpitations, constipation, abdominal pain, or any urinary issues. [facility] Past Medical History Medical History Tobacco dependence Asthma Gastroesophageal reflux disease Type 2 diabetes mellitus Anxiety Depression Surgical History Surgical History No history of previous surgery Family History Family History Mother Graves disease Avi thyroiditis, fibrous variant Thyroid disease Rheumatoid arthritis Social History Social History Social History: Surrogate decision maker: Tobi Whitlock, father. Code status: Full code. Smoking packs per day: 1 Smoking cigarettes per day: 20.0 Years smoked: 8 Smoking pack-years: 8.00 Smoking status: Current every day smoker Second hand tobacco smoke exposure: Yes Alcohol intake: former Substance use: current Substance use type: marijuana and heroin Other substance usage details: he states he has not used heroin in 6 months Last use: 11/21/21 Additional living arrangements comments: Resides in [place]. Additional occupation/education comments: Works for an [employer]. Spiritual care concerns: No Comments At the time of my signature, I reviewed and agree with the nursing past medical, surgical, social, and family history. There is no relevant family history pertinent to the patient complaint. Exam Narrative: General: Well-developed, well nourished, in no apparent distress. Head: Normocephalic, atraumatic. Cardio: Regular rate and rhythm, s1 and s2 normal, no murmur appreciated. Resp: Clear to auscultation bilaterally, no rhonchi, rales, wheezing or rubs. Abdomen: Soft, pliable, bowel sounds present in all quadrants, non-tender to palpation, no organomegly, no CVAT tenderness. Course Course Emergency Course: Portions of this record may have been created with voice recognition software. Level of Care: Express Care Visit Vital Signs Vital signs: Vital Signs Temperature 37.2 C 07/30/24 19:45 Pulse Rate 111 H 07/30/24 19:45 Respiratory Rate 20 07/30/24 19:45 Blood Pressure 136/83 07/30/24 19:45 Pulse Oximetry 98 07/30/24 19:45 Oxygen Delivery Room Air 07/30/24 19:45 Temperature 37.2 C 07/30/24 19:45 Pulse Rate 111 H 07/30/24 19:45 Respiratory Rate 20 07/30/24 19:45 Blood Pressure 136/83 07/30/24 19:45 Pulse Oximetry 98 07/30/24 19:45 Oxygen Delivery Room Air 07/30/24 19:45 Vital signs reviewed MDM - Nausea/Vomiting/Diarrhea MDM Narrative Medical decision making narrative: At the time of visit patient is resting comfortably on the exam table. Patient appears to be nontoxic. Labs: COVID and influenza testing was negative. Plan: I suspect patient has gastroenteritis. Prescription for Zofran was sent to the pharmacy. Supportive measures were discussed with the patient and they voiced understanding discharge instructions and agrees to treatment plan. Return precautions reviewed Differential Diagnosis Differential diagnosis: Likely traveler's diarrhea, food poisoning, g astroenteritis, clostridium difficile infection, drug-induced nausea and vomiting, dehydration and other Discharge Plan Discharge Clinical Impression: Gastroenteritis Patient Disposition: Home, Self-Care Condition: Stable Instructions: Antibiotic Form, Gastroenteritis (ED) Additional Instructions: COVID and influenza testing was negative in the clinic today. Take prescription medications only as prescribed-Zofran May take Imodium as needed for diarrhea as long as there is no blood in your stool Increase fluids and stay well hydrated Tylenol/motrin for pain/fever Flonase and OTC antihistamines as directed Vicks vapor rub to open sinuses Sinus rinses for congestion Cepacol spray, cough drops, throat lozenges, warm tea with honey/lemon, gargle salt water to soothe throat BRAT diet for diarrhea Clear liquids x 24 hours then advance as tolerated for nausea/vomiting Go to the ED if you develop a worsening in your condition- high fever not controlled by Tylenol or Motrin, dehydration, weakness, lethargy, shortness of breath, or chest pain. Follow up with your PCP in 3-5 days if symptoms persist. Patient Language: Ecuadorean Prescriptions: New ondansetron 4 mg tablet,disintegrating 4 mg PO Q6H PRN (Reason: nausea and vomiting) 3 Days Qty: 12 0RF Follow-up/Referrals: UNKNOWN,DOCTOR [Non-Staff] - Stand Alone Forms: Work/School Release IP Time of Disposition: 19:52 Quality NIHSS Nursing Documentation ED NIHSS nursing documentation: reviewed/agree
[2024-07-30 19:45] VITALS: BP 136/83; PULSE 111; RESP 20; TEMP 37.2; O2SAT 98
[2024-07-30 20:04] LABS: EDCOVIDSCREEN Negative (Negative); EDINFLUASCREEN Negative (Negative); EDINFLUBSCREEN Negative (Negative)
== END 2024-07-30 20:00 | disposition home or self-care (01) ==
PROVIDERS: Emergency Provider Nurse Practitioner Family
DX: K52.9 Noninfective gastroenteritis and colitis, unspecified (principal); E11.9 Type 2 diabetes mellitus without complications; F17.210 Nicotine dependence, cigarettes, uncomplicated; Z20.822 Contact with and (suspected) exposure to COVID-19
CPT/HCPCS: 87426; 87804; 99212; G0463

== ENCOUNTER 2024-07-31 17:17 | Emergency (ER) | payer BC, SELFPAY ==
[2024-07-31] VITALS (9 sets, daily range): BP systolic 85–121; BP diastolic 40–75; PULSE 52–69; RESP 16–20; TEMP 36.5–36.7; O2SAT 98–100
--- NOTE | ~2024-07-31 | CT_ITS ---
CT brain wo con Ordering provider: Debra Glynn PA-C History: 29 years Male with . fall, syncope, [place] . Comparison: April 20, 2021 Technique: CT of the head without contrast. Radiation reduction technique utilized.The dose-length product was 605.33 mGy-cm. FINDINGS: BRAIN PARENCHYMA AND CSF SPACES: No midline shift, mass effect or hemorrhage. The brain parenchyma a nd CSF spaces are otherwise normal. VISUALIZED PARANASAL SINUSES: Well aerated. MASTOIDS: Well aerated. BONES: The bones appear intact. Highly suggestive fracture of the nasal bone. SOFT TISSUES: Visualized nasopharynx is normal. Superficial soft tissues are normal. IMPRESSION: No acute intracranial findings. Highly suggestive left fracture nasal bone. Reviewed, dictated and finalized at location A.
--- NOTE | ~2024-07-31 | CT_ITS ---
CT facial & cervical spine wo Ordering provider: Debra Glynn PA-C History: . fall, hi, abrasions/pain to face . Comparison: None. Technique: CT of the cervical spine was performed without contrast. Sagittal and coronal reformatted images were also obtained and reviewed. Automated exposure control and iterative reconstruction valencia hnique were employed. The dose-length product was 605.33 mGy-cm. FINDINGS: VERTEBRAE: No subluxation or acute fracture. The occipital condyles are intact. DISC SPACES: Normal. PARASPINOUS SOFT TISSUES: Normal. IMPRESSION: No acute osseous abnormality cervical spine. CT facial & cervical spine wo Ordering provider: Debra Glynn PA-C History: . fall, hi, abrasions/pain to face . Comparison: None. Technique: Thin slice axial CT of the facial bones was performed without contrast. Coronal and sagit danielle reformatted images were also obtained. . Automated exposure control and iterative reconstruction technique were employed. The dose-length product was 605.33 mGy-cm. FINDINGS: PARANASAL SINUSES: Well aerated. Prominent 30 minutes with possible cavity. BONES: Left Nasal bone fracture. No other fractures seen. ORBITS AND SUPERFICIAL SOFT TISSUES: The optic globes and orbits are normal. The superficial soft tis sues are normal. VISUALIZED MASTOIDS: Well aerated. LIMITED VISUALIZED BRAIN PARENCHYMA: Normal. IMPRESSION: Left nasal bone fracture. Otherwise, the No facial fracture. Reviewed, dictated and finalized at location A. IMPRESSION: No acute osseous abnormality cervical spine. CT facial & cervical spine wo Ordering provider: Debra N. Gaudreault, PA-C History: . fall, hi, abrasions/pain to face . Comparison: None. Technique: Thin slice axial CT of the facial bones was performed without contra st. Coronal and sagittal reformatted images were also obtained. . Automated e xposure control and iterative reconstruction technique were employed. The dose- length product was 605.33 mGy-cm. FINDINGS: PARANASAL SINUSES: Well aerated. Prominent 30 minutes with possible cavity. BONES: Left Nasal bone fracture. No other fractures seen. ORBITS AND SUPERFICIAL SOFT TISSUES: The optic globes and orbits are normal. Th e superficial soft tissues are normal. VISUALIZED MASTOIDS: Well aerated. LIMITED VISUALIZED BRAIN PARENCHYMA: Normal.
--- NOTE | ~2024-07-31 | XR_ITS ---
CHEST RADIOGRAPH, PA AND LATERAL CLINICAL HISTORY: SYNCOPE . COMPARISON: 04/19/2021 TECHNIQUE: PA and lateral views of the chest. FINDINGS The cardiomediastinal silhouette is unremarkable. The lungs are clear. Visualized osseous structures and soft tissues are unremarkable. IMPRESSION: No focal infiltrate or effusion. Reviewed, dictated and finalized at location A.
--- NOTE | ~2024-07-31 | XR_ITS ---
HISTORY: pain, syncope COMPARISON: None TECHNIQUE: 4 views of the right knee were performed FINDINGS: No acute or subacute fracture, erosion, lytic or sclerotic lesion. Trace medial tibiofemoral joint space narrowing is identified. No suprapatellar joint effusion is identified. The infrapatellar joint space is clear. IMPRESSION: No acute fracture or dislocation. Reviewed, dictated and finalized at location A.
--- NOTE | ~2024-07-31 | XR_ITS ---
HISTORY: pain, syncope COMPARISON: None TECHNIQUE: 4 views of the left knee were performed FINDINGS: No acute or subacute fracture, erosion, lytic or sclerotic lesion. Trace medial tibiofemoral joint space narrowing is identified. No suprapatellar joint effusion is identified. The infrapatellar joint space is clear. IMPRESSION: No acute fracture or dislocation Reviewed, dictated and finalized at location A.
--- NOTE | 2024-07-31 17:25 | ECG_ITS ---
Test Date: 2024-07-31 18:02:30 Measurements Intervals [place] Rate: 59 P: 66 AR: 160 QRS: 55 QRSD: 78 T: 40 QT: 500 QTc: 497 Interpretive Statements SINUS BRADYCARDIA PROLONGED QT INTERVAL Electronically Signed On 08-02-2024 13:52:55 CDT by Jairon Luciano D.O
--- NOTE | 2024-07-31 18:12 | ED_ITS ---
HPI - Fall General Chief Complaint: Fall <MARIA DE JESUS Martínez Last Filed: 07/31/24 23:02> Stated Complaint: FALL. HIT HEAD <MARIA DE JESUS Martínez Last Filed: 07/31/24 23:02> Time Seen by Provider: 07/31/24 17:26 <MARIA DE JESUS Martínez Last Filed: 07/31/24 23:02> Source: patient <MARIA DE JESUS Martínez Last Filed: 07/31/24 23:02> Mode of arrival: EMS <MARIA DE JESUS Martínez Last Filed: 07/31/24 23:02> Limitations: no limitations <MARIA DE JESUS Martínez Last Filed: 07/31/24 23:02> History of Present Illness HPI Narrative: Patient is a 29-year-old male who presents the ED via EMS with report of syncope. Patient reports he has been sick over the last several days with gastroenteritis, nausea, vomiting, diarrhea. Was seen at urgent care yesterday and was prescribed Zofran. Had been doing better. States he was able to eat last night without issue. 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 He attempted to walk out to his car but then had a syncopal episode. He was told he did not lose consciousness for very long. He did hit his head and sustained small abrasions to his forehead and right upper lip. Patient feels somewhat improved currently. He denies lightheadedness currently. Complains of pain to his face, reba knees. Denies epistaxis. Denies neck or back pain. Denies chest or abdominal pain. Tetanus unknown. <MARIA DE JESUS Martínez Last Filed: 07/31/24 23:02> Related Data Allergies/Adverse Reactions: Allergies Allergy/AdvReac Type Severity Reaction Status Date / Time No Known Allergies Allergy Verified 07/30/24 19:37 <MARIA DE JESUS Martínez Last Filed: 07/31/24 23:02> Review of Systems 2 Review of Systems: All systems reviewed & are unremarkable except as noted in HPI. <Debra Glynn PA-C - Last Filed: 07/31/24 23:02> All systems reviewed & are unremarkable except as noted in HPI and below < Debra Glynn PA-C - Last Filed: 07/31/24 23:02> [facility] Past Medical History Medical History: Medical History Tobacco dependence Asthma Gastroesophageal reflux disease Type 2 diabetes mellitus Anxiety Depression <Debra Glynn PA-C - Last Filed: 07/31/24 23:02> Surgical History Surgical History: Surgical History No history of previous surgery <Debra Glynn PA-C - Last Filed: 07/31/24 23:02> Family History Family History: Family History Mother Graves disease Avi thyroiditis, fibrous variant Thyroid disease Rheumatoid arthritis <Debra Glynn PA-C - Last Filed: 07/31/24 23:02> Social History Social History: Social History Social History: Surrogate decision maker: Tobi Whitlock, father. Code status: Full code. Smoking packs per day: 1 Smoking cigarettes per day: 20.0 Years smoked: 8 Smoking pack-years: 8.00 Smoking status: Current every day smoker Second hand tobacco smoke exposure: Yes Alcohol intake: former Substance use: current Substance use type: marijuana and heroin Other substance usage details: he states he has not used heroin in 6 months Last use: 11/21/21 Additional living arrangements comments: Resides in [place]. Additional occupation/education comments: Works for an [employer]. Spiritual care concerns: No <Debra Glynn PA-C - Last Filed: 07/31/24 23:02> Exam 2 Narrative: GENERAL: Well appearing, thin, non-toxic, in no acute distress. HEAD: Normocephalic, abrasions above R eyebrow, R philtrum. No active bleeding EYES: PERRL/EOMI, conjunctiva clear ENT: No trismus or malocclusion, no chipped teeth. MMs dry. No epistaxis. No septal hematoma. Mild swelling over bridge of nose with TTP. NECK: Supple, normal ROM, no midline spinal tenderness RESPIRATORY: Airway patent, respirations nonlabored. Clear to auscultation bilaterally, no rales, rhonchi, wheezing. CARDIOVASCULAR: Regular rate and rhythm without murmurs, rubs, or gallops. MUSCULOSKELETAL: Moves all extremities. No gross deformities. Diffuse tenderness to palpation throughout reba anterior knees. No tenderness throughout midline thoracic or lumbar spine. No palpable bony deformities. SKIN: Warm, dry, normal color. NEURO: A&O X3. Speech clear. Cranial nerves II-XII grossly intact. No ataxic movements. No focal neurologic deficits. PSYCHIATRIC: Appropriate mood and affect. Normal interaction. <MARIA DE JESUS Martínez Last Filed: 07/31/24 23:02> Course PRODUCTION INSPECTOR/PA Physician Supervision Patient's HPI, Exam, and MDM were reviewed and I agreed with the workup and disposition done in the emergency department by the MLP. I was available for consultation, but was not directly involved with patient's care nor did I evaluate the patient. <Jeremy Long MD - Last Filed: 07/31/24 23:03> Vital Signs Vital signs: Vital Signs Temperature 36.5 C 07/31/24 17:23 Pulse Rate 56 L 07/31/24 17:23 Respiratory Rate 16 07/31/24 17:23 Blood Pressure 113/74 07/31/24 17:23 Pulse Oximetry 100 07/31/24 17:23 Oxygen Delivery Room Air 07/31/24 17:23 Temperature 36.7 C 07/31/24 19:42 Pulse Rate 69 07/31/24 20:06 Respiratory Rate 20 07/31/24 19:42 Blood Pressure 94/56 L 07/31/24 20:06 Pulse Oximetry 98 07/31/24 19:42 Oxygen Delivery Room Air 07/31/24 17:23 <Debra Glynn PA-C - Last Filed: 07/31/24 23:02> Vital Signs Temperature 36.5 C 07/31/24 17:23 Pulse Rate 56 L 07/31/24 17:23 Respiratory Rate 16 07/31/24 17:23 Blood Pressure 113/74 07/31/24 17:23 Pulse Oximetry 100 07/31/24 17:23 Oxygen Delivery Room Air 07/31/24 17:23 Temperature 36.7 C 07/31/24 19:42 Pulse Rate 69 07/31/24 20:06 Respiratory Rate 20 07/31/24 19:42 Blood Pressure 94/56 L 07/31/24 20:06 Pulse Oximetry 98 07/31/24 19:42 Oxygen Delivery Room Air 07/31/24 17:23 <Jeremy Long MD - Last Filed: 07/31/24 23:03> MDM - Fall MDM Narrative Medical decision making narrative: Patient presented to ED status post syncopal episode occurred while working today. Was complaining with prodrome of lightheadedness prior to syncopal episode. Reports he has been ill over the last couple of days with gastroenteritis, nausea, vomiting. Did began feeling improved last night. Was able to tolerate p.o. intake last night. Vital signs are stable upon arrival. Patient was notably orthostatic by vital signs. Pressures dropped into the 90 systolic with position changes. Fluids initiated. EKG with sinus bradycardia. Rate 59. Does show prolonged QT of 500, QTC 497. CBC with white blood cell count of 10.6. H&H is stable. CMP with stable electrolytes. Stable kidney function. Magnesium within normal range. Calcium 7.9. Troponin undetectable. Chest x-ray is clear. CT facial bones, cervical spine showing left-sided nasal bone fracture. No other facial bone injuries. No cervical fracture. No septal hematoma seen on exam. CT brain negative. X-ray of bilateral knees negative. Patient was given 2 L of fluid in the ED, in addition to the L given by EMS. Repeat orthostatic vital signs were obtained after fluid administration and slightly improved, but still positive with > 10 point drop in systolic pressure with going from laying to sitting, as well as an increase in HR with sitting to standing. Patient still symptomatic. Will start continuous fluids and discuss with hospitalist for admission. Discussed with Dr. Coreas, hospitalist, accepted patient for admission. Recommended 150cc/hr fluids, repeat labs in the morning. Patient was initially agreeable to being admitted to the hospital. He later called out that he would like to go home instead. He states he is feeling improved and would like to go home with his mother. States he does not feel comfortable being in the hospital at this time. Discussed that if patient would like to leave, he would need to sign out against medical advice as it was recommended that he be admitted to the hospital. Patient was agreeable to this. I discussed risks of signing out AMA, including , disability, recurrent syncope and injury. Patient voiced understanding of risks and would still like to leave. A&OX4 and capable of making own decisions. AMA paperwork was signed. Patient will be given information on ENT follow-up. Pain medications sent to pharmacy. Discussed strict return precautions and advised patient can return to the ED at any time to resume evaluation. <Debra Glynn PA-C - Last Filed: 07/31/24 23:02> Medical Records Attestation: I reviewed the patient's medical records. <Debra Glynn PA-C - Last Filed: 07/31/24 23:02> Lab Data Attestation: I reviewed the patient's lab results. <Debra Glynn PA-C - Last Filed: 07/31/24 23:02> Result diagrams: 07/31/24 18:08 07/31/24 18:08 <Debra Glynn PA-C - Last Filed: 07/31/24 23:02> Labs: Lab Results 07/31/24 07/31/24 Range/Units 18:07 18:08 WBC 10.6 H (4.5-10.0) K/mm3 RBC 4.25 L (4.6-6.20) M/mm3 Hgb 13.8 L (14.0-18.0) g/dL Hct 39.9 L (42.0-52.0) % MCV 93.9 (80-100) fl MCH 32.5 (26-34) pg MCHC 34.6 (32-36) g/dl RDW 11.9 (11.5-14.5) % Plt Count 333 (150-375) k/mm3 MPV 8.9 (7.4-10.4) fl Immature Gran % (Auto) 0.3 (0-0.5) % Neut % (Auto) 68.3 (45.5-73.1) % Lymph % (Auto) 21.5 (18.3-44.2) % Warren % (Auto) 7.5 (2.6-8.5) % Eos % (Auto) 1.7 (0-4.4) % Baso % (Auto) 0.7 (0.2-1.2) % Lymph # (Auto) 2.28 (0.9-3.2) K/mm3 Warren # (Auto) 0.8 H (0.1-0.6) K/mm3 Eos # (Auto) 0.2 (0-0.3) K/mm3 Baso # (Auto) 0.1 (0.0-0.1) K/mm3 Abs Immat Gran (auto) 0.03 (0.00-0.031) K/mm3 Absolute Neuts (auto) 7.3 H (1.3-6.7) K/mm3 Absolute Nucleated RBC 0.000 (0.0-0.012) K/mm3 Nucleated RBC % 0.0 (0.0-0.2) % Sodium 136 L (137-145) mmol/L Potassium 3.5 (3.4-5.0) mmol/L Chloride 98 (98-107) mmol/L Carbon Dioxide 30 (22-30) mmol/L Anion Gap 8 (4-12) mmol/L BUN 21 H (9-20) mg/dL Creatinine 0.82 (0.7-1.3) mg/dL Estim Creat Clear Calc 90 ml/min Estimated GFR > 60 (59 - ) Glucose 133 H (65-110) mg/dL Calcium 7.9 L (8.4-10.2) mg/dL Magnesium 2.0 (1.6-2.3) mg/dL Total Bilirubin 0.7 (0.2-1.3) mg/dL AST 16 L (17-59) U/L ALT 17 (6-50) U/L Alkaline Phosphatase 69 (38-126) U/L Total Creatine Kinase 36 L (55-170) U/L Troponin I < 0.012 (0.000-0.034) ng/mL Total Protein 6.0 L (6.3-8.2) g/dL Albumin 3.6 (3.5-5.1) g/dL <Debra Glynn PA-C - Last Filed: 07/31/24 23:02> Lab Results 07/31/24 07/31/24 Range/Units 18:07 18:08 WBC 10.6 H (4.5-10.0) K/mm3 RBC 4.25 L (4.6-6.20) M/mm3 Hgb 13.8 L (14.0-18.0) g/dL Hct 39.9 L (42.0-52.0) % MCV 93.9 (80-100) fl MCH 32.5 (26-34) pg MCHC 34.6 (32-36) g/dl RDW 11.9 (11.5-14.5) % Plt Count 333 (150-375) k/mm3 MPV 8.9 (7.4-10.4) fl Immature Gran % (Auto) 0.3 (0-0.5) % Neut % (Auto) 68.3 (45.5-73.1) % Lymph % (Auto) 21.5 (18.3-44.2) % Warren % (Auto) 7.5 (2.6-8.5) % Eos % (Auto) 1.7 (0-4.4) % Baso % (Auto) 0.7 (0.2-1.2) % Lymph # (Auto) 2.28 (0.9-3.2) K/mm3 Warren # (Auto) 0.8 H (0.1-0.6) K/mm3 Eos # (Auto) 0.2 (0-0.3) K/mm3 Baso # (Auto) 0.1 (0.0-0.1) K/mm3 Abs Immat Gran (auto) 0.03 (0.00-0.031) K/mm3 Absolute Neuts (auto) 7.3 H (1.3-6.7) K/mm3 Absolute Nucleated RBC 0.000 (0.0-0.012) K/mm3 Nucleated RBC % 0.0 (0.0-0.2) % Sodium 136 L (137-145) mmol/L Potassium 3.5 (3.4-5.0) mmol/L Chloride 98 (98-107) mmol/L Carbon Dioxide 30 (22-30) mmol/L Anion Gap 8 (4-12) mmol/L BUN 21 H (9-20) mg/dL Creatinine 0.82 (0.7-1.3) mg/dL Estim Creat Clear Calc 90 ml/min Estimated GFR > 60 (59 - ) Glucose 133 H (65-110) mg/dL Calcium 7.9 L (8.4-10.2) mg/dL Magnesium 2.0 (1.6-2.3) mg/dL Total Bilirubin 0.7 (0.2-1.3) mg/dL AST 16 L (17-59) U/L ALT 17 (6-50) U/L Alkaline Phosphatase 69 (38-126) U/L Total Creatine Kinase 36 L (55-170) U/L Troponin I < 0.012 (0.000-0.034) ng/mL Total Protein 6.0 L (6.3-8.2) g/dL Albumin 3.6 (3.5-5.1) g/dL <Jeremy Long MD - Last Filed: 07/31/24 23:03> Imaging Data Attestation: I personally reviewed and interpreted this imaging study as follows: < Debra Glynn PA-C - Last Filed: 07/31/24 23:02> Radiologist's impression: ITS Impressions Chest X-Ray 07/31/24 17:43 IMPRESSION: No focal infiltrate or effusion. Head CT 07/31/24 18:51 IMPRESSION: No acute intracranial findings. Highly suggestive left fracture nasal bone. Head/Cervical Spine/Facial Bones CT 07/31/24 19:03 IMPRESSION: No acute osseous abnormality cervical spine. CT facial & cervical spine wo Ordering provider: Debra Glynn PA-C History: . fall, hi, abrasions/pain to face . Comparison: None. Technique: Thin slice axial CT of the facial bones was performed without contrast. Coronal and sagittal reformatted images were also obtained. . Automated exposure control and iterative reconstruction technique were employed. The dose-length product was 605.33 mGy-cm. FINDINGS: PARANASAL SINUSES: Well aerated. Prominent 30 minutes with possible cavity. BONES: Left Nasal bone fracture. No other fractures seen. ORBITS AND SUPERFICIAL SOFT TISSUES: The optic globes and orbits are normal. The superficial soft tissues are normal. VISUALIZED MASTOIDS: Well aerated. LIMITED VISUALIZED BRAIN PARENCHYMA: Normal. IMPRESSION: Left nasal bone fracture. Otherwise, the No facial fracture. Knee X-Ray 07/31/24 19:05 IMPRESSION: No acute fracture or dislocation. Knee X-Ray 07/31/24 19:06 IMPRESSION: No acute fracture or dislocation <MARIA DE JESUS Martínez Last Filed: 07/31/24 23:02> ECG Data EKG #1: Attestation: I personally reviewed and interpreted this ECG as follows: <MARIA DE JESUS Martínez Last Filed: 07/31/24 23:02> ECG completion date: 07/31/24 <MARIA DE JESUS Martínez Last Filed: 07/31/24 23:02> ECG completion time: 18:02 <MARIA DE JESUS Martínez Last Filed: 07/31/24 23:02> EKG Interpretation: bradycardia (59), sinus rhythm, non-specific ST changes and prolonged QT <MARIA DE JESUS Martínez Last Filed: 07/31/24 23:02> Discharge Plan Discharge Clinical Impression: Syncope and collapse, Orthostatic hypotension Fracture of nasal bone Qualifiers: Encounter type: initial encounter Fracture type: closed Qualified Code(s): S 02.2XXA - Fracture of nasal bones, initial encounter for closed fracture <MARIA DE JESUS Martínez Last Filed: 07/31/24 23:02> Patient Disposition: Left Against Medical Advice <MARIA DE JESUS Martínez Last Filed: 07/31/24 23:02> Condition: Guarded Prognosis <MARIA DE JESUS Martínez Last Filed: 07/31/24 23:02> Instructions: Nasal Fracture (ED), Syncope (ED), Hypotension (ED) <MARIA DE JESUS Martínez Last Filed: 07/31/24 23:02> Additional Instructions: It was recommended that you be admitted to the hospital, however you are deciding against this. Stay very well hydrated at home. Avoid abrupt position changes as this could cause a drop in your blood pressure. Follow-up with your primary care doctor for further evaluation. Also need to follow-up with ENT for evaluation of the nasal bone fracture. Avoid blowing your nose, sneeze with your mouth open. Recommend frequent icing to face. Continue Tylenol and ibuprofen as needed for pain. [place] as needed for more severe pain. Return to the ED if you experience recurrent symptoms, recurrent passing out, severe dizziness or lightheadedness, unable to keep down food or drink, chest pain, difficulty breathing, or any other symptoms of concern. <Debra Glynn PA-C - Last Filed: 07/31/24 23:02> Patient Language: Maltese <Debra Glynn PA-C - Last Filed: 07/31/24 23:02> Prescriptions: New hydrocodone-acetaminophen 5-325 mg tablet 1 tablet PO Q6H PRN (Reason: pain) Qty: 15 0RF No Action ondansetron 4 mg tablet,disintegrating 4 mg PO Q6H PRN (Reason: nausea and vomiting) 3 Days Qty: 12 0RF <Debra Glynn PA-C - Last Filed: 07/31/24 23:02> Follow-up/Referrals: Lesa Carnes DO [Physician] - (PRIMARY CARE) Scooter Rothman MD [Physician] - (ENT) PHYSICIAN,ENDOSCOPE TECHNICIAN [Primary Care Provider] - <Debra Glynn PA-C - Last Filed: 07/31/24 23:02> Time of Disposition: 22:15 <Debra Glynn PA-C - Last Filed: 07/31/24 23:02> 22:15 <Jeremy Long MD - Last Filed: 07/31/24 23:03>
[2024-07-31 18:14] LABS: Basophils Absolute Auto 0.1 K/mm3 (0.0-0.1); Basophils Percent Auto 0.7 % (0.2-1.2); Eosinophils Absolute Auto 0.2 K/mm3 (0-0.3); Eosinophils Percent Auto 1.7 % (0-4.4); Hematocrit 39.9 % (42.0-52.0); Hemoglobin 13.8 g/dL (14.0-18.0); Immature Granulocyte Absolute 0.03 K/mm3 (0.00-0.031); Immature Granulocyte Percent A 0.3 % (0-0.5); Lymphocytes Absolute Auto 2.28 K/mm3 (0.9-3.2); Lymphocytes Percent Auto 21.5 % (18.3-44.2); Mean Corpuscular HGB Conc 34.6 g/dl (32-36); Mean Corpuscular Hemoglobin 32.5 pg (26-34); Mean Corpuscular Volume 93.9 fl (80-100); Mean Platelet Volume 8.9 fl (7.4-10.4); Monocytes Absolute Auto 0.8 K/mm3 (0.1-0.6); Monocytes Percent Auto 7.5 % (2.6-8.5); Neutrophils Absolute Auto 7.3 K/mm3 (1.3-6.7); Neutrophils Percent Auto 68.3 % (45.5-73.1); Platelet Count Result 333 k/mm3 (150-375); Red Blood Count 4.25 M/mm3 (4.6-6.20); Red Cell Distribution Width 11.9 % (11.5-14.5); White Blood Count 10.6 K/mm3 (4.5-10.0)
[2024-07-31] MEDS: SODIUM CHLORIDE 0.9% IV 1,000 ML 999 ML IV CONT ×2 (18:17→18:18)
[2024-07-31 18:26] LABS: Alanine Aminotransferase 17 U/L (6-50); Albumin Level 3.6 g/dL (3.5-5.1); Alkaline Phosphatase 69 U/L (38-126); Anion Gap 8 mmol/L (4-12); Aspartate Amino Transferase 16 U/L (17-59); Bilirubin,Total 0.7 mg/dL (0.2-1.3); Blood Urea Nitrogen 21 mg/dL (9-20); Calcium 7.9 mg/dL (8.4-10.2); Carbon Dioxide 30 mmol/L (22-30); Chloride 98 mmol/L (98-107); Estimated CRCL calculation 90 ml/min; Estimated Glomerular Filt Rate > 60; Glucose 133 mg/dL (65-110); Potassium 3.5 mmol/L (3.4-5.0); Sodium 136 mmol/L (137-145)
[2024-07-31 18:44] LABS: Troponin I < 0.012 ng/mL (0.000-0.034)
--- OUTSIDE RECORDS SUMMARY | 2024-07-31 19:02 | XMS_ITS | Clinical Summary ---
Author Organization [facility] Address [address] [place] [id number] Care Team Providers Care Copywriting Intern Name Role Phone Unavailable Primary Care Provider Unavailabl e Social History Tobacco Use Types Packs/Day Years Used Date Smoking Tobacco: Never Assessed Sex and Gender Information Value Date Recorded Sex Assigned at Not on file Legal Sex Male 7:57 PM CDT Gender Identity Not on file Sexual Orientation Not on file Plan of Treatment Upcoming Encounters Date Type Department Care Team (Late st Contact Info) Description 08/17/2024 8:00 AM CDT Office Visit [facility] Family [facility] - [place] [phone] Afshin Hoang MD [address] [place] [address] Health Maintenance Due Date Last Done Comments Annual Physical 1999 Hepatitis C 2014 DTaP, Tdap and Td Vaccines ( 1 - Tdap) 2015 Hepatitis B Vaccines (1 of 3 - 19+ 3-dose series) 2015 COVID-19 Vaccine (2023-2 5 season) 2024 Influenza Adult (#1) 2024 HPV Vaccines Aged Out No longer eligi ble based on patient's age to complete this topic Meningococcal B Vaccine Aged Out No l onger eligible based on patient's age to complete this topic Meningococcal Vaccine Aged Out No vargas sonia eligible based on patient's age to complete this topic Pneumococcal Vaccine: Pediat rics (0 to 5 Years) and At-Risk Patients (6 to 64 Years) Aged Out No longer eligible b ased on patient's age to complete this topic RSV Immunizations Under 20 Months Aged Out No longer eligible based on patient's age to complete this topic Insurance [facility]
--- OUTSIDE RECORDS SUMMARY | 2024-07-31 19:02 | XMS_ITS | Patient Health Record ---
Author Organization [facility] Address [address] [place] [address] Care Team Providers Care Parking Meter Collector Name Role Phone Wilfrido Zurita Primary Care Provider [phone] Allergies No Known Allergies Reason For Referral No Information Medications Medication SIG (Take, Route, Frequency, Duration) Notes Start Date End Date Status Prochlorperazine Maleate 10 MG 1 tablet as needed for nausea Orally every 6 hours 11/28/2020 Active Gabapentin 300 MG 1 capsule Orally thr ee times a day Active Nicorette 4 MG 1 lozenge as needed Mouth/Throat every 4 hours 11/28/2020 Active Buprenorphine HCl-Naloxone HCl 4-1 MG 1 film under the tongue and allow to dissolve UP TO 3 DAILY DIRECTED FOR HOME INDUCTION Sublingual DIRECTED 11/28/2020 Active Social History Tobacco Use: Social History Observation Description Date Details (start date - stop date) Current Smoker NA - NA Sex Assigned At : Social History Observation Description Sex Assigned At Male Dont use, Tobacco Use/Smoking Question Answer Notes Are you a current every day smoker Problems Problem Type SNOMED Code ICD Code Onset Dates Problem Status W/U Status Risk Notes Problem Tobacco use (886502330) Tobacco use disorder (F17.200) Active confirmed Problem 3477029 Opioid use disorder (F11.99) Active confirmed Plan Of Treatment No Information Medical (General) History Surgical History Surgery Date(Month/Year)
[2024-07-31] MEDS: TETANUS,DIPHTHERIA,AC PERTUSSIS ADULT (0.5 ML) BOOSTRIX IM (20:12)
[2024-07-31] MEDS: KETOROLAC 30 MG/ML VIAL (*BKC) IV PUSH (21:17)
[2024-07-31] MEDS: SODIUM CHLORIDE 0.9% IV 1,000 ML 125 ML IV CONT (21:18)
[2024-07-31] MEDS: oxyCODONE HCL (*CRX) 5 MG TAB IR PO (21:18)
[2024-07-31 21:54] LABS: Creatine Kinase 36 U/L (55-170)
== END 2024-07-31 23:30 | disposition left against medical advice (07) ==
PROVIDERS: Student in an Organized Health Care Education/Training Program; Emergency Provider Physician Assistant
DX: I95.1 Orthostatic hypotension (principal); S02.2XXA Fracture of nasal bones, initial encounter for closed fracture; Z23 Encounter for immunization; J45.909 Unspecified asthma, uncomplicated; E11.9 Type 2 diabetes mellitus without complications; K21.9 Gastro-esophageal reflux disease without esophagitis; F41.9 Anxiety disorder, unspecified; F32.A Depression, unspecified; F17.210 Nicotine dependence, cigarettes, uncomplicated; W18.39XA Other fall on same level, initial encounter; R00.1 Bradycardia, unspecified
CPT/HCPCS: 36415; 70450; 70486; 71046; 72125; 73564; 80053; 82550; 83735; 84484; 85025; 90471; 90715; 93005; 96361; 96374; 96375; 99284; A9270; J1885; J7030

== ENCOUNTER 2024-12-04 14:12 | Emergency (ER) | payer SELFPAY ==
[2024-12-04] VITALS (8 sets, daily range): BP systolic 144; BP diastolic 97; PULSE 82–111; RESP 6–27; TEMP 36.8; O2SAT 96–100
--- NOTE | 2024-12-04 14:14 | ED_ITS ---
HPI - General Adult General Chief complaint: Altered Mental Status Stated complaint: ams History of Present Illness HPI narrative: 29-year-old male presents to the emergency department for evaluation after having a syncopal episode where he was found cyanotic and unresponsive in his vehicle. EMS did wake the patient up but he was still somnolent. Patient was treated with Narcan and patient's respirations improved and patient was more alert and appropriate. Patient states he did not use any narcotics today. Patient reports he does have a prior history of narcotic use but does not use narcotics currently. Patient denies any other substance abuse. Patient denies any prior cardiac history. Patient denies any significant past medical history. Related Data Allergies Allergy/AdvReac Type Severity Reaction Status Date / Time No Known Allergies Allergy Verified 12/04/24 14:28 Review of Systems 2 Review of Systems: All systems reviewed & are unremarkable except as noted in HPI and below PMFSH Past Medical History Medical History Tobacco dependence Asthma Gastroesophageal reflux disease Type 2 diabetes mellitus Anxiety Depression Surgical History Surgical History No history of previous surgery Family History Family History Mother Graves disease Vai thyroiditis, fibrous variant Thyroid disease Rheumatoid arthritis Social History Social History Social History: Surrogate decision maker: Tobi Whitlock, father. Code status: Full code. Smoking packs per day: 1 Smoking cigarettes per day: 20.0 Years smoked: 8 Smoking pack-years: 8.00 Smoking status: Current every day smoker Second hand tobacco smoke exposure: Yes Alcohol intake: former Substance use: current Substance use type: marijuana and heroin Other substance usage details: he states he has not used heroin in 6 months Last use: 11/21/21 Additional living arrangements comments: Resides in [place]. Additional occupation/education comments: Works for an [employer]. Spiritual care concerns: No Exam 2 Narrative: APPEARANCE: Well appearing, no pain, no distress, well-nourished. HEAD: normocephalic, atraumatic. EYES: PERRLA/EOMI, conjunctivae clear. NOSE: Normal no drainage EARS:TMS clear with good light reflex. THROAT: Pharynx clear, no exudate. NECK: Supple. No adenopathy, no masses. RESPIRATORY: Airway patent, respirations nonlabored. Clear to auscultation bilaterally, no rales, rhonchi, wheezing. CARDIOVASCULAR: Regular rate and rhythm without murmurs rubs or gallops. ABDOMINAL: Soft, nontender, nondistended, normal bowel sounds MUSCULOSKELETAL: Moves all extremities. Strength/ROM intact, No edema, No calf tenderness. NEURO: Alert. Cranial nerves II through XII intact. Grossly intact SKIN: Warm, dry. Normal Color Course Vital Signs Vital signs: Vital Signs Temperature 98.2 F 12/04/24 14:16 Pulse Rate 92 12/04/24 14:16 Respiratory Rate 12 12/04/24 14:16 Blood Pressure 144/97 H 12/04/24 14:16 Pulse Oximetry 100 12/04/24 14:16 Oxygen Delivery Room Air 12/04/24 14:16 Temperature 98.2 F 12/04/24 14:16 Pulse Rate 98 12/04/24 16:00 Respiratory Rate 27 H 12/04/24 16:00 Blood Pressure 144/97 H 12/04/24 14:16 Pulse Oximetry 98 12/04/24 16:00 Oxygen Delivery Room Air 12/04/24 14:27 Medical Decision Making MDM Narrative Medical decision making narrative: 29-year-old male presents emergency department for evaluation for possible narcotic overdose. Patient basically denies using any narcotics. Patient as to be discharged prior to completing his medical workup. Patient was alert and appropriate. Patient had no recurrence of respiratory distress while in the emergency department. Etiology could be secondary to seizure patient was advised not to drive until cleared by his primary care physician. Differential Diagnosis Differential Diagnosis: Narcotic overdose, seizure, cardiac syncope Vital Signs Vital Signs: Vital Signs Temperature 98.2 F 12/04/24 14:16 Pulse Rate 92 12/04/24 14:16 Respiratory Rate 12 12/04/24 14:16 Blood Pressure 144/97 H 12/04/24 14:16 Pulse Oximetry 100 12/04/24 14:16 Oxygen Delivery Room Air 12/04/24 14:16 Temperature 98.2 F 12/04/24 14:16 Pulse Rate 98 12/04/24 16:00 Respiratory Rate 27 H 12/04/24 16:00 Blood Pressure 144/97 H 12/04/24 14:16 Pulse Oximetry 98 12/04/24 16:00 Oxygen Delivery Room Air 12/04/24 14:27 Lab Data Lab results reviewed: Yes I reviewed the patient's lab results. 12/04/24 14:35 12/04/24 14:35 Labs: Lab Results 12/04/24 12/04/24 12/04/24 Range/Units 14:23 14:35 14:35 WBC 13.2 H (4.5-10.0) K/mm3 RBC 4.95 (4.6-6.20) M/mm3 Hgb 15.6 (14.0-18.0) g/dL Hct 46.2 (42.0-52.0) % MCV 93.3 (80-100) fl MCH 31.5 (26-34) pg MCHC 33.8 (32-36) g/dl RDW 12.0 (11.5-14.5) % Plt Count 426 H (150-375) k/mm3 MPV 8.7 (7.4-10.4) fl Immature Gran % (Auto) 0.5 (0-0.5) % Neut % (Auto) 75.1 H (45.5-73.1) % Lymph % (Auto) 17.3 L (18.3-44.2) % [place] % (Auto) 5.0 (2.6-8.5) % Eos % (Auto) 1.5 (0-4.4) % Baso % (Auto) 0.6 (0.2-1.2) % Lymph # (Auto) 2.29 (0.9-3.2) K/mm3 [place] # (Auto) 0.7 H (0.1-0.6) K/mm3 Eos # (Auto) 0.2 (0-0.3) K/mm3 Baso # (Auto) 0.1 (0.0-0.1) K/mm3 Abs Immat Gran (auto) 0.07 H (0.00-0.031) K/mm3 Absolute Neuts (auto) 9.9 H (1.3-6.7) K/mm3 Absolute Nucleated RBC 0.000 (0.0-0.012) K/mm3 Nucleated RBC % 0.0 (0.0-0.2) % PT 14.0 (11.1-14.7) Seconds INR 1.1 APTT 23.3 (22.3-36.8) Seconds Sodium 137 (137-145) mmol/L Potassium 3.9 (3.4-5.0) mmol/L Chloride 102 (98-107) mmol/L Carbon Dioxide 22 (22-30) mmol/L Anion Gap 13 H (4-12) mmol/L BUN 12 D (9-20) mg/dL Creatinine 0.79 (0.7-1.3) mg/dL Estim Creat Clear Calc 96 ml/min Estimated GFR > 60 (59 - ) Glucose 206 H (65-110) mg/dL POC Capillary Glucose 213 H (65-105) mg/dl Calcium 9.9 (8.4-10.2) mg/dL Total Bilirubin 0.4 (0.2-1.3) mg/dL AST 29 (17-59) U/L ALT 27 (6-50) U/L Alkaline Phosphatase 70 (38-126) U/L Total Protein 7.7 (6.3-8.2) g/dL Albumin 4.6 (3.5-5.1) g/dL Salicylates < 1.0 L (2-20) mg/dL Acetaminophen < 10 L (10-30) ug/mL Ethyl Alcohol < 10 < 10 (<10) mg/dL Discharge Plan Discharge Clinical Impression: Syncope and collapse Patient Disposition: Home Condition: Stable Instructions: Antibiotic Form, General Patient Instructions, New-Onset Seizure in Adults (ED) Additional Instructions: We do not have an explanation for your syncopal episode. One possibility is seizure. I recommend not driving into you are cleared by your primary care physician. Avoid use of narcotics. If you have any worsening symptoms then please call or return to the emergency department. You were offered further evaluation but you preferred to leave. Patient Language: [place] Prescriptions: No Action ondansetron 4 mg tablet,disintegrating 4 mg PO Q6H PRN (Reason: nausea and vomiting) 3 Days Qty: 12 0RF hydrocodone-acetaminophen 5-325 mg tablet 1 tablet PO Q6H PRN (Reason: pain) Qty: 15 0RF Follow-up/Referrals: Lesa Carnes DO [Primary Care Provider] - Phong Hines MD [Physician] -
--- NOTE | 2024-12-04 14:29 | PCCCNOTE ---
Provided a bus token per request d/t the pt being d/c from the ED.-brooke
--- OUTSIDE RECORDS SUMMARY | 2024-12-04 14:35 | XMS_ITS | Patient Health Record ---
Author Organization [facility] Address [address] [place] [address] Care Team Providers Care Transportation Aid Name Role Phone Wilfrido Zurita Primary Care Provider Allergies No Known Allergies Reason For Referral [...] W/U Status Risk Notes Problem Tobacco use (153118860) Tobacco use disorder (F17.200) Active confirmed Problem Opioid use disorder (6531300103) Opioid use disorder (F11.99) Active confirmed Plan Of Treatment No Information Medical (General) History Surgical History Surgery Date(Month/Year)
[2024-12-04 14:44] LABS: Hematocrit 46.2 % (42.0-52.0); Hemoglobin 15.6 g/dL (14.0-18.0); Immature Granulocyte Percent A 0.5 % (0-0.5); Lymphocytes Absolute Auto 2.29 K/mm3 (0.9-3.2); Mean Corpuscular HGB Conc 33.8 g/dl (32-36); Mean Corpuscular Hemoglobin 31.5 pg (26-34); Mean Corpuscular Volume 93.3 fl (80-100); Nucleated Red Blood Cells Absolute Auto 0.000 K/mm3 (0.0-0.012); Nucleated Red Blood Cells Perc 0.0 % (0.0-0.2); Platelet Count Result 426 k/mm3 (150-375); Red Blood Count 4.95 M/mm3 (4.6-6.20); White Blood Count 13.2 K/mm3 (4.5-10.0)
[2024-12-04 14:55] LABS: Alanine Aminotransferase 27 U/L (6-50); Albumin Level 4.6 g/dL (3.5-5.1); Alkaline Phosphatase 70 U/L (38-126); Aspartate Amino Transferase 29 U/L (17-59); Bilirubin,Total 0.4 mg/dL (0.2-1.3); Total Protein 7.7 g/dL (6.3-8.2)
[2024-12-04 14:56] LABS: Acetaminophen < 10 ug/mL (10-30); INR 1.1; Partial Thromboplastin Time 23.3 Seconds (22.3-36.8); Prothrombin Time 14.0 Seconds (11.1-14.7); Salicylate < 1.0 mg/dL (2-20)
--- NOTE | 2024-12-04 15:32 | ECG_ITS ---
Test Date: 2024-12-04 14:26:24 Measurements Intervals [place] Rate: 95 P: 48 MN: 132 QRS: 15 QRSD: 79 T: 60 QT: 386 QTc: 486 Interpretive Statements SINUS RHYTHM NONSPECIFIC T-WAVE ABNORMALITY BORDERLINE ECG Compared to ECG 07/31/2024 18:02:30 QT PROLONGATION HAS IMPROVED Electronically Signed On 12-05-2024 08:42:33 CDT by Kristofer Cerda M.D.
[2024-12-04 15:38] LABS: Anion Gap 13 mmol/L (4-12); Blood Urea Nitrogen 12 mg/dL (9-20); Calcium 9.9 mg/dL (8.4-10.2); Carbon Dioxide 22 mmol/L (22-30); Chloride 102 mmol/L (98-107); Estimated CRCL calculation 96 ml/min; Estimated Glomerular Filt Rate > 60; Glucose 206 mg/dL (65-110); Potassium 3.9 mmol/L (3.4-5.0); Sodium 137 mmol/L (137-145)
== END 2024-12-04 17:14 | disposition home or self-care (01) ==
PROVIDERS: Emergency Provider Emergency Medicine; PCP Family Medicine
DX: R55 Syncope and collapse (principal); J45.909 Unspecified asthma, uncomplicated; E11.9 Type 2 diabetes mellitus without complications; K21.9 Gastro-esophageal reflux disease without esophagitis; F17.210 Nicotine dependence, cigarettes, uncomplicated; R94.31 Abnormal electrocardiogram [ECG] [EKG]
CPT/HCPCS: 36415; 80053; 80143; 80179; 82077; 82948; 85025; 85610; 85730; 93005; 99283